=== PATIENT | male | born 1960 | race African-American/Black ===

== ENCOUNTER 2020-09-18 16:55 | Observation (INO) | payer MEDICARE, OTHER ==
[~2020-09-18] VITALS: Ht 175.3 cm; Wt 90.2 kg
[2020-09-18] MEDS ORDERED: NS 500 ML IV ONE (17:15)
[2020-09-18] MEDS ORDERED: NITROGLYCERIN 0.4 MG SUBL TABLET SL PRN (17:15)
[2020-09-18] MEDS ORDERED: ASPIRIN 81 MG CHEW TABLET PO ONE (17:15)
[2020-09-18 17:53] LABS: BASO % 0.6 % (0.0-1.0); EOS # 0.4 10^3/uL (0.0-0.5); EOS % 5.3 % (0.0-3.0); HEMATOCRIT 35.2 % (42.0-52.0); HEMOGLOBIN 11.1 g/dl (13.5-17.5); LYMPH # 2.5 10^3/uL (1.5-5.0); LYMPH % 36.4 % (24.0-44.0); MEAN CORPUSCULAR HGB CONC 31.5 g/dl (32.0-36.5); MEAN CORPUSCULAR VOLUME 82.4 fl (80.0-96.0); MONO # 0.7 10^3/uL (0.0-0.8); MONO % 9.4 % (0.0-5.0); NEUTROPHILS # 3.3 10^3/uL (1.5-8.5); PLATELET COUNT, AUTOMATED 246 10^3/uL (150-450); RED BLOOD COUNT 4.27 10^6/uL (4.30-6.10); WHITE BLOOD COUNT 6.9 10^3/uL (4.0-10.0)
[2020-09-18] MEDS ORDERED: GLIP2.5T6 PO (17:56)
[2020-09-18] MEDS ORDERED: NOVOINJ SC (17:56)
[2020-09-18] MEDS ORDERED: INSUDET SC (17:56)
[2020-09-18] MEDS ORDERED: ASPI81CH33 PO (17:58)
[2020-09-18] MEDS ORDERED: GABA800T4 PO (17:59)
[2020-09-18] MEDS ORDERED: COLC1CAP PO (18:00)
[2020-09-18] MEDS ORDERED: VENL150C43 PO (18:02)
[2020-09-18] MEDS ORDERED: HYDR-4517 PO (18:03)
[2020-09-18 18:04] LABS: INR 0.93; PROTHROMBIN TIME 12.7 SECONDS (12.5-14.3)
[2020-09-18] MEDS ORDERED: KLON1TAB PO (18:04)
[2020-09-18 18:05] LABS: PARTIAL THROMBOPLASTIN TIME 28.1 SECONDS (24.2-38.5)
[2020-09-18] MEDS ORDERED: CARV3.12 PO (18:06)
[2020-09-18 18:07] LABS: D-DIMER QUANT 449.06 ng/ml (<500)
[2020-09-18] MEDS ORDERED: NIFE10CA2 PO (18:07)
[2020-09-18] MEDS ORDERED: LIPI10TA PO (18:09)
[2020-09-18 18:22] LABS: ALBUMIN 3.4 GM/DL (3.2-5.2); ALT/SGPT 31 U/L (12-78); BILIRUBIN,DIRECT < 0.1 MG/DL (0.0-0.2); BILIRUBIN,TOTAL 0.2 MG/DL (0.2-1.0); BLOOD UREA NITROGEN 49 MG/DL (7-18); CALCIUM LEVEL 8.7 MG/DL (8.8-10.2); CARBON DIOXIDE LEVEL 24 MEQ/L (21-32); CHLORIDE LEVEL 108 MEQ/L (98-107); CK-MB VALUE MASS 1.4 NG/ML (<3.6); CPK CREATINE PHOSPHOKINASE 294 U/L (39-308); CREATININE FOR GFR 2.58 MG/DL (0.70-1.30); GLOMERULAR FILTRATION RATE 27.2 (>49); GLUCOSE, FASTING 283 MG/DL (70-100); LIPASE 336 U/L (73-393); MB/CK RELATIVE INDEX 0.48 (< OR =4); NT-PRO BNP 101 PG/ML (<125); POTASSIUM SERUM 4.7 MEQ/L (3.5-5.1); SODIUM LEVEL 139 MEQ/L (136-145); THYROID STIMULATING HORMONE 0.875 uIU/ML (0.358-3.740); TOTAL PROTEIN 7.2 GM/DL (6.4-8.2); TROPONIN I < 0.02 NG/ML (< 0.10)
--- NOTE | 2020-09-18 18:59 | REP ---
INDICATION: CHEST PAIN. COMPARISON: None. TECHNIQUE: SINGLE PORTABLE AP VIEW OF THE CHEST WAS PERFORMED. FINDINGS: There is mild elevation of the right hemidiaphragm with mild linear fibro atelectatic change in the right lung base. There is no acute infiltrate. The heart is not enlarged. The mediastinal silhouette is unremarkable. The visualized osseous structures appear intact with mild degenerative changes at the shoulders. IMPRESSION: NO ACUTE PULMONARY DISEASE. <Electronically signed by Ector Au > 09/18/20 1824
[2020-09-18] MEDS ORDERED: HYDR-4514 PO (20:24)
[2020-09-18] MEDS ORDERED: ATOR80TA59 PO (20:24)
[2020-09-18] MEDS ORDERED: CLON-412 PO (20:24)
[2020-09-18] MEDS ORDERED: NIFE60TA40 PO (20:24)
[2020-09-18] MEDS ORDERED: GLIP10TA6 PO (20:24)
[2020-09-18] MEDS ORDERED: LANTINJ4 SC (20:24)
[2020-09-18] MEDS ORDERED: CHLO125TA PO (20:24)
[2020-09-18] MEDS ORDERED: COMMENTS (20:25)
[2020-09-18] MEDS ORDERED: COLCHICINE 0.6 MG TABLET PO SCH (21:00)
[2020-09-18] MEDS ORDERED: VENLAFAXINE **XR** 75MG CAPSULE PO SCH (21:00)
[2020-09-18] MEDS ORDERED: ENOXAPARIN 40MG/0.4ML SYRINGE (J1650 PER 10MG) SC SCH (21:00)
[2020-09-18] MEDS ORDERED: HumaLOG INSULIN (NovoLOG) PER UNIT SC SCH (21:00)
[2020-09-18] MEDS ORDERED: LEVEMIR (INSULIN DETEMIR) 1 UNITS/0.01ML SC SCH (21:00)
[2020-09-18] MEDS ORDERED: ATORVASTATIN 20 MG TAB PO SCH (21:00)
[2020-09-18 21:05] LABS: HEMOGLOBIN A1c 13.8 %
[2020-09-18] MEDS ORDERED: GLUCAGON INJ 1MG VIAL SC PRN (23:15)
[2020-09-18] MEDS ORDERED: GABAPENTIN 400 MG CAP PO PRN (23:15)
[2020-09-18] MEDS ORDERED: MOM 30ML SUSPENSION UDC PO PRN (23:15)
[2020-09-18] MEDS ORDERED: GLUCOSE 4GM CHEW TABLET PO PRN (23:15)
[2020-09-18] MEDS ORDERED: ACETAMINOPHEN TAB 650MG DOSE (2X325MG) PO PRN (23:15)
[2020-09-18] MEDS ORDERED: DEXTROSE 50% 50 ML SYRINGE IV PRN (23:15)
[2020-09-18] MEDS: NS 1,000 ML IV SCH (23:20)
[2020-09-18 23:55] LABS: CK-MB VALUE MASS 1.7 NG/ML (<3.6); CPK CREATINE PHOSPHOKINASE 243 U/L (39-308); TROPONIN I < 0.02 NG/ML (< 0.10)
[2020-09-19 00:55] VITALS: BP 128/84
[2020-09-19] MEDS: CARVedilol 3.125 MG TAB PO SCH ×2 (01:40→08:24)
[2020-09-19] MEDS: ANEXSIA, NORCO 7.5MG/325MG TABLET(HYDROCODONE/APAP) PO PRN ×2 (01:42→08:37)
--- NOTE | 2020-09-19 03:13 | HPEPDOC ---
[facility] Medical History & Physical Date of Admission Sep 19, 2020 Date of Service: Sep 19, 2020 Attending Physician: Blue Olson MD History and Physical CHIEF COMPLAINT: chest pain, hyperglycemia HISTORY OF PRESENT ILLNESS: Leonard Simental is a 60 YO M with history of DM2, CKD, hx CVA who presents to the ED this evening complaining of chest pain, shortness of breath and difficult to control hyperglycemia. The patient is in the [facility] visiting from [place]. He states that he has had sharp chest pain for "some time now," estimating several months, on the left side of his chest that sometimes radiates down his R arm. He does not recall ever having seen a road cleaner for this pain. The reason he presented tonight is because he is feeling more short of breath with activity. He states he is unable to make it from his bed to the bathroom in his house without getting short of breath and feeling quite fatigued. The shortness of breath is almost always accompanied by his chest pain. He has not been coughing. He states he sleeps on several pillows in order to feel comfortable. He had two CVAs at the end of 2018 and had an extensive stay in inpatient rehabilitation, only recently he started walking with a cane and not requiring a wheelchair to get around. He tells me he feels very deconditioned and have noticed the muscle tone in his legs has decreased significantly. In regards to his hyperglycemia, he was recently treated with oral steroids for a gout flare and attributes that to his difficulty controlling his glucose. PAST MEDICAL HISTORY: 1. DM2, A1c 13.8% 2. CAD, no stents 3. History of CVA x 2 requiring inpatient rehab 4. CKD, diabetic nephropathy, unknown baseline function PAST SURGICAL HISTORY: 1. Hernia repair 2. Neurosurgery, s/p TBI SOCIAL HISTORY: Never smoker, Never drinker, denies other drugs FAMILY HISTORY: Reviewed and noncontributory ALLERGIES: Please see below. REVIEW OF SYSTEMS: Constitutional: No Weight Change, No Fever, No Chills, No Night Sweats, No Fatigue, No Malaise Eyes: No Eye Pain, No Swelling, No Redness, No Foreign Body, No Discharge, No Vision Changes Cardiovascular: Reports sharp intermittent Chest Pain radiating to his R arm, Reports SOB, Reports PND, Reports Dyspnea on Exertion, reports Orthopnea, No Claudication, No Edema, No Palpitations Respiratory: No Cough, No Wheezing, Reports Dyspnea Gastrointestinal: No Nausea, No Vomiting, No Diarrhea, reports some Constipation, No Pain, No Heartburn, No Anorexia, No Dysphagia, No Hematochezia, No Melena, No Flatulence, No Jaundice Genitourinary: No Dysuria Musculoskeletal: No Arthralgias, No Myalgias, No Joint Swelling, No Joint Stiffness, No Back Pain, No Neck Pain Skin: No Skin Lesions, No Pruritis, No Hair Changes, No Breast/Skin Changes, No Nipple Discharge Neuro: No Weakness, No Numbness, No Paresthesias, No Loss of Consciousness, No Syncope, No Dizziness, No Headache, No Coordination Changes, No Recent Falls Psych: No Anxiety/Panic, No Depression, No Insomnia, No Personality Changes, No Delusions HOME MEDICATIONS: Please see below. PHYSICAL EXAMINATION: VITAL SIGNS: see below GENERAL: alert and oriented, in no apparent distress, pleasant and conversant in full sentences. HEENT: PERRL, EOMI, Oral mucous membranes are moist without lesions. NECK: The patient has no noted JVD. No adenopathy is appreciated. No thyromegaly CHEST/LUNGS: Lungs are clear bilaterally without rhonchi, rales, or wheezes. There is no subcutaneous air appreciated. There is no tenderness to the chest wall. HEART: Regular rate and rhythm. No murmurs, rubs, or gallops are appreciated. Distal pulses are 2+. No carotid bruits appreciated. ABDOMEN: Soft, nontender, and nondistended. Bowel sounds are positive. No organomegaly is appreciated. No masses are appreciated. There are no peritoneal signs. There is no Blanchard sign. EXTREMITIES: No peripheral edema. There is no focal long bone tenderness or deformity. SKIN: The patients skin is warm and dry, without rashes or lesions. PSYCHIATRIC: AAO x 3, normal mood/affect NEUROLOGIC: The patient has 5/5 strength to the upper and lower extremities bilaterally. Sensation is intact throughout. Deep tendon reflexes are 2+ in all four extremities. There are no deficits to the cranial nerves. LABORATORY DATA: See below. IMAGING: CXR: FINDINGS: There is mild elevation of the right hemidiaphragm with mild linear fibro atelectatic change in the right lung base. There is no acute infiltrate. The heart is not enlarged. The mediastinal silhouette is unremarkable. The visualized osseous structures appear intact with mild degenerative changes at the shoulders. IMPRESSION: NO ACUTE PULMONARY DISEASE. RENAL US: Pending official read MICROBIOLOGY: Please see below. ASSESSMENT: This is a 60 YO M with history of DM2, CAD, CVA x2 who presents with shortness of breath, fatigue and chest pain found to have acute kidney injury (unsure of baseline renal function) and hyperglycemia. He will be admitted for observation of cardiac function and for management of hyperglycemia. PLAN: 1. Chest pain: concerning for anginal symptoms considering the time course. EKG and cardiac markers are normal thus far. Patient will likely need outpatient follow up for stress test. -EKG NSR x2 without concerning ST changes -Troponins x 2 negative -s/p ASA in ED -Day team may benefit from getting PCP records from [place] to better understand his dx of CAD and perhaps get most recent studies (cath, Echo, EKG, etc) -Continue ASA, Atorvastatin 2. Hyperglycemia: in the setting of recent steroid use for gout flare -A1c found to be 13.8% -Will continue home Levemir 40U, SSI, Hypoglycemic protocol -Holding home Glipizide 3. Acute kidney injury: -Unsure of patient's baseline renal function but in speaking to the he has never been told he has renal dysfunction before. -Renal US pending -UA negative -Holding home nephrotoxic medications -IV fluids NS 100cc/hr -Holding home Chlorthalidone 4. HTN: -Continue home Clonidine, Coreg 5. Chronic pain: -Continue home Gabapentin 6. Mood disorder: -Continue home Venlafaxine DVT ppx: Lovenox DISPO: Observation, telemetry. Likely dc within 24h Vital Signs Vital Signs Date Time Temp Pulse Resp B/P (MAP) Pulse Ox O2 Delivery O2 Flow Rate FiO2 09/19/20 01:42 15 09/19/20 01:40 59 09/19/20 00:55 98.1 128/84 (99) 98 Room Air Laboratory Data Labs 24H Laboratory Tests 2 09/18/20 17:33: Estimated Mean Plasma Glucose 349H, Hemoglobin A1c 13.8 09/18/20 17:34: Immature Granulocyte % (Auto) 0.3, Neutrophils (%) (Auto) 48.0, Lymphocytes (%) (Auto) 36.4, Monocytes (%) (Auto) 9.4H, Eosinophils (%) (Auto) 5.3H, Basophils (%) (Auto) 0.6, Neutrophils # (Auto) 3.3, Lymphocytes # (Auto) 2.5, Monocytes # (Auto) 0.7, Eosinophils # (Auto) 0.4, Basophils # (Auto) 0.0, Nucleated Red Blood Cells % (auto) 0.0, Prothrombin Time 12.7, Prothromb Time International Ratio 0.93, Activated Partial Thromboplast Time 28.1, D-Dimer, Quantitative 449.06, Anion Gap 7L, Glomerular Filtration Rate 27.2L, Calcium Level 8.7L, Total Bilirubin 0.2, Direct Bilirubin < 0.1, Aspartate Amino Transf (AST/SGOT) 14, Alanine Aminotransferase (ALT/SGPT) 31, Alkaline Phosphatase 142H, Total Creatine Kinase 294, Creatine Kinase MB 1.4, Creatine Kinase MB Relative Index 0.48, Troponin I < 0.02, UN-Ugb-Q-Type Natriuretic Peptide 101, Total Protein 7.2, Albumin 3.4, Albumin/Globulin Ratio 0.9, Lipase 336, Thyroid Stimulating Hormone (TSH) 0.875 09/18/20 19:16: Bedside Glucose (Misc Panel) 236H 09/18/20 21:11: Coronavirus (COVID-19)(PCR) NEGATIVE 09/18/20 23:00: Total Creatine Kinase 243, Creatine Kinase MB 1.7, Creatine Kinase MB Relative Index 0.70, Troponin I < 0.02 09/18/20 23:59: Urine Color YELLOW, Urine Appearance CLEAR, Urine pH 5.0, Urine Specific Lucas 1.014, Urine Protein NEGATIVE, Urine Glucose (UA) 3+H, Urine Ketones NEGATIVE, Urine Blood NEGATIVE, Urine Nitrite NEGATIVE, Urine Bilirubin NEGATIVE, Urine Urobilinogen 0.2, Urine Leukocyte Esterase NEGATIVE, Urine WBC (Auto) 0, Urine RBC (Auto) 0, Urine Hyaline Casts (Auto) 0, Urine Bacteria (Auto) NEGATIVE, Urine Squamous Epithelial Cells 0, Urine Sperm (Auto) CBC/BMP Laboratory Tests 09/18/20 17:34 Home Medications Scheduled Aspirin (Aspirin) 81 Mg Tab.chew, 81 MG PO QHS Atorvastatin Calcium (Atorvastatin Calcium) 80 Mg Tablet, 80 MG PO QHS Carvedilol (Carvedilol) 3.125 Mg Tablet, 3.125 MG PO BID Chlorthalidone (Chlorthalidone) 25 Mg Tablet, 25 MG PO DAILY Clonidine HCl (Clonidine HCl) 0.1 Mg Tablet, 0.1 MG PO Q2D Colchicine (Colchicine) 0.6 Mg Capsule, 0.6 MG PO QHS Glipizide (Glipizide) 10 Mg Tablet, 10 MG PO QHS Insulin Aspart (Novolog) 100 Unit/1 Ml Cartridge, 1 UNITS SC ASDIRECTED SLIDING SCALE Insulin Glargine,Hum.rec.anlog (Lantus Solostar) 100 Unit/1 Ml Insuln.pen, 40 UNITS SC QHS Nifedipine (Nifedipine ER) 60 Mg Tablet.er, 60 MG PO QHS Venlafaxine HCl (Venlafaxine HCl ER) 150 Mg Cap.er.24h, 150 MG PO QHS Scheduled PRN Clonazepam (Klonopin) 1 Mg Tablet, 1 MG PO BID PRN for anxiety Gabapentin (Gabapentin) 800 Mg Tablet, 800 MG PO BID PRN for PAIN Hydrocodone/Acetaminophen (Hydrocodone-Acetamin 7.5-325) 1 Each Tablet, 1 TAB PO QID PRN for PAIN Miscellaneous Medications [Comments] PATIENT OFTEN ALTERNATES MEDS INSTEAD OF TAKING EVERY DAY Allergies Coded Allergies: No Known Allergies (Verified Allergy, Unknown, 09/18/20) A-FIB/CHADSVASC A-FIB History Current/History of A-Fib/PAF?: No Current PO Anticoag Therapy: No GME ATTESTATION GME ATTESTATION My faculty preceptor for this patient encounter was physically present during the encounter and was fully available. All aspects of the patient interview, examination, medical decision making process, and medical care plan development were reviewed and approved by the faculty preceptor. The faculty preceptor is aware and concurs with the plan as stated in the body of this note and will attest to such by his/her cosignature. NUHA ARANA MD Sep 19, 2020 01:52
[2020-09-19 06:00] VITALS: BP 151/87
[2020-09-19 07:30] LABS: HEMATOCRIT 34.8 % (42.0-52.0); HEMOGLOBIN 10.7 g/dl (13.5-17.5); MEAN CORPUSCULAR HEMOGLOBIN 25.7 pg (27.0-33.0); MEAN CORPUSCULAR HGB CONC 30.7 g/dl (32.0-36.5); MEAN CORPUSCULAR VOLUME 83.7 fl (80.0-96.0); PLATELET COUNT, AUTOMATED 237 10^3/uL (150-450); RED BLOOD COUNT 4.16 10^6/uL (4.30-6.10); WHITE BLOOD COUNT 6.1 10^3/uL (4.0-10.0)
[2020-09-19] MEDS ORDERED: HumaLOG INSULIN (NovoLOG) PER UNIT SC SCH (07:30)
[2020-09-19 08:05] LABS: BLOOD UREA NITROGEN 41 MG/DL (7-18); CALCIUM LEVEL 9.1 MG/DL (8.8-10.2); CARBON DIOXIDE LEVEL 26 MEQ/L (21-32); CHLORIDE LEVEL 108 MEQ/L (98-107); CK-MB VALUE MASS 1.9 NG/ML (<3.6); CPK CREATINE PHOSPHOKINASE 251 U/L (39-308); CREATININE FOR GFR 1.98 MG/DL (0.70-1.30); GLOMERULAR FILTRATION RATE 44.7 (>49); GLUCOSE, FASTING 257 MG/DL (70-100); MB/CK RELATIVE INDEX 0.76 (< OR =4); POTASSIUM SERUM 4.7 MEQ/L (3.5-5.1); SODIUM LEVEL 138 MEQ/L (136-145); TROPONIN I < 0.02 NG/ML (< 0.10)
[2020-09-19 08:23] VITALS: BP 146/89
[2020-09-19] MEDS: NS 1,000 ML IV SCH (08:38)
--- NOTE | 2020-09-19 08:59 | ECGEPIP ---
[facility] - ED Test Date: 2020-09-18 Pat Name: CAROLA DUNN Department: Room: [place] [address] Gender: Male Jinrikisha Driver: digna : 1960 Requested By: Kristin Herron Order Number: [id number] Reading MD: Kristin Herron Measurements Intervals [place] Rate: 65 P: 50 [place]: 165 QRS: -1 QRSD: 110 T: 91 QT: 384 QTc: 402 Interpretive Statements SINUS RHYTHM NONSPECIFIC ST & T-WAVE ABNORMALITY SIMILAR 09/18/2017:13 Electronically Signed on 09-19-2020 8:59:01 EST by Kristin Herron
[2020-09-19] MEDS ORDERED: cloNIDine 0.1 MG TAB PO SCH (09:00)
--- NOTE | 2020-09-19 09:48 | REP ---
INDICATION: MARTY?. COMPARISON: None. TECHNIQUE: Real-time sonographic evaluation of the kidneys is performed. FINDINGS: Renal cortical echogenicity pattern is normal bilaterally and contours are smooth. There is no evidence of hydronephrosis, cyst, mass, or calculus in either kidney. The right kidney measures 11.0 x 5.9 x 5.0 cm. Left renal dimensions are 10.9 x 4.5 x 5.7 cm. The urinary bladder is not distended. IMPRESSION: Negative renal ultrasound. <Electronically signed by Ector Au > 09/19/20 0955
[2020-09-19] MEDS ORDERED: MUCI600T31 PO (10:10)
[2020-09-19] MEDS ORDERED: LANTINJ4 SC (10:10)
--- NOTE | 2020-09-19 15:52 | DSES ---
DISCHARGE SUMMARY DATE OF ADMISSION: 09/18/2020 DATE OF DISCHARGE: 09/19/2020 DIAGNOSES: 1. Noncardiac chest pain. 2. Poorly controlled type 2 diabetes. 3. Chronic kidney disease, stage III 4. Anemia secondary to chronic kidney disease. HISTORY: Leonard Simental was admitted with atypical chest pain. He had the discomfort in his left upper chest, says he attributes to post nasal drip and upper respiratory congestion. He has a history of coronary artery disease, type 2 diabetes was poorly controlled with hemoglobin A1c over 13%. History of strokes. History of diabetic nephropathy and with stage III chronic kidney disease. HOSPITAL COURSE: Admitted to telemetry bed. He had no arrhythmias. Cardiac enzymes were negative. Troponins were flat. On the day of discharge, he was eager to go home. His blood pressure is 146/89. His chest discomfort has resolved. He has postnasal drainage and congestion. Lungs clear. Abdomen soft, nontender. No peripheral edema. LABORATORY : As summarized above. Chest x-ray: No heart disease. DISPOSITION: The patient is discharged and improved in stable condition. Follow up with his primary care provider as an outpatient. [place]. Apparently has been out of his Lantus insulin for quite a while. So, I will send a prescription for Lantus insulin 40 units subcutaneous q.h.s. He should continue his other medications as he was taking previously and he claims to have sufficient numbers of these and he wanted something for his congestion, so I have ordered some Mucinex for him as well. His diet should be no concentrated sweets, no added salt, low fat, cholesterol. Activity as tolerated. Follow up with his primary care provider (PCP) with particular attention towards his diabetic issues upon returning home.
[2020-09-19] MEDS ORDERED: ASPIRIN 81 MG CHEW TABLET PO SCH (21:00)
--- NOTE | 2020-09-20 20:29 | ECGEPIP ---
[facility] Test Date: 2020-09-18 Pat Name: CAROLA DUNN Department: Room: [place] [address] Gender: Male Indirect Sales Representative: milly : 1960 Requested By: NUHA ARANA Order Number: [id number] Reading MD: Rogelio Mcallister Measurements Intervals [place] Rate: 72 P: 60 [place]: 162 QRS: 8 QRSD: 84 T: 86 QT: 366 QTc: 402 Interpretive Statements SINUS RHYTHM NONSPECIFIC ST & T-WAVE ABNORMALITY No prior ECG available for comparison at the time of interpretation. Electronically Signed on 09-20-2020 20:28:57 EST by Rogelio Mcallister
== END 2020-09-19 11:54 | disposition home or self-care (01) ==
LOC: M ED 16:55 → M ED INP 16:56 → EDBEDREQSVC 19:59 → M MSPAV 09-19 00:56
PROVIDERS: ADMIT Family Medicine; ATTEND Family Medicine
DX: R07.89 Other chest pain (principal); E11.21 Type 2 diabetes mellitus with diabetic nephropathy; E11.65 Type 2 diabetes mellitus with hyperglycemia; N18.30 Chronic kidney disease, stage 3 unspecified; D63.1 Anemia in chronic kidney disease; N17.9 Acute kidney failure, unspecified; Z86.73 Personal history of transient ischemic attack (TIA), and cerebral infarction without residual deficits; M10.9 Gout, unspecified; I10 Essential (primary) hypertension; I25.10 Atherosclerotic heart disease of native coronary artery without angina pectoris; G89.29 Other chronic pain; F39 Unspecified mood [affective] disorder; Z79.4 Long term (current) use of insulin; Z79.899 Other long term (current) drug therapy; Z79.82 Long term (current) use of aspirin; Z88.8 Allergy status to other drugs, medicaments and biological substances
CPT/HCPCS: 36415; 71045; 76775; 80048; 80076; 81001; 82550; 82553; 83036; 83690; 83880; 84443; 84484; 85025; 85027; 85379; 85610; 85730; 93005; 93041; 94760; 96360; 96361; 96372; 99285; G0378; J1650; U0002

== ENCOUNTER 2021-07-27 19:32 | Emergency (ER) | payer MEDICARE, OTHER ==
[~2021-07-27] VITALS: Ht 175.3 cm; Wt 90.9 kg
[~2021-07-27 19:32] MED LIST: ASPI81CH33 PO; ATOR80TA59 PO; CARV3.12 PO; CHLO125TA PO; CLON-412 PO; COLC1CAP PO; COMMENTS; GABA800T4 PO; GLIP10TA6 PO; GLIP2.5T6 PO; HYDR-4514 PO; HYDR-4517 PO; INSUDET SC; KLON1TAB PO; LANTINJ4 SC; LIPI10TA PO; MUCI600T31 PO; NIFE10CA2 PO; NIFE60TA40 PO; NOVOINJ SC; VENL150C43 PO
--- OUTSIDE RECORDS SUMMARY | 2021-07-27 19:37 | CCD ---
Author Author [facility] Address Unknown Phone Unavailable Support Name Relationship Address Phone RE Next Of Kin Unknown Unavailable ROYA DUNN Next Of Kin [address], [place] [id number] Re-disclosure Warning The records that you are about to access may contain information from federally-assisted alcohol or drug abuse programs. If such information is present, then the following federally mandated warning applies: This information has been disclosed to you from records protected by federal confidentiality rules (42 CFR part 2). The federal rules prohibit you from making any further disclosure of this information unless further disclosure is expressly permitted by the written consent of the person to whom it pertains or as otherwise permitted by 42 CFR part 2. A general authorization for the release of medical or other information is NOT sufficient for this purpose. The Federal rules restrict any use of the information to criminally investigate or prosecute any alcohol or drug abuse patient.The records that you are about to access may contain highly sensitive health information, the redisclosure of which is protected by Article 27-F of the [facility] Public Health law. If you continue you may have access to information: Regarding HIV / AIDS; Provided by facilities licensed or operated by the [facility] Office of Mental Health; or Provided by the [facility] Office for People With Developmental Disabilities. If such information is present, then the following [facility] mandated warning applies: This information has been disclosed to you from confidential records which are protected by state law. State law prohibits you from making any further disclosure of this information without the specific written consent of the person to whom it pertains, or as otherwise permitted by law. Any unauthorized further disclosure in violation of state law may result in a fine or usp sentence or both. A general authorization for the release of medical or other information is NOT sufficient authorization for further disc losure. Medications No Information Insurance Providers Payer name Policy type / Coverage type Policy ID Covered alliance party ID Covered alliance party's relationship to alanis Policy Alanis Plan Information MEDICARE [id number] FOR LIFE [id number] MEDICARE [id number] Problems, Conditions, and Diagnoses No Information Surgeries/Procedures No Information Results ID Date Data Source [id number] 09/18/2020 09:11:00 PM EST [facility] Name Value Range Interpretation Code Description Data Sylvia rce(s) Supporting Document(s) SARS coronavirus 2 RNA [Presence] in Res piratory specimen by [place] with probe detection [facility] This lab was ordered by [facility] a nd reported by [facility]. Procedure Social History No Information
[2021-07-27] MEDS ORDERED: MORPHINE 2 MG/ML 1ML VIAL (J2270) IV ONE (20:45)
[2021-07-27] MEDS ORDERED: PERCOCET 5MG/325MG TAB PO ONE (20:45)
[2021-07-27] MEDS ORDERED: CHLORTHALIDONE 25 MG TAB PO ONE (20:45)
[2021-07-27] MEDS ORDERED: COLCHICINE 0.6 MG TABLET PO ONE (20:45)
[2021-07-27] MEDS ORDERED: lisinopriL 40 MG TAB PO ONE (20:45)
[2021-07-27 21:10] LABS: APPEARANCE, URINE CLEAR (CLEAR); BACTERIA, URINE AUTO NEGATIVE (NEGATIVE); BILIRUBIN, URINE AUTO NEGATIVE (NEGATIVE); BLOOD, URINE BLOOD 1+ (NEGATIVE); COLOR, URINE STRAW (YELLOW); GLUCOSE, URINE (UA) AUTO 3+ mg/dL (NEGATIVE); KETONE, URINE AUTO NEGATIVE (NEGATIVE); LEUKOCYTE ESTERASE, URINE AUTO NEGATIVE (NEGATIVE); NITRITE, URINE AUTO NEGATIVE (NEGATIVE); PROTEIN, URINE AUTO 2+ mg/dL (NEGATIVE); RBC, URINE AUTO 1 /HPF (0-3); SPECIFIC GRAVITY URINE AUTO 1.018 (1.002-1.035); SQUAMOUS EPITHELIAL CELL UR AU 0 /HPF (0-6); UROBILINOGEN, URINE AUTO 0.2 mg/dL (0.0-2.0); WBC, URINE AUTO 0 /HPF (0-3)
[2021-07-27 21:12] LABS: BASO % 0.3 % (0.0-1.0); EOS # 0.4 10^3/uL (0.0-0.5); HEMATOCRIT 32.3 % (42.0-52.0); LYMPH # 1.4 10^3/uL (1.5-5.0); LYMPH % 12.1 % (24.0-44.0); MEAN CORPUSCULAR HEMOGLOBIN 26.3 pg (27.0-33.0); MONO # 1.4 10^3/uL (0.0-0.8); MONO % 11.8 % (2.0-8.0); NEUTROPHILS # 8.4 10^3/uL (1.5-8.5); NEUTROPHILS % 72.3 % (36.0-66.0); PLATELET COUNT, AUTOMATED 234 10^3/uL (150-450); WHITE BLOOD COUNT 11.6 10^3/uL (4.0-10.0)
[2021-07-27] MEDS ORDERED: NIFEdipine 30 MG XL TAB PO STA (21:19)
[2021-07-27] MEDS ORDERED: NIFE1TAB52 PO (21:20)
[2021-07-27] MEDS ORDERED: LISI40TA4 PO (21:21)
[2021-07-27] MEDS ORDERED: ATOR80TA59 PO (21:21)
[2021-07-27] MEDS ORDERED: CHLO50TA PO (21:21)
[2021-07-27] MEDS ORDERED: CLOP75TA2 PO (21:22)
[2021-07-27] MEDS ORDERED: HYDR-3716 PO (21:24)
[2021-07-27 21:34] LABS: CREATININE FOR GFR 2.51 MG/DL (0.70-1.30); GLOMERULAR FILTRATION RATE 33.9 (>49); POTASSIUM SERUM 4.8 MEQ/L (3.5-5.1)
[2021-07-27 21:35] LABS: CALCIUM LEVEL 8.3 MG/DL (8.8-10.2)
[2021-07-27] MEDS ORDERED: HumuLIN R (REGULAR) INSULIN (NovoLIN R) **100U/ML** PER UNIT IV ONE (21:45)
[2021-07-27 22:33] VITALS: BP 198/124
--- NOTE | 2021-07-27 22:54 | REPVR ---
PROCEDURE INFORMATION: Exam: XR Chest Exam date and time: 07/27/2021 9:51 PM Age: 61 years old Clinical indication: Other: HTN TECHNIQUE: Imaging protocol: XR of the chest. Views: 1 view. COMPARISON: No relevant prior studies available. FINDINGS: Lungs: Hypoexpanded lungs. No consolidation. Pleural spaces: Unremarkable. No pleural effusion. No pneumothorax. Heart/Mediastinum: Unremarkable. No cardiomegaly. Bones/joints: Unremarkable. IMPRESSION: No acute findings. Electronically signed by: Rogelio Brower On 07/27/2021 22:53:56 PM
[2021-07-27] MEDS ORDERED: NORCO 5/325MG TABLET (BULK FOR ED) PO ONE (23:35)
[2021-07-28 00:56] VITALS: BP 176/106
--- NOTE | 2021-07-28 18:59 | ECGEPIP ---
[facility] - ED Test Date: 2021-07-27 Pat Name: CAROLA DUNN Department: Room: - Gender: Male Principal Secretary: DERICK : 1961-06-26 Requested By: Yang Baum Order Number: [id number] Reading MD: Kristin Herron Measurements Intervals [place] Rate: 92 P: 59 [place]: 168 QRS: 5 QRSD: 80 T: 33 QT: 340 QTc: 420 Interpretive Statements Normal sinus rhythm Nonspecific T wave abnormality increased rate 09/18/20 Electronically Signed on 07-28-2021 18:59:34 EDT by Kristin Herron
== END 2021-07-28 01:15 | disposition home or self-care (01) ==
LOC: M ED 19:32 → EDBD 19:32 → M ED 07-28 01:15
DX: E11.65 Type 2 diabetes mellitus with hyperglycemia (principal); I13.10 Hypertensive heart and chronic kidney disease without heart failure, with stage 1 through stage 4 chronic kidney disease, or unspecified chronic kidney disease; N18.1 Chronic kidney disease, stage 1; M19.90 Unspecified osteoarthritis, unspecified site; M79.601 Pain in right arm; M25.561 Pain in right knee; M25.562 Pain in left knee; I25.2 Old myocardial infarction; F41.9 Anxiety disorder, unspecified; F32.A Depression, unspecified; F17.200 Nicotine dependence, unspecified, uncomplicated; Z79.4 Long term (current) use of insulin; Z79.899 Other long term (current) drug therapy
CPT/HCPCS: 71045; 80048; 81001; 85025; 93005; 93041; 96374; 99285; J2270

== ENCOUNTER 2022-09-22 04:13 | Emergency (ER) | payer MEDICARE, OTHER ==
[~2022-09-22 04:13] MED LIST changes: +CHLO50TA PO; +CLOP75TA2 PO; +HYDR-3716 PO; +LISI40TA4 PO; +NIFE1TAB52 PO
[2022-09-22 04:45] LABS: BASO % 0.3 % (0.0-1.0); EOS # 0.4 10^3/uL (0.0-0.5); EOS % 3.6 % (0.0-3.0); HEMATOCRIT 30.1 % (42.0-52.0); HEMOGLOBIN 9.6 g/dl (13.5-17.5); LYMPH # 1.3 10^3/uL (1.5-5.0); LYMPH % 13.1 % (24.0-44.0); MEAN CORPUSCULAR HGB CONC 31.9 g/dl (32.0-36.5); MEAN CORPUSCULAR VOLUME 84.6 fl (80.0-96.0); MONO % 10.2 % (2.0-8.0); NEUTROPHILS # 7.3 10^3/uL (1.5-8.5); NEUTROPHILS % 72.6 % (36.0-66.0); PLATELET COUNT, AUTOMATED 402 10^3/uL (150-450); RED BLOOD COUNT 3.56 10^6/uL (4.30-6.10)
[2022-09-22] MEDS ORDERED: MORPHINE 4 MG/ML 1ML VIAL IV ONE (04:55)
[2022-09-22 04:56] LABS: LIPASE 56 U/L (12-53)
[2022-09-22 04:58] LABS: ALBUMIN 3.1 G/DL (3.2-5.2); ALKALINE PHOSPHATASE 140 U/L (46-116); ALT/SGPT 26 U/L (7.0-40); AST/SGOT 14 U/L (<34); BILIRUBIN,DIRECT < 0.1 MG/DL (<0.4); BILIRUBIN,TOTAL 0.2 MG/DL (0.3-1.2); BLOOD UREA NITROGEN 47 MG/DL (9-23); CALCIUM LEVEL 8.9 MG/DL (8.3-10.6); CARBON DIOXIDE LEVEL 23 MMOL/L (20-31); CHLORIDE LEVEL 104 MMOL/L (98-107); CK-MB VALUE MASS 1.2 NG/ML (<3.6); CPK CREATINE PHOSPHOKINASE 300 U/L (46-171); CREATININE FOR GFR 2.65 MG/DL (0.70-1.30); GLOMERULAR FILTRATION RATE 31.8 (>49); GLUCOSE, FASTING 247 MG/DL (74-106); POTASSIUM SERUM 4.9 MMOL/L (3.5-5.1); SODIUM LEVEL 135 MMOL/L (136-145)
[2022-09-22] MEDS ORDERED: NS 1,000 ML IV ONE (06:05)
[2022-09-22] MEDS ORDERED: diazePAM 10MG/2ML SYRINGE (J3360 PER 5MG) IV ONE (06:20)
[2022-09-22 08:15] VITALS: BP 161/86
== END 2022-09-22 08:25 | disposition home or self-care (01) ==
LOC: M ED 04:13 → EDBD 04:13 → M ED 08:25
DX: G89.4 Chronic pain syndrome (principal); E11.9 Type 2 diabetes mellitus without complications; I10 Essential (primary) hypertension; E78.5 Hyperlipidemia, unspecified; Z79.84 Long term (current) use of oral hypoglycemic drugs; Z79.811 Long term (current) use of aromatase inhibitors; Z79.82 Long term (current) use of aspirin; Z79.899 Other long term (current) drug therapy
CPT/HCPCS: 71045; 80048; 80076; 82550; 82553; 83690; 84484; 85025; 85730; 87486; 87581; 87633; 87798; 93005; 93041; 94760; 96361; 96374; 96375; 99284; J2270; J3360

== ENCOUNTER 2022-10-29 14:01 | Inpatient (IN) | payer MEDICARE, OTHER ==
[~2022-10-29] VITALS: Ht 175.3 cm; Wt 89.9 kg
[2022-10-29] MEDS ORDERED: MORPHINE 4 MG/ML 1ML VIAL IV ONE (17:15)
[2022-10-29] MEDS ORDERED: NS 1,000 ML IV ONE (17:15)
[2022-10-29 17:51] LABS: BASO # 0.1 10^3/uL (0.0-0.2); BASO % 0.4 % (0.0-1.0); EOS % 0.1 % (0.0-3.0); HEMATOCRIT 33.7 % (42.0-52.0); HEMOGLOBIN 10.4 g/dl (13.5-17.5); LYMPH # 2.5 10^3/uL (1.5-5.0); LYMPH % 15.3 % (24.0-44.0); MEAN CORPUSCULAR HEMOGLOBIN 26.4 pg (27.0-33.0); MEAN CORPUSCULAR HGB CONC 30.9 g/dl (32.0-36.5); MEAN CORPUSCULAR VOLUME 85.5 fl (80.0-96.0); NEUTROPHILS # 11.1 10^3/uL (1.5-8.5); NEUTROPHILS % 68.7 % (36.0-66.0); PLATELET COUNT, AUTOMATED 290 10^3/uL (150-450); RED BLOOD COUNT 3.94 10^6/uL (4.30-6.10); WHITE BLOOD COUNT 16.1 10^3/uL (4.0-10.0)
[2022-10-29 18:01] LABS: INR 1.08; PROTHROMBIN TIME 14.2 SECONDS (12.5-14.5)
[2022-10-29 18:02] LABS: PARTIAL THROMBOPLASTIN TIME 36.6 SECONDS (24.8-34.2)
[2022-10-29 18:10] LABS: URIC ACID 7.3 MG/DL (3.7-9.2)
[2022-10-29 18:12] LABS: C REACTIVE PROTEIN QUANTITATIV 26.6 MG/DL (<1.0)
[2022-10-29 18:13] LABS: BILIRUBIN,DIRECT 0.4 MG/DL (<0.4)
[2022-10-29 18:14] LABS: BILIRUBIN,TOTAL 0.9 MG/DL (0.3-1.2); CALCIUM LEVEL 8.6 MG/DL (8.3-10.6); CREATININE FOR GFR 2.21 MG/DL (0.70-1.30); GLOMERULAR FILTRATION RATE 39.3 (>49); POTASSIUM SERUM 4.2 MMOL/L (3.5-5.1); TOTAL PROTEIN 7.4 G/DL (5.7-8.2)
[2022-10-29 18:26] LABS: RSV AMPLIFICATION NEGATIVE (NEGATIVE)
[2022-10-29 19:01] LABS: ERYTHROCYTE SEDIMENTATION RATE > 130 mm/hr (0-20)
[2022-10-29 19:03] LABS: MONO # 2.4 10^3/uL (0.0-0.8)
[2022-10-29] MEDS ORDERED: VANCOMYCIN HCL 1,750 MG in IV FLUID PLACE HOLDER 1 EA IV ONE (19:15)
[2022-10-29] MEDS ORDERED: PIPERACILLIN/TAZOBACTAM SOD 4.5 GM in D5W MINI-BAG PLUS 50 ML IV ONE (19:15)
[2022-10-29] MEDS ORDERED: ACETAMINOPHEN TAB 650MG DOSE (2X325MG) PO PRN (19:50)
[2022-10-29] MEDS ORDERED: VANCOMYCIN HCL 1,000 MG, VIAL MATE ADAPTER 1 EACH in D5W 250 ML IV ONE (20:00)
[2022-10-29] MEDS ORDERED: VANCOMYCIN HCL 750 MG, VIAL MATE ADAPTER 1 EACH in D5W 250 ML IV ONE (20:00)
[2022-10-29] MEDS: NS 1,000 ML IV SCH (20:09)
[2022-10-29] MEDS ORDERED: CHLO50TA PO (20:13)
[2022-10-29] MEDS ORDERED: GABA600T4 PO (20:13)
[2022-10-29] MEDS ORDERED: CLOP75TA99 PO (20:13)
[2022-10-29] MEDS ORDERED: NIFE30TA50 PO (20:13)
[2022-10-29] MEDS ORDERED: ATOR80TA59 PO (20:13)
[2022-10-29] MEDS ORDERED: STEGLATRO (20:15)
[2022-10-29] MEDS ORDERED: ALLO10TA PO (20:15)
[2022-10-29] MEDS ORDERED: BACL10TA2 PO (20:15)
[2022-10-29] MEDS ORDERED: allopurinoL 300 MG TAB PO PRN (20:20)
[2022-10-29] MEDS ORDERED: GLUCAGON INJ 1MG VIAL SC PRN (20:20)
[2022-10-29] MEDS ORDERED: GLUCOSE 4GM CHEW TABLET PO PRN (20:20)
[2022-10-29] MEDS ORDERED: DEXTROSE 50% 50ML SYRINGE IV PRN (20:20)
[2022-10-29] MEDS ORDERED: HOME MED LIST COMPLETE! XX SCH (20:20)
[2022-10-29] MEDS: INSULIN LISPRO (NovoLOG) PER UNIT SC SCH (21:00)
[2022-10-29] MEDS: ATORVASTATIN 20 MG TAB PO SCH (21:51)
[2022-10-29] MEDS: GABAPENTIN 300 MG CAP PO SCH (21:51)
[2022-10-29] MEDS: BACLOFEN 10 MG TAB PO SCH (21:51)
[2022-10-29] MEDS: MORPHINE 4 MG/ML 1ML VIAL IV PRN (21:51)
[2022-10-29] MEDS: CARVedilol 3.125 MG TAB PO SCH (21:52)
[2022-10-29] MEDS: COLCHICINE 0.6 MG TABLET PO SCH (21:52)
[2022-10-29] MEDS: LEVEMIR (INSULIN DETEMIR) 1 UNITS/0.01ML SC SCH (21:59)
[2022-10-29 22:00] VITALS: BP 180/87
[2022-10-29] MEDS: ANEXSIA, NORCO 7.5MG/325MG TABLET(HYDROCODONE/APAP) PO PRN (22:33)
[2022-10-30] VITALS: BP 142/76
[2022-10-30] MEDS ORDERED: methylPREDNISolone 125MG 2ML VIAL IV STA (00:42)
[2022-10-30] MEDS ORDERED: PIPERACILLIN/TAZOBACTAM SOD 2.25 GM in D5W MINI-BAG PLUS 50 ML IV SCH (02:00)
[2022-10-30] MEDS ORDERED: PIPERACILLIN/TAZOBACTAM SOD 3.375 GM in D5W MINI-BAG PLUS 50 ML IV SCH (02:00)
[2022-10-30 04:00] VITALS: BP 142/66
[2022-10-30 06:41] LABS: HEMATOCRIT 29.9 % (42.0-52.0); HEMOGLOBIN 9.2 g/dl (13.5-17.5); MEAN CORPUSCULAR HEMOGLOBIN 26.2 pg (27.0-33.0); MEAN CORPUSCULAR HGB CONC 30.8 g/dl (32.0-36.5); MEAN CORPUSCULAR VOLUME 85.2 fl (80.0-96.0); PLATELET COUNT, AUTOMATED 248 10^3/uL (150-450); RED BLOOD COUNT 3.51 10^6/uL (4.30-6.10); WHITE BLOOD COUNT 15.2 10^3/uL (4.0-10.0)
[2022-10-30 07:01] LABS: MAGNESIUM LEVEL 1.4 MG/DL (1.8-2.4)
[2022-10-30 07:08] LABS: ALBUMIN 2.4 G/DL (3.2-5.2); BILIRUBIN,TOTAL 0.8 MG/DL (0.3-1.2); CALCIUM LEVEL 8.1 MG/DL (8.3-10.6); CREATININE FOR GFR 2.25 MG/DL (0.70-1.30); GLOMERULAR FILTRATION RATE 38.4 (>49); POTASSIUM SERUM 4.9 MMOL/L (3.5-5.1)
[2022-10-30] MEDS: INSULIN LISPRO (NovoLOG) PER UNIT SC SCH ×4 (07:30→21:11)
[2022-10-30] MEDS: ASPIRIN 81MG CHEW TABLET PO SCH (08:04)
[2022-10-30] MEDS: CARVedilol 3.125 MG TAB PO SCH (08:05)
[2022-10-30] MEDS: GABAPENTIN 300 MG CAP PO SCH ×3 (08:05→21:09)
[2022-10-30] MEDS: BACLOFEN 10 MG TAB PO SCH ×2 (08:05→21:09)
[2022-10-30] MEDS: VENLAFAXINE **XR** 75MG CAPSULE PO SCH (08:05)
[2022-10-30] MEDS: NS 1,000 ML IV SCH (08:06)
[2022-10-30] MEDS: ANEXSIA, NORCO 7.5MG/325MG TABLET(HYDROCODONE/APAP) PO PRN (08:12)
[2022-10-30] MEDS: NIFEdipine 30MG XL TAB PO SCH ×2 (08:49→10:59)
[2022-10-30] MEDS ORDERED: CHLORTHALIDONE 25 MG TAB PO SCH (09:00)
[2022-10-30] MEDS ORDERED: HYDROMORPHONE HCL 0.5 MG/ 0.5 ML SYRINGE IV ONE (09:35)
[2022-10-30] MEDS ORDERED: ANEXSIA, NORCO 7.5MG/325MG TABLET(HYDROCODONE/APAP) PO ONE (09:35)
[2022-10-30 09:46] LABS: CRYSTALS, BODY FLUID URIC ACID (NONE SEEN); SOURCE, BODY FLUID CRYSTALS RT KNEE
[2022-10-30 09:48] LABS: CRYSTALS, BODY FLUID URIC ACID (NONE SEEN); SOURCE, BODY FLUID CRYSTALS LFT KNEE
[2022-10-30] MEDS ORDERED: **hydrALAZINE** 10 MG TAB PO ONE (10:15)
[2022-10-30 10:21] LABS: SOURCE, BODY FLUID LFT KNEE; SYNOVIAL FLUID COLOR PALE YELLOW (COLORLESS)
[2022-10-30 10:22] LABS: SOURCE, BODY FLUID RT KNEE; SYNOVIAL FLUID COLOR YELLOW (COLORLESS)
[2022-10-30] MEDS ORDERED: CARVedilol 3.125 MG TAB PO ONE (10:30)
[2022-10-30] MEDS: HEPARIN SOD (PORCINE) 5000UNITS/ML 1ML VIAL/SYRINGE SQ SCH ×2 (10:44→21:08)
[2022-10-30] MEDS: ISOSORBIDE DIN. (ISORDIL) 30 MG TAB PO SCH ×2 (12:00→18:42)
[2022-10-30 14:00] VITALS: BP 153/90
[2022-10-30] MEDS: cloNIDine 0.1MG TABLET PO SCH ×2 (16:43→21:00)
[2022-10-30] MEDS ORDERED: **hydrALAZINE** 10 MG TAB PO SCH (18:00)
[2022-10-30 18:30] VITALS: BP 189/98
[2022-10-30] MEDS: **hydrALAZINE HCL** 25 MG TAB PO SCH (18:42)
[2022-10-30] MEDS ORDERED: cloNIDine 0.1MG TABLET PO ONE (18:55)
[2022-10-30 21:00] VITALS: BP 110/81
[2022-10-30] MEDS: ATORVASTATIN 20 MG TAB PO SCH (21:09)
[2022-10-30] MEDS: COLCHICINE 0.6 MG TABLET PO SCH (21:10)
[2022-10-30] MEDS: CARVedilol 6.25 MG TAB PO SCH (21:10)
[2022-10-30] MEDS: LEVEMIR (INSULIN DETEMIR) 1 UNITS/0.01ML SC SCH (21:11)
[2022-10-30 21:30] VITALS: BP 135/85
[2022-10-30] MEDS ORDERED: VANCOMYCIN HCL 1,000 MG, VIAL MATE ADAPTER 1 EACH in NS 250 ML IV SCH (22:00)
[2022-10-31] VITALS: BP 128/80
[2022-10-31] MEDS: cloNIDine 0.1MG TABLET PO SCH ×4 (03:00→20:25)
[2022-10-31] MEDS: methylPREDNISolone 125MG 2ML VIAL IV SCH (04:26)
[2022-10-31] MEDS: **hydrALAZINE HCL** 25 MG TAB PO SCH ×4 (05:05→17:40)
[2022-10-31] MEDS: ISOSORBIDE DIN. (ISORDIL) 30 MG TAB PO SCH ×4 (05:18→17:40)
[2022-10-31 05:47] VITALS: BP 128/79
[2022-10-31 05:53] LABS: BASO % 0.1 % (0.0-1.0); HEMATOCRIT 27.2 % (42.0-52.0); HEMOGLOBIN 8.6 g/dl (13.5-17.5); LYMPH # 1.3 10^3/uL (1.5-5.0); LYMPH % 6.1 % (24.0-44.0); MEAN CORPUSCULAR HGB CONC 31.6 g/dl (32.0-36.5); MEAN CORPUSCULAR VOLUME 85.5 fl (80.0-96.0); MONO # 1.5 10^3/uL (0.0-0.8); MONO % 7.2 % (2.0-8.0); NEUTROPHILS # 17.7 10^3/uL (1.5-8.5); NEUTROPHILS % 85.7 % (36.0-66.0); PLATELET COUNT, AUTOMATED 265 10^3/uL (150-450); RED BLOOD COUNT 3.18 10^6/uL (4.30-6.10); WHITE BLOOD COUNT 20.7 10^3/uL (4.0-10.0)
[2022-10-31 06:19] LABS: CALCIUM LEVEL 8.3 MG/DL (8.3-10.6); CREATININE FOR GFR 2.71 MG/DL (0.70-1.30); POTASSIUM SERUM 5.3 MMOL/L (3.5-5.1)
[2022-10-31 08:17] VITALS: BP 128/79
[2022-10-31] MEDS: INSULIN LISPRO (NovoLOG) PER UNIT SC SCH ×4 (08:18→20:28)
[2022-10-31] MEDS: GABAPENTIN 300 MG CAP PO SCH ×3 (08:18→20:24)
[2022-10-31] MEDS: ASPIRIN 81MG CHEW TABLET PO SCH (08:18)
[2022-10-31] MEDS: BACLOFEN 10 MG TAB PO SCH ×2 (08:18→20:25)
[2022-10-31] MEDS: VENLAFAXINE **XR** 75MG CAPSULE PO SCH (08:18)
[2022-10-31] MEDS: NIFEdipine 30MG XL TAB PO SCH (08:19)
[2022-10-31] MEDS: CARVedilol 6.25 MG TAB PO SCH ×2 (08:19→20:25)
[2022-10-31] MEDS: HEPARIN SOD (PORCINE) 5000UNITS/ML 1ML VIAL/SYRINGE SQ SCH ×2 (08:20→20:26)
[2022-10-31 12:34] LABS: HEMOGLOBIN A1c 8.6 % (4.0-6.0)
[2022-10-31] MEDS: ANEXSIA, NORCO 7.5MG/325MG TABLET(HYDROCODONE/APAP) PO PRN ×2 (12:34→20:38)
[2022-10-31] MEDS: FLUTICASONE PROP 0.05% NASAL SPRAY 16 GM (FLONASE) NARES SCH (13:39)
[2022-10-31 13:50] VITALS: BP 142/88
[2022-10-31 16:57] VITALS: BP 142/88
[2022-10-31] MEDS: ATORVASTATIN 20 MG TAB PO SCH (20:24)
[2022-10-31] MEDS: LEVEMIR (INSULIN DETEMIR) 1 UNITS/0.01ML SC SCH (20:27)
[2022-10-31 22:00] VITALS: BP 171/97
[2022-11-01] MEDS: cloNIDine 0.1MG TABLET PO SCH ×4 (02:49→22:08)
[2022-11-01] MEDS: ANEXSIA, NORCO 7.5MG/325MG TABLET(HYDROCODONE/APAP) PO PRN ×4 (02:50→23:27)
[2022-11-01] MEDS: methylPREDNISolone 125MG 2ML VIAL IV SCH (04:58)
[2022-11-01] MEDS: **hydrALAZINE HCL** 25 MG TAB PO SCH ×5 (04:59→23:37)
[2022-11-01] MEDS: ISOSORBIDE DIN. (ISORDIL) 30 MG TAB PO SCH ×5 (04:59→23:36)
[2022-11-01 05:55] LABS: BASO % 0.1 % (0.0-1.0); HEMATOCRIT 26.3 % (42.0-52.0); HEMOGLOBIN 8.3 g/dl (13.5-17.5); LYMPH # 1.5 10^3/uL (1.5-5.0); LYMPH % 8.7 % (24.0-44.0); MEAN CORPUSCULAR HEMOGLOBIN 26.5 pg (27.0-33.0); MEAN CORPUSCULAR HGB CONC 31.6 g/dl (32.0-36.5); MONO # 1.2 10^3/uL (0.0-0.8); MONO % 6.5 % (2.0-8.0); NEUTROPHILS # 14.8 10^3/uL (1.5-8.5); NEUTROPHILS % 84.1 % (36.0-66.0); PLATELET COUNT, AUTOMATED 289 10^3/uL (150-450); RED BLOOD COUNT 3.13 10^6/uL (4.30-6.10); WHITE BLOOD COUNT 17.6 10^3/uL (4.0-10.0)
[2022-11-01 06:00] VITALS: BP 146/86
[2022-11-01 06:08] LABS: CALCIUM LEVEL 8.2 MG/DL (8.3-10.6); CREATININE FOR GFR 2.36 MG/DL (0.70-1.30); GLOMERULAR FILTRATION RATE 36.4 (>49); POTASSIUM SERUM 4.8 MMOL/L (3.5-5.1)
[2022-11-01] MEDS: BACLOFEN 10 MG TAB PO SCH ×2 (09:04→22:06)
[2022-11-01] MEDS: GABAPENTIN 300 MG CAP PO SCH ×3 (09:04→22:06)
[2022-11-01] MEDS: ASPIRIN 81MG CHEW TABLET PO SCH (09:04)
[2022-11-01] MEDS: CARVedilol 6.25 MG TAB PO SCH ×2 (09:05→22:06)
[2022-11-01] MEDS: NIFEdipine 30MG XL TAB PO SCH (09:05)
[2022-11-01] MEDS: VENLAFAXINE **XR** 75MG CAPSULE PO SCH (09:06)
[2022-11-01] MEDS: HEPARIN SOD (PORCINE) 5000UNITS/ML 1ML VIAL/SYRINGE SQ SCH ×2 (09:08→22:07)
[2022-11-01] MEDS: FLUTICASONE PROP 0.05% NASAL SPRAY 16 GM (FLONASE) NARES SCH (09:09)
[2022-11-01] MEDS: INSULIN LISPRO (NovoLOG) PER UNIT SC SCH ×4 (09:09→22:08)
[2022-11-01 14:00] VITALS: BP 138/90
[2022-11-01 18:38] VITALS: BP 143/96
[2022-11-01 21:14] VITALS: BP 141/95
[2022-11-01] MEDS: ATORVASTATIN 20 MG TAB PO SCH (22:06)
[2022-11-01] MEDS: LEVEMIR (INSULIN DETEMIR) 1 UNITS/0.01ML SC SCH (22:07)
[2022-11-02] MEDS ORDERED: MIRALAX *UNIT DOSE* 17GM PACKET PO PRN (00:25)
[2022-11-02] MEDS ORDERED: SENOKOT S TAB PO ONE (01:00)
[2022-11-02] MEDS: cloNIDine 0.1MG TABLET PO SCH ×4 (03:00→22:28)
[2022-11-02] MEDS: methylPREDNISolone 125MG 2ML VIAL IV SCH (04:01)
[2022-11-02 06:00] VITALS: BP 159/95
[2022-11-02] MEDS: ISOSORBIDE DIN. (ISORDIL) 30 MG TAB PO SCH ×3 (06:09→17:49)
[2022-11-02] MEDS: **hydrALAZINE HCL** 25 MG TAB PO SCH ×3 (06:09→17:49)
[2022-11-02] MEDS: ANEXSIA, NORCO 7.5MG/325MG TABLET(HYDROCODONE/APAP) PO PRN ×2 (06:10→22:27)
[2022-11-02 06:40] LABS: BASO % 0.1 % (0.0-1.0); EOS % 0.3 % (0.0-3.0); HEMOGLOBIN 8.4 g/dl (13.5-17.5); LYMPH # 1.5 10^3/uL (1.5-5.0); LYMPH % 11.8 % (24.0-44.0); MEAN CORPUSCULAR HEMOGLOBIN 26.3 pg (27.0-33.0); MEAN CORPUSCULAR HGB CONC 31.1 g/dl (32.0-36.5); MEAN CORPUSCULAR VOLUME 84.4 fl (80.0-96.0); MONO # 0.7 10^3/uL (0.0-0.8); MONO % 5.6 % (2.0-8.0); NEUTROPHILS # 10.3 10^3/uL (1.5-8.5); NEUTROPHILS % 81.1 % (36.0-66.0); PLATELET COUNT, AUTOMATED 304 10^3/uL (150-450); WHITE BLOOD COUNT 12.7 10^3/uL (4.0-10.0)
[2022-11-02 06:50] LABS: CALCIUM LEVEL 8.3 MG/DL (8.3-10.6); CREATININE FOR GFR 2.01 MG/DL (0.70-1.30); GLOMERULAR FILTRATION RATE 43.8 (>49); POTASSIUM SERUM 5.1 MMOL/L (3.5-5.1)
[2022-11-02] MEDS: GABAPENTIN 300 MG CAP PO SCH ×3 (08:23→22:27)
[2022-11-02] MEDS: DOCUSATE SODIUM 100MG CAPSULE PO SCH ×2 (08:23→22:27)
[2022-11-02] MEDS: VENLAFAXINE **XR** 75MG CAPSULE PO SCH (08:23)
[2022-11-02] MEDS: INSULIN LISPRO (NovoLOG) PER UNIT SC SCH ×4 (08:23→22:13)
[2022-11-02] MEDS: CARVedilol 6.25 MG TAB PO SCH ×2 (08:24→22:28)
[2022-11-02] MEDS: BACLOFEN 10 MG TAB PO SCH ×2 (08:24→22:27)
[2022-11-02] MEDS: NIFEdipine 30MG XL TAB PO SCH (08:24)
[2022-11-02] MEDS: HEPARIN SOD (PORCINE) 5000UNITS/ML 1ML VIAL/SYRINGE SQ SCH ×2 (08:25→22:30)
[2022-11-02] MEDS: ASPIRIN 81MG CHEW TABLET PO SCH (08:25)
[2022-11-02] MEDS: FLUTICASONE PROP 0.05% NASAL SPRAY 16 GM (FLONASE) NARES SCH (08:31)
[2022-11-02 14:00] VITALS: BP 155/102
[2022-11-02] MEDS: MORPHINE 4 MG/ML 1ML VIAL IV PRN (20:07)
[2022-11-02 22:00] VITALS: BP 152/84
[2022-11-02] MEDS: ATORVASTATIN 20 MG TAB PO SCH (22:27)
[2022-11-02] MEDS: LEVEMIR (INSULIN DETEMIR) 1 UNITS/0.01ML SC SCH (23:07)
[2022-11-03] MEDS: ISOSORBIDE DIN. (ISORDIL) 30 MG TAB PO SCH ×3 (00:47→12:56)
[2022-11-03] MEDS: **hydrALAZINE HCL** 25 MG TAB PO SCH ×3 (00:47→12:47)
[2022-11-03] MEDS: cloNIDine 0.1MG TABLET PO SCH ×2 (03:00→08:15)
[2022-11-03] MEDS: methylPREDNISolone 125MG 2ML VIAL IV SCH (03:44)
[2022-11-03] MEDS: ANEXSIA, NORCO 7.5MG/325MG TABLET(HYDROCODONE/APAP) PO PRN ×2 (05:01→12:46)
[2022-11-03 05:49] LABS: BASO % 0.2 % (0.0-1.0); EOS # 0.2 10^3/uL (0.0-0.5); HEMATOCRIT 27.9 % (42.0-52.0); HEMOGLOBIN 8.7 g/dl (13.5-17.5); LYMPH # 2.1 10^3/uL (1.5-5.0); LYMPH % 17.1 % (24.0-44.0); MEAN CORPUSCULAR HEMOGLOBIN 26.6 pg (27.0-33.0); MEAN CORPUSCULAR HGB CONC 31.2 g/dl (32.0-36.5); MEAN CORPUSCULAR VOLUME 85.3 fl (80.0-96.0); MONO # 0.7 10^3/uL (0.0-0.8); MONO % 6.1 % (2.0-8.0); NEUTROPHILS # 8.9 10^3/uL (1.5-8.5); NEUTROPHILS % 72.6 % (36.0-66.0); PLATELET COUNT, AUTOMATED 344 10^3/uL (150-450); RED BLOOD COUNT 3.27 10^6/uL (4.30-6.10); WHITE BLOOD COUNT 12.2 10^3/uL (4.0-10.0)
[2022-11-03 06:00] VITALS: BP 166/87
[2022-11-03 06:12] LABS: CALCIUM LEVEL 8.4 MG/DL (8.3-10.6); CREATININE FOR GFR 1.64 MG/DL (0.70-1.30); GLOMERULAR FILTRATION RATE 55.4 (>49); POTASSIUM SERUM 4.8 MMOL/L (3.5-5.1)
[2022-11-03] MEDS: HEPARIN SOD (PORCINE) 5000UNITS/ML 1ML VIAL/SYRINGE SQ SCH (08:14)
[2022-11-03] MEDS: INSULIN LISPRO (NovoLOG) PER UNIT SC SCH ×2 (08:14→12:46)
[2022-11-03] MEDS: GABAPENTIN 300 MG CAP PO SCH (08:15)
[2022-11-03] MEDS: ASPIRIN 81MG CHEW TABLET PO SCH (08:15)
[2022-11-03] MEDS: VENLAFAXINE **XR** 75MG CAPSULE PO SCH (08:15)
[2022-11-03] MEDS: DOCUSATE SODIUM 100MG CAPSULE PO SCH (08:15)
[2022-11-03] MEDS: BACLOFEN 10 MG TAB PO SCH (08:15)
[2022-11-03] MEDS: FLUTICASONE PROP 0.05% NASAL SPRAY 16 GM (FLONASE) NARES SCH (08:16)
[2022-11-03] MEDS: CARVedilol 6.25 MG TAB PO SCH (08:16)
[2022-11-03] MEDS: NIFEdipine 30MG XL TAB PO SCH (08:16)
[2022-11-03] MEDS: MORPHINE 4 MG/ML 1ML VIAL IV PRN (08:23)
[2022-11-03] MEDS ORDERED: PRED20TA PO (11:38)
[2022-11-03] MEDS ORDERED: FLUTISP NARES (11:38)
[2022-11-03] MEDS ORDERED: ISOS30TAB PO (11:38)
[2022-11-03] MEDS ORDERED: HYDR25TA PO (11:38)
[2022-11-03 12:47] VITALS: BP 152/93
== END 2022-11-03 14:37 | disposition home or self-care (01) | DRG 554 ==
LOC: EDBD 14:01 → M ED 17:11 → M ED INP 19:46 → ENRESERV 10-30 11:09 → M MSPAV 10-30 13:42
PROVIDERS: ADMIT Internal Medicine; ATTEND Family Medicine
PROC: 0S9C3ZX Drainage of Right Knee Joint, Percutaneous Approach, Diagnostic (ICD-10-PCS; principal; 2022-10-30)
PROC: 0S9D3ZX Drainage of Left Knee Joint, Percutaneous Approach, Diagnostic (ICD-10-PCS; 2022-10-30)
DX: M10.9 Gout, unspecified (principal); M62.82 Rhabdomyolysis; N17.9 Acute kidney failure, unspecified; I16.0 Hypertensive urgency; E11.22 Type 2 diabetes mellitus with diabetic chronic kidney disease; I12.9 Hypertensive chronic kidney disease with stage 1 through stage 4 chronic kidney disease, or unspecified chronic kidney disease; E78.5 Hyperlipidemia, unspecified; N18.30 Chronic kidney disease, stage 3 unspecified; I25.10 Atherosclerotic heart disease of native coronary artery without angina pectoris; F41.9 Anxiety disorder, unspecified; F32.A Depression, unspecified; M16.0 Bilateral primary osteoarthritis of hip; Z86.73 Personal history of transient ischemic attack (TIA), and cerebral infarction without residual deficits; Z20.822 Contact with and (suspected) exposure to COVID-19; Z79.82 Long term (current) use of aspirin; Z79.4 Long term (current) use of insulin; Z79.899 Other long term (current) drug therapy; Z87.891 Personal history of nicotine dependence

== ENCOUNTER 2023-03-09 17:55 | Inpatient (IN) | payer MEDICARE, OTHER ==
[~2023-03-09] VITALS: Ht 175.3 cm; Wt 98.4 kg
[~2023-03-09 17:55] MED LIST changes: +ALLO10TA PO; +BACL10TA2 PO; +CLOP75TA99 PO; +FLUT50SP17 NARES; +GABA600T4 PO; +HYDR25TA PO; +ISOS30TAB PO; +NIFE30TA50 PO; +PRED20TA PO; +STEGLATRO
[2023-03-09 18:55] LABS: BASO # 0.1 10^3/uL (0.0-0.2); BASO % 0.7 % (0.0-1.0); EOS # 0.5 10^3/uL (0.0-0.5); EOS % 7.3 % (0.0-3.0); HEMATOCRIT 34.5 % (42.0-52.0); HEMOGLOBIN 11.2 g/dl (13.5-17.5); LYMPH # 2.5 10^3/uL (1.5-5.0); LYMPH % 33.5 % (24.0-44.0); MEAN CORPUSCULAR HEMOGLOBIN 27.7 pg (27.0-33.0); MEAN CORPUSCULAR HGB CONC 32.5 g/dl (32.0-36.5); MEAN CORPUSCULAR VOLUME 85.2 fl (80.0-96.0); MONO # 0.8 10^3/uL (0.0-0.8); NEUTROPHILS # 3.5 10^3/uL (1.5-8.5); NEUTROPHILS % 47.1 % (36.0-66.0); PLATELET COUNT, AUTOMATED 290 10^3/uL (150-450); RED BLOOD COUNT 4.05 10^6/uL (4.30-6.10); WHITE BLOOD COUNT 7.4 10^3/uL (4.0-10.0)
[2023-03-09 19:20] LABS: CALCIUM LEVEL 8.7 MG/DL (8.3-10.6); CREATININE FOR GFR 3.72 MG/DL (0.70-1.30); GLOMERULAR FILTRATION RATE 21.5 (>49); POTASSIUM SERUM 5.6 MMOL/L (3.5-5.1)
[2023-03-09 19:21] LABS: MB/CK RELATIVE INDEX 0.47 (< OR =4)
[2023-03-09] MEDS ORDERED: IPRATROPIUM 0.5MG/ALBUTEROL 2.5MG INH SOL UD 3ML (DUONEB) NEB ONE ×2 (20:50)
[2023-03-09] MEDS: INSULIN LISPRO (NovoLOG) PER UNIT SC SCH (21:00)
[2023-03-09 22:15] LABS: CK-MB VALUE MASS 4.6 NG/ML (<3.6); MB/CK RELATIVE INDEX 0.48 (< OR =4)
[2023-03-09] MEDS ORDERED: NS 1,000 ML IV ONE (22:25)
[2023-03-09] MEDS ORDERED: HYDR-3910 PO (23:05)
[2023-03-09] MEDS ORDERED: SITA50TAB PO (23:05)
[2023-03-09] MEDS ORDERED: ISOS30TAB PO (23:05)
[2023-03-09] MEDS ORDERED: HOME MED LIST COMPLETE! XX SCH (23:05)
[2023-03-09] MEDS ORDERED: ACETAMINOPHEN TAB 650MG DOSE (2X325MG) PO PRN (23:40)
[2023-03-09] MEDS ORDERED: GLUCAGON INJ 1MG VIAL SC PRN (23:45)
[2023-03-09] MEDS ORDERED: DEXTROSE 50% 50ML SYRINGE IV PRN (23:45)
[2023-03-09] MEDS ORDERED: GLUCOSE 4GM CHEW TABLET PO PRN (23:45)
[2023-03-10] VITALS (17 sets, daily range): BP systolic 125–210; BP diastolic 70–110; O2SAT 97–100
[2023-03-10] MEDS: ATORVASTATIN 20 MG TAB PO SCH ×2 (00:09→20:36)
[2023-03-10] MEDS: GABAPENTIN 300 MG CAP PO SCH ×3 (00:09→17:13)
[2023-03-10] MEDS: CARVedilol 3.125 MG TAB PO SCH ×3 (00:10→18:27)
[2023-03-10] MEDS: BACLOFEN 10 MG TAB PO SCH ×2 (00:10→08:47)
[2023-03-10] MEDS: LEVEMIR (INSULIN DETEMIR) 1 UNITS/0.01ML SC SCH ×2 (00:10→20:35)
[2023-03-10] MEDS: ISOSORBIDE DIN. (ISORDIL) 30 MG TAB PO SCH ×4 (00:55→17:12)
[2023-03-10] MEDS: **hydrALAZINE HCL** 25 MG TAB PO SCH ×4 (00:56→17:13)
[2023-03-10] MEDS ORDERED: NS 1,000 ML IV SCH (01:00)
[2023-03-10 02:10] LABS: ABG BASE EXCESS -9.2 (-2.0-2.0); ABG HCO3 15.4 MMOL/L (22.0-26.0); ABG O2 SATURATION 95.6 % (95.0-99.0); ABG PARTIAL PRESSURE CO2 29.3 mmHg (35.0-45.0); ABG PARTIAL PRESSURE O2 85.6 mmHg (75.0-100.0); ABG TOTAL CO2 16.3 MMOL/L (23.0-31.0); ABG pH (ARTERIAL) 7.339 UNITS (7.350-7.450)
[2023-03-10] MEDS ORDERED: ANEXSIA, NORCO 7.5MG/325MG TABLET(HYDROCODONE/APAP) PO PRN (02:25)
[2023-03-10] MEDS ORDERED: IPRATROPIUM 0.5MG/ALBUTEROL 2.5MG INH SOL UD 3ML (DUONEB) NEB PRN (02:35)
[2023-03-10] MEDS ORDERED: guaiFENesin ER 600 MG TAB PO PRN (03:05)
[2023-03-10] MEDS ORDERED: FLUTICASONE PROP 0.05% NASAL SPRAY 16 GM (FLONASE) NARES PRN (03:30)
[2023-03-10] MEDS: HEPARIN SOD (PORCINE) 5000UNITS/ML 1ML VIAL/SYRINGE SQ SCH ×3 (06:08→21:33)
[2023-03-10 06:21] LABS: HEMATOCRIT 29.9 % (42.0-52.0); HEMOGLOBIN 9.5 g/dl (13.5-17.5)
[2023-03-10 06:59] LABS: BILIRUBIN,TOTAL 0.2 MG/DL (0.3-1.2); CALCIUM LEVEL 8.3 MG/DL (8.3-10.6); FERRITIN 80.5 NG/ML (10.5-307.3); FOLATE 9.11 NG/ML (>5.4); GLOMERULAR FILTRATION RATE 27.6 (>49); PERCENT SATURATION 11.9 % (19.7-50.0); PHOSPHORUS LEVEL 4.8 MG/DL (2.4-5.1); POTASSIUM SERUM 5.3 MMOL/L (3.5-5.1); TOTAL PROTEIN 5.8 G/DL (5.7-8.2)
[2023-03-10 07:46] LABS: VENOUS BASE EXCESS -7.4 (-2.0-2.0); VENOUS HCO3 17.6 MMOL/L (23.0-27.0); VENOUS PARTIAL PRESSURE CO2 33.8 mmHg (38.0-50.0); VENOUS PH 7.335 UNITS (7.330-7.430); VENOUS STANDARD HCO3 18.5 MMOL/L; VENOUS TOTAL CO2 18.7 MMOL/L (24.0-28.0)
[2023-03-10] MEDS ORDERED: SOD POLYSTYRENE SULFONATE SUSP 15GM 60ML UD PO ONE (08:00)
[2023-03-10] MEDS: INSULIN LISPRO (NovoLOG) PER UNIT SC SCH ×4 (08:45→20:36)
[2023-03-10] MEDS: ASPIRIN 81MG CHEW TABLET PO SCH (08:47)
[2023-03-10] MEDS: CLOPIDOGREL 75 MG TAB PO SCH (08:47)
[2023-03-10] MEDS: NIFEdipine 30MG XL TAB PO SCH (08:47)
[2023-03-10] MEDS: VENLAFAXINE **XR** 75MG CAPSULE PO SCH (08:47)
[2023-03-10] MEDS ORDERED: ENOXAPARIN 30MG/0.3ML SYRINGE (J1650 PER 10MG) SC SCH (09:00)
[2023-03-10] MEDS ORDERED: FLUTICASONE PROP 0.05% NASAL SPRAY 16 GM (FLONASE) NARES SCH (09:00)
[2023-03-10] MEDS ORDERED: SENNA 8.6 MG TAB (SENOKOT) PO PRN (11:15)
[2023-03-10] MEDS ORDERED: SENOKOT S TAB PO PRN (11:30)
[2023-03-10] MEDS ORDERED: MIRALAX *UNIT DOSE* 17GM PACKET PO PRN (11:30)
[2023-03-10] MEDS ORDERED: MOM 30ML SUSPENSION UDC PO PRN (11:30)
[2023-03-10] MEDS ORDERED: methylPREDNISolone 40MG 1ML VIAL IV ONE (12:45)
[2023-03-10] MEDS: PANTOPRAZOLE 20 MG TAB PO SCH (12:45)
[2023-03-10 13:11] LABS: APPEARANCE, URINE CLEAR (CLEAR); BACTERIA, URINE AUTO NEGATIVE (NEGATIVE); BILIRUBIN, URINE AUTO NEGATIVE (NEGATIVE); BLOOD, URINE BLOOD NEGATIVE (NEGATIVE); COLOR, URINE YELLOW (YELLOW); GLUCOSE, URINE (UA) AUTO 1+ mg/dL (NEGATIVE); KETONE, URINE AUTO NEGATIVE (NEGATIVE); LEUKOCYTE ESTERASE, URINE AUTO TRACE (NEGATIVE); NITRITE, URINE AUTO NEGATIVE (NEGATIVE); PROTEIN, URINE AUTO 1+ mg/dL (NEGATIVE); RBC, URINE AUTO 1 /HPF (0-3); SPECIFIC GRAVITY URINE AUTO 1.014 (1.002-1.035); SQUAMOUS EPITHELIAL CELL UR AU 0 /HPF (0-6); UROBILINOGEN, URINE AUTO 0.2 mg/dL (0.0-2.0); WBC, URINE AUTO 0 /HPF (0-3)
[2023-03-10 13:43] LABS: CREATININE,RANDOM URINE 161.4 MG/DL
[2023-03-10] MEDS: IPRATROPIUM 0.5MG/ALBUTEROL 2.5MG INH SOL UD 3ML (DUONEB) NEB SCH ×2 (13:49→19:47)
[2023-03-10] MEDS: NS 1,000 ML IV SCH (13:59)
[2023-03-10] MEDS: MIRALAX *UNIT DOSE* 17GM PACKET PO SCH (13:59)
[2023-03-10] MEDS: FERROUS SULFATE 325MG TAB PO SCH ×2 (14:05→20:36)
[2023-03-10] MEDS: AZITHROMYCIN 250MG TABLET PO SCH (14:05)
[2023-03-10] MEDS: hydrALAZINE 20MG/ML 1ML VIAL IV PRN (15:51)
[2023-03-10] MEDS: NORCO, ANEXSIA 5/325MG TABLET (HYDROcodone/ACETAMINOPHEN) PO PRN (17:13)
[2023-03-10] MEDS: GABAPENTIN 100 MG CAP PO SCH (20:36)
[2023-03-10] MEDS ORDERED: LABETALOL 100MG/20ML VIAL IV STA (23:26)
[2023-03-11] VITALS (28 sets, daily range): BP systolic 140–212; BP diastolic 70–98; O2SAT 95–100
[2023-03-11] MEDS: IPRATROPIUM 0.5MG/ALBUTEROL 2.5MG INH SOL UD 3ML (DUONEB) NEB SCH ×4 (00:56→19:19)
[2023-03-11] MEDS: **hydrALAZINE HCL** 25 MG TAB PO SCH ×4 (01:03→17:33)
[2023-03-11] MEDS: ISOSORBIDE DIN. (ISORDIL) 30 MG TAB PO SCH ×4 (01:16→17:33)
[2023-03-11] MEDS: HEPARIN SOD (PORCINE) 5000UNITS/ML 1ML VIAL/SYRINGE SQ SCH ×3 (05:11→21:25)
[2023-03-11] MEDS ORDERED: MORPHINE 4 MG/ML 1ML VIAL IV ONE (06:00)
[2023-03-11] MEDS: NS 1,000 ML IV SCH (06:04)
[2023-03-11] MEDS: NORCO, ANEXSIA 5/325MG TABLET (HYDROcodone/ACETAMINOPHEN) PO PRN (06:05)
[2023-03-11 06:36] LABS: BASO % 0.1 % (0.0-1.0); HEMATOCRIT 30.5 % (42.0-52.0); HEMOGLOBIN 9.8 g/dl (13.5-17.5); LYMPH % 13.1 % (24.0-44.0); MEAN CORPUSCULAR HEMOGLOBIN 27.3 pg (27.0-33.0); MEAN CORPUSCULAR HGB CONC 32.1 g/dl (32.0-36.5); MONO # 0.2 10^3/uL (0.0-0.8); NEUTROPHILS # 6.6 10^3/uL (1.5-8.5); NEUTROPHILS % 83.3 % (36.0-66.0); PLATELET COUNT, AUTOMATED 284 10^3/uL (150-450); RED BLOOD COUNT 3.59 10^6/uL (4.30-6.10); WHITE BLOOD COUNT 7.9 10^3/uL (4.0-10.0)
[2023-03-11 06:54] LABS: CALCIUM LEVEL 8.2 MG/DL (8.3-10.6); CREATININE FOR GFR 1.99 MG/DL (0.70-1.30); GLOMERULAR FILTRATION RATE 44.3 (>49); MAGNESIUM LEVEL 1.4 MG/DL (1.8-2.4); POTASSIUM SERUM 5.3 MMOL/L (3.5-5.1)
[2023-03-11] MEDS: hydrALAZINE 20MG/ML 1ML VIAL IV PRN (07:16)
[2023-03-11] MEDS ORDERED: ANEXSIA, NORCO 7.5MG/325MG TABLET(HYDROCODONE/APAP) PO PRN (07:40)
[2023-03-11] MEDS ORDERED: MAG SULF 1GM/100ML (MAG RUN) 1 GM in IV 1 EA IV ONE ×2 (08:00→18:30)
[2023-03-11] MEDS: INSULIN LISPRO (NovoLOG) PER UNIT SC SCH ×4 (08:38→21:25)
[2023-03-11] MEDS: ASPIRIN 81MG CHEW TABLET PO SCH (08:39)
[2023-03-11] MEDS: FERROUS SULFATE 325MG TAB PO SCH ×2 (08:39→21:24)
[2023-03-11] MEDS: VENLAFAXINE **XR** 75MG CAPSULE PO SCH (08:39)
[2023-03-11] MEDS: MIRALAX *UNIT DOSE* 17GM PACKET PO SCH (08:39)
[2023-03-11] MEDS: CLOPIDOGREL 75 MG TAB PO SCH (08:39)
[2023-03-11] MEDS: GABAPENTIN 100 MG CAP PO SCH ×3 (08:39→21:24)
[2023-03-11] MEDS: AZITHROMYCIN 250MG TABLET PO SCH (08:39)
[2023-03-11] MEDS: CARVedilol 12.5 MG TAB PO SCH ×2 (08:39→21:24)
[2023-03-11] MEDS: PANTOPRAZOLE 20 MG TAB PO SCH (08:39)
[2023-03-11] MEDS: NIFEdipine 30MG XL TAB PO SCH (08:39)
[2023-03-11] MEDS ORDERED: METAMUCIL (PSYLLIUM) PACKET PO SCH (09:00)
[2023-03-11] MEDS: SODIUM BICARBONATE 100 MEQ in STERILE WATER LITER BAG 1,000 ML IV SCH ×2 (10:22→20:10)
[2023-03-11] MEDS ORDERED: FUROSEMIDE 100MG/10ML VIAL IV ONE (11:15)
[2023-03-11] MEDS ORDERED: methylPREDNISolone 40MG 1ML VIAL IV ONE (11:35)
[2023-03-11] MEDS ORDERED: PATIROMER SORBITEX CALCIUM 8.4 GM POWDER PACKET (VELTASSA) PO ONE (12:00)
[2023-03-11] MEDS: ATORVASTATIN 20 MG TAB PO SCH (21:23)
[2023-03-11] MEDS: LEVEMIR (INSULIN DETEMIR) 1 UNITS/0.01ML SC SCH (21:24)
[2023-03-12] VITALS (21 sets, daily range): BP systolic 146–168; BP diastolic 74–94; O2SAT 95–99
[2023-03-12] MEDS: ISOSORBIDE DIN. (ISORDIL) 30 MG TAB PO SCH ×3 (00:38→13:25)
[2023-03-12] MEDS: **hydrALAZINE HCL** 25 MG TAB PO SCH ×3 (01:12→13:26)
[2023-03-12] MEDS: IPRATROPIUM 0.5MG/ALBUTEROL 2.5MG INH SOL UD 3ML (DUONEB) NEB SCH ×3 (01:55→13:42)
[2023-03-12] MEDS ORDERED: ANEXSIA, NORCO 7.5MG/325MG TABLET(HYDROCODONE/APAP) PO PRN ×2 (02:20→05:45)
[2023-03-12 05:59] LABS: BASO % 0.1 % (0.0-1.0); EOS % 0.1 % (0.0-3.0); HEMATOCRIT 29.3 % (42.0-52.0); HEMOGLOBIN 9.4 g/dl (13.5-17.5); LYMPH # 1.7 10^3/uL (1.5-5.0); LYMPH % 16.9 % (24.0-44.0); MEAN CORPUSCULAR HEMOGLOBIN 26.7 pg (27.0-33.0); MEAN CORPUSCULAR HGB CONC 32.1 g/dl (32.0-36.5); MEAN CORPUSCULAR VOLUME 83.2 fl (80.0-96.0); MONO # 0.8 10^3/uL (0.0-0.8); MONO % 8.1 % (2.0-8.0); NEUTROPHILS # 7.5 10^3/uL (1.5-8.5); NEUTROPHILS % 74.2 % (36.0-66.0); PLATELET COUNT, AUTOMATED 273 10^3/uL (150-450); RED BLOOD COUNT 3.52 10^6/uL (4.30-6.10); WHITE BLOOD COUNT 10.1 10^3/uL (4.0-10.0)
[2023-03-12] MEDS: HEPARIN SOD (PORCINE) 5000UNITS/ML 1ML VIAL/SYRINGE SQ SCH ×2 (06:10→13:48)
[2023-03-12 06:23] LABS: CALCIUM LEVEL 8.4 MG/DL (8.3-10.6); CREATININE FOR GFR 1.84 MG/DL (0.70-1.30); GLOMERULAR FILTRATION RATE 48.5 (>49); MAGNESIUM LEVEL 1.7 MG/DL (1.8-2.4); POTASSIUM SERUM 4.9 MMOL/L (3.5-5.1)
[2023-03-12] MEDS: SODIUM BICARBONATE 100 MEQ in STERILE WATER LITER BAG 1,000 ML IV SCH (06:54)
[2023-03-12] MEDS ORDERED: MAG SULF 1GM/100ML (MAG RUN) 1 GM in IV 1 EA IV ONE (08:00)
[2023-03-12] MEDS ORDERED: BISACODYL 5MG TAB PO PRN (08:10)
[2023-03-12] MEDS: INSULIN LISPRO (NovoLOG) PER UNIT SC SCH ×3 (09:12→17:30)
[2023-03-12] MEDS: MIRALAX *UNIT DOSE* 17GM PACKET PO SCH (09:13)
[2023-03-12] MEDS: PANTOPRAZOLE 20 MG TAB PO SCH (09:13)
[2023-03-12] MEDS: FERROUS SULFATE 325MG TAB PO SCH (09:13)
[2023-03-12] MEDS: CARVedilol 12.5 MG TAB PO SCH (09:13)
[2023-03-12] MEDS: AZITHROMYCIN 250MG TABLET PO SCH (09:14)
[2023-03-12] MEDS: NIFEdipine 30MG XL TAB PO SCH (09:14)
[2023-03-12] MEDS: GABAPENTIN 100 MG CAP PO SCH ×2 (09:14→17:11)
[2023-03-12] MEDS: ASPIRIN 81MG CHEW TABLET PO SCH (09:15)
[2023-03-12] MEDS: VENLAFAXINE **XR** 75MG CAPSULE PO SCH (09:15)
[2023-03-12] MEDS: CLOPIDOGREL 75 MG TAB PO SCH (09:15)
[2023-03-12] MEDS ORDERED: FUROSEMIDE 40MG/4ML VIAL IV ONE (11:00)
[2023-03-12] MEDS ORDERED: PRED10TA2 PO (15:05)
[2023-03-12] MEDS ORDERED: GABA-1171 PO (15:05)
[2023-03-12] MEDS ORDERED: CARV12.5 PO (15:05)
[2023-03-12] MEDS ORDERED: VENTAER INH (15:05)
[2023-03-12] MEDS ORDERED: AZIT-12 PO (15:05)
[2023-03-12] MEDS ORDERED: FERR1TAB8 PO (15:52)
== END 2023-03-12 18:08 | disposition home health service (06) | DRG 683 ==
LOC: M ED 17:55 → M ED INP 17:56 → ENRESERV 03-10 00:08 → M MSPAV 03-10 00:45 → OBSVTOIN 03-10 02:37 → M PCU 03-10 15:31
PROVIDERS: ADMIT Internal Medicine; ATTEND Internal Medicine
DX: N17.9 Acute kidney failure, unspecified (principal); E66.2 Morbid (severe) obesity with alveolar hypoventilation; M62.82 Rhabdomyolysis; I69.351 Hemiplegia and hemiparesis following cerebral infarction affecting right dominant side; I50.32 Chronic diastolic (congestive) heart failure; E87.20 Acidosis, unspecified; I13.0 Hypertensive heart and chronic kidney disease with heart failure and stage 1 through stage 4 chronic kidney disease, or unspecified chronic kidney disease; J44.0 Chronic obstructive pulmonary disease with (acute) lower respiratory infection; N18.30 Chronic kidney disease, stage 3 unspecified; J45.909 Unspecified asthma, uncomplicated; I27.20 Pulmonary hypertension, unspecified; M06.9 Rheumatoid arthritis, unspecified; D50.9 Iron deficiency anemia, unspecified; I25.2 Old myocardial infarction; I25.10 Atherosclerotic heart disease of native coronary artery without angina pectoris; E78.5 Hyperlipidemia, unspecified; K21.9 Gastro-esophageal reflux disease without esophagitis; G89.29 Other chronic pain; M54.9 Dorsalgia, unspecified; M10.9 Gout, unspecified; Z79.82 Long term (current) use of aspirin; E87.5 Hyperkalemia; G47.10 Hypersomnia, unspecified; K59.00 Constipation, unspecified; J20.9 Acute bronchitis, unspecified; I69.320 Aphasia following cerebral infarction; E11.65 Type 2 diabetes mellitus with hyperglycemia; F41.9 Anxiety disorder, unspecified; F43.10 Post-traumatic stress disorder, unspecified; E11.43 Type 2 diabetes mellitus with diabetic autonomic (poly)neuropathy; Z86.16 Personal history of COVID-19; Z79.899 Other long term (current) drug therapy; E11.22 Type 2 diabetes mellitus with diabetic chronic kidney disease; D63.1 Anemia in chronic kidney disease; F12.90 Cannabis use, unspecified, uncomplicated

== ENCOUNTER 2023-03-16 21:25 | Inpatient (IN) | payer MEDICARE, OTHER ==
[~2023-03-16] VITALS: Ht 175.3 cm; Wt 96.9 kg
[~2023-03-16 21:25] MED LIST changes: +AZIT-12 PO; +CARV12.5 PO; +FERR1TAB8 PO; +GABA-1171 PO; +HYDR-3910 PO; +PRED10TA2 PO; +SITA50TAB PO; +VENTAER INH
[2023-03-16 22:06] LABS: BASO # 0.1 10^3/uL (0.0-0.2); BASO % 0.5 % (0.0-1.0); EOS # 0.8 10^3/uL (0.0-0.5); EOS % 6.3 % (0.0-3.0); HEMATOCRIT 29.6 % (42.0-52.0); HEMOGLOBIN 9.5 g/dl (13.5-17.5); LYMPH # 2.5 10^3/uL (1.5-5.0); MEAN CORPUSCULAR HEMOGLOBIN 27.4 pg (27.0-33.0); MEAN CORPUSCULAR HGB CONC 32.1 g/dl (32.0-36.5); MEAN CORPUSCULAR VOLUME 85.3 fl (80.0-96.0); MONO # 1.5 10^3/uL (0.0-0.8); MONO % 12.8 % (2.0-8.0); NEUTROPHILS # 7.1 10^3/uL (1.5-8.5); NEUTROPHILS % 58.7 % (36.0-66.0); PLATELET COUNT, AUTOMATED 286 10^3/uL (150-450); RED BLOOD COUNT 3.47 10^6/uL (4.30-6.10)
[2023-03-16 22:19] LABS: INR 0.91; PROTHROMBIN TIME 12.4 SECONDS (12.5-14.5)
[2023-03-16 22:29] LABS: MB/CK RELATIVE INDEX 0.83 (< OR =4)
[2023-03-16 22:33] LABS: ALBUMIN 3.2 G/DL (3.2-5.2); BILIRUBIN,DIRECT 0.1 MG/DL (<0.4); BILIRUBIN,TOTAL 0.3 MG/DL (0.3-1.2); CALCIUM LEVEL 8.5 MG/DL (8.3-10.6); CREATININE FOR GFR 3.54 MG/DL (0.70-1.30); GLOMERULAR FILTRATION RATE 22.8 (>49); POTASSIUM SERUM 5.8 MMOL/L (3.5-5.1); TOTAL PROTEIN 6.5 G/DL (5.7-8.2)
[2023-03-16] MEDS ORDERED: IPRATROPIUM 0.5MG/ALBUTEROL 2.5MG INH SOL UD 3ML (DUONEB) NEB ONE (22:55)
[2023-03-16] MEDS ORDERED: HumuLIN R (REGULAR) INSULIN (NovoLIN R) **100U/ML** PER UNIT IV ONE (22:55)
[2023-03-17] VITALS (7 sets, daily range): BP systolic 143–176; BP diastolic 79–92; TEMP 97.3–98.7; O2SAT 92–98
[2023-03-17] MEDS ORDERED: NS 1,000 ML IV ONE (00:20)
[2023-03-17] MEDS ORDERED: ANEXSIA, NORCO 7.5MG/325MG TABLET(HYDROCODONE/APAP) PO ONE (02:10)
[2023-03-17] MEDS ORDERED: CARV12.5 PO (02:23)
[2023-03-17] MEDS ORDERED: GABA-1171 PO (02:23)
[2023-03-17] MEDS ORDERED: PRED10TA2 PO (02:23)
[2023-03-17] MEDS ORDERED: FERR325T18 PO (02:23)
[2023-03-17] MEDS ORDERED: AZIT-10 PO (02:23)
[2023-03-17] MEDS ORDERED: HOME MED LIST COMPLETE! XX SCH (02:25)
[2023-03-17] MEDS ORDERED: NIFEdipine 10 MG CAP PO ONE (02:30)
[2023-03-17] MEDS ORDERED: CARVedilol 12.5 MG TAB PO ONE (02:30)
[2023-03-17 02:34] LABS: RSV AMPLIFICATION NEGATIVE (NEGATIVE)
[2023-03-17] MEDS ORDERED: OXYC7.5T3 PO (02:45)
[2023-03-17 02:59] LABS: CALCIUM LEVEL 8.4 MG/DL (8.3-10.6); CREATININE FOR GFR 3.44 MG/DL (0.70-1.30); GLOMERULAR FILTRATION RATE 23.6 (>49); POTASSIUM SERUM 5.2 MMOL/L (3.5-5.1)
[2023-03-17] MEDS ORDERED: GLUCAGON INJ 1MG VIAL SC PRN (03:05)
[2023-03-17] MEDS ORDERED: INSULIN LISPRO (NovoLOG) PER UNIT SC ONE (03:05)
[2023-03-17] MEDS ORDERED: DEXTROSE 50% 50ML SYRINGE IV PRN (03:05)
[2023-03-17] MEDS ORDERED: LR 1,000 ML IV SCH (03:05)
[2023-03-17] MEDS ORDERED: predniSONE 20 MG TAB PO ONE (03:05)
[2023-03-17] MEDS ORDERED: IPRATROPIUM 0.5MG/ALBUTEROL 2.5MG INH SOL UD 3ML (DUONEB) NEB PRN (03:05)
[2023-03-17] MEDS ORDERED: GLUCOSE 4GM CHEW TABLET PO PRN (03:05)
[2023-03-17] MEDS ORDERED: PILL CUTTER 1 EACH XX PRN (04:10)
[2023-03-17] MEDS: methylPREDNISolone 40MG 1ML VIAL IV SCH ×3 (04:28→20:40)
[2023-03-17 04:53] LABS: APPEARANCE, URINE MANUAL CLEAR (CLEAR); COLOR, URINE MANUAL YELLOW (YELLOW)
[2023-03-17 04:54] LABS: PROTEIN, URINE MANUAL 1+ mg/dL (NEGATIVE)
[2023-03-17 04:55] LABS: BILIRUBIN, URINE MANUAL NEGATIVE (NEGATIVE); BLOOD URINE MANUAL NEGATIVE (NEGATIVE); GLUCOSE, URINE (UA) MANUAL 4+(1000 MG/DL) mg/dL (NEGATIVE); KETONE, URINE MANUAL NEGATIVE (NEGATIVE); LEUKOCYTE ESTERASE, URINE MAN NEGATIVE (NEGATIVE); NITRITE, URINE MANUAL NEGATIVE (NEGATIVE); OSMOLALITY URINE 452 MOSM/KG (50-1400); UROBILINOGEN, URINE MANUAL NORMAL (NORMAL)
[2023-03-17 05:03] LABS: RBC, URINE 0-1 /hpf (0-3); SQUAMOUS EPITHELIAL CELL URINE SMALL AMOUNT /hpf (SMALL AMT); WBC, URINE 0-1 /hpf (0-3)
[2023-03-17 05:04] LABS: AMORPHOUS SEDIMENT, URINE SMALL AMOUNT (NEGATIVE); BACTERIA, URINE SMALL AMOUNT; HYALINE CAST, URINE NONE SEEN /lpf (0-1); MUCUS, URINE SMALL AMOUNT (NEGATIVE)
[2023-03-17 05:14] LABS: SODIUM,RANDOM URINE 41 MMOL/L
[2023-03-17 05:18] LABS: TOTAL PROTEIN,RANDOM URINE 56.1 MG/DL (0.0-14.0)
[2023-03-17 05:23] LABS: CREATININE,RANDOM URINE 136.6 MG/DL
[2023-03-17] MEDS: **hydrALAZINE HCL** 25 MG TAB PO SCH ×3 (05:56→17:31)
[2023-03-17] MEDS: ISOSORBIDE DIN. (ISORDIL) 30 MG TAB PO SCH ×3 (05:57→17:30)
[2023-03-17] MEDS: PIPERACILLIN/TAZOBACTAM SOD 3.375 GM in D5W MINI-BAG PLUS 50 ML IV SCH ×4 (05:57→22:15)
[2023-03-17] MEDS: HEPARIN SOD (PORCINE) 5000UNITS/ML 1ML VIAL/SYRINGE SC SCH ×3 (05:59→22:15)
[2023-03-17 06:20] LABS: VENOUS BASE EXCESS -4.4 (-2.0-2.0); VENOUS HCO3 21.1 MMOL/L (23.0-27.0); VENOUS O2 SATURATION 98.7 % (60.0-80.0); VENOUS PARTIAL PRESSURE CO2 40.5 mmHg (38.0-50.0); VENOUS PARTIAL PRESSURE O2 163.4 mmHg (30.0-50.0); VENOUS PH 7.335 UNITS (7.330-7.430); VENOUS STANDARD HCO3 20.8 MMOL/L; VENOUS TOTAL CO2 22.4 MMOL/L (24.0-28.0)
[2023-03-17 06:22] LABS: HEMATOCRIT 31.3 % (42.0-52.0); HEMOGLOBIN 10.2 g/dl (13.5-17.5); MEAN CORPUSCULAR HEMOGLOBIN 27.3 pg (27.0-33.0); MEAN CORPUSCULAR HGB CONC 32.6 g/dl (32.0-36.5); MEAN CORPUSCULAR VOLUME 83.9 fl (80.0-96.0); PLATELET COUNT, AUTOMATED 291 10^3/uL (150-450); RED BLOOD COUNT 3.73 10^6/uL (4.30-6.10); WHITE BLOOD COUNT 10.6 10^3/uL (4.0-10.0)
[2023-03-17 07:09] LABS: ALBUMIN 3.5 G/DL (3.2-5.2); BILIRUBIN,TOTAL 0.3 MG/DL (0.3-1.2); CALCIUM LEVEL 8.8 MG/DL (8.3-10.6); CREATININE FOR GFR 3.11 MG/DL (0.70-1.30); GLOMERULAR FILTRATION RATE 26.5 (>49); MAGNESIUM LEVEL 1.8 MG/DL (1.8-2.4); POTASSIUM SERUM 4.7 MMOL/L (3.5-5.1)
[2023-03-17] MEDS: IPRATROPIUM 0.5MG/ALBUTEROL 2.5MG INH SOL UD 3ML (DUONEB) NEB SCH ×3 (07:27→19:11)
[2023-03-17] MEDS: oxyCODONE 5MG TAB PO PRN ×3 (08:30→20:42)
[2023-03-17] MEDS: FLUTICASONE PROP 0.05% NASAL SPRAY 16 GM (FLONASE) NARES SCH (08:30)
[2023-03-17] MEDS: VENLAFAXINE **XR** 75MG CAPSULE PO SCH (08:31)
[2023-03-17] MEDS: ASPIRIN 81MG CHEW TABLET PO SCH (08:31)
[2023-03-17] MEDS: CLOPIDOGREL 75 MG TAB PO SCH (08:31)
[2023-03-17] MEDS: INSULIN LISPRO (NovoLOG) PER UNIT SC SCH ×4 (08:31→20:41)
[2023-03-17] MEDS: GABAPENTIN 100 MG CAP PO SCH ×3 (08:31→20:41)
[2023-03-17] MEDS: FERROUS SULFATE 325MG TAB PO SCH ×2 (08:31→20:41)
[2023-03-17] MEDS: CARVedilol 12.5 MG TAB PO SCH ×2 (08:32→20:41)
[2023-03-17] MEDS: NIFEdipine 30MG XL TAB PO SCH (08:32)
[2023-03-17 08:49] LABS: HEMOGLOBIN A1c 8.3 % (4.0-6.0)
[2023-03-17] MEDS ORDERED: predniSONE 20 MG TAB PO SCH (09:00)
[2023-03-17] MEDS ORDERED: guaiFENesin ER 600 MG TAB PO SCH (09:00)
[2023-03-17] MEDS: SENOKOT S TAB PO SCH ×2 (09:59→20:41)
[2023-03-17] MEDS: guaiFENesin 200 MG TAB PO SCH ×2 (11:53→17:30)
[2023-03-17] MEDS: LEVEMIR (INSULIN DETEMIR) 1 UNITS/0.01ML SC SCH (20:40)
[2023-03-17] MEDS: ATORVASTATIN 20 MG TAB PO SCH (20:41)
[2023-03-18] VITALS (9 sets, daily range): BP systolic 156–190; BP diastolic 80–102; TEMP 97.3–97.9; O2SAT 95–100
[2023-03-18] MEDS: guaiFENesin 200 MG TAB PO SCH ×5 (00:06→23:44)
[2023-03-18] MEDS: ISOSORBIDE DIN. (ISORDIL) 30 MG TAB PO SCH ×5 (00:06→23:44)
[2023-03-18] MEDS: **hydrALAZINE HCL** 25 MG TAB PO SCH ×3 (00:06→10:45)
[2023-03-18] MEDS: IPRATROPIUM 0.5MG/ALBUTEROL 2.5MG INH SOL UD 3ML (DUONEB) NEB SCH ×4 (01:10→19:50)
[2023-03-18] MEDS: PIPERACILLIN/TAZOBACTAM SOD 3.375 GM in D5W MINI-BAG PLUS 50 ML IV SCH ×4 (04:06→21:19)
[2023-03-18] MEDS: methylPREDNISolone 40MG 1ML VIAL IV SCH ×3 (04:06→20:55)
[2023-03-18] MEDS: oxyCODONE 5MG TAB PO PRN ×4 (04:06→23:46)
[2023-03-18] MEDS: HEPARIN SOD (PORCINE) 5000UNITS/ML 1ML VIAL/SYRINGE SC SCH ×3 (05:03→20:57)
[2023-03-18 07:46] LABS: BASO % 0.1 % (0.0-1.0); HEMATOCRIT 30.4 % (42.0-52.0); HEMOGLOBIN 9.8 g/dl (13.5-17.5); LYMPH % 8.4 % (24.0-44.0); MEAN CORPUSCULAR HEMOGLOBIN 27.1 pg (27.0-33.0); MEAN CORPUSCULAR HGB CONC 32.2 g/dl (32.0-36.5); MEAN CORPUSCULAR VOLUME 84.2 fl (80.0-96.0); MONO # 0.4 10^3/uL (0.0-0.8); MONO % 3.4 % (2.0-8.0); NEUTROPHILS # 10.7 10^3/uL (1.5-8.5); NEUTROPHILS % 87.3 % (36.0-66.0); PLATELET COUNT, AUTOMATED 336 10^3/uL (150-450); RED BLOOD COUNT 3.61 10^6/uL (4.30-6.10); WHITE BLOOD COUNT 12.2 10^3/uL (4.0-10.0)
[2023-03-18 08:21] LABS: CALCIUM LEVEL 9.2 MG/DL (8.3-10.6); CREATININE FOR GFR 2.77 MG/DL (0.70-1.30); GLOMERULAR FILTRATION RATE 30.2 (>49); POTASSIUM SERUM 5.8 MMOL/L (3.5-5.1)
[2023-03-18] MEDS: FERROUS SULFATE 325MG TAB PO SCH ×2 (08:53→20:56)
[2023-03-18] MEDS: VENLAFAXINE **XR** 75MG CAPSULE PO SCH (08:53)
[2023-03-18] MEDS: ASPIRIN 81MG CHEW TABLET PO SCH (08:53)
[2023-03-18] MEDS: SENOKOT S TAB PO SCH ×2 (08:53→21:00)
[2023-03-18] MEDS: GABAPENTIN 100 MG CAP PO SCH ×3 (08:53→20:56)
[2023-03-18] MEDS: INSULIN LISPRO (NovoLOG) PER UNIT SC SCH ×4 (08:53→20:55)
[2023-03-18] MEDS: CLOPIDOGREL 75 MG TAB PO SCH (08:53)
[2023-03-18] MEDS: FLUTICASONE PROP 0.05% NASAL SPRAY 16 GM (FLONASE) NARES SCH (08:54)
[2023-03-18] MEDS: CARVedilol 12.5 MG TAB PO SCH ×2 (08:54→20:56)
[2023-03-18] MEDS: NIFEdipine 30MG XL TAB PO SCH (08:54)
[2023-03-18] MEDS ORDERED: DEXTROSE 50% 50ML SYRINGE IV STA ×4 (09:20→22:09)
[2023-03-18] MEDS ORDERED: HumuLIN R (REGULAR) INSULIN (NovoLIN R) **100U/ML** PER UNIT IV STA ×4 (09:20→22:09)
[2023-03-18] MEDS ORDERED: PATIROMER SORBITEX CALCIUM 8.4 GM POWDER PACKET (VELTASSA) PO ONE ×2 (09:29→22:10)
[2023-03-18] MEDS: BACLOFEN 10 MG TAB PO PRN (12:18)
[2023-03-18] MEDS ORDERED: **hydrALAZINE HCL** 25 MG TAB PO ONE (14:00)
[2023-03-18 14:02] LABS: CALCIUM LEVEL 9.4 MG/DL (8.3-10.6); CREATININE FOR GFR 2.57 MG/DL (0.70-1.30); POTASSIUM SERUM 5.9 MMOL/L (3.5-5.1)
[2023-03-18] MEDS ORDERED: SOD POLYSTYRENE SULFONATE SUSP 15GM 60ML UD PO ONE (15:00)
[2023-03-18] MEDS: **hydrALAZINE** 50 MG TAB PO SCH ×2 (17:18→23:45)
[2023-03-18] MEDS: LEVEMIR (INSULIN DETEMIR) 1 UNITS/0.01ML SC SCH (20:55)
[2023-03-18] MEDS: ATORVASTATIN 20 MG TAB PO SCH (20:55)
[2023-03-18] MEDS: ACETAMINOPHEN TAB 650MG DOSE (2X325MG) PO PRN (20:57)
[2023-03-19] VITALS (15 sets, daily range): BP systolic 166–198; BP diastolic 82–104; PULSE 76; TEMP 97.7–98; O2SAT 95–100
[2023-03-19] MEDS: BACLOFEN 10 MG TAB PO PRN ×2 (01:56→17:45)
[2023-03-19] MEDS: IPRATROPIUM 0.5MG/ALBUTEROL 2.5MG INH SOL UD 3ML (DUONEB) NEB SCH ×4 (02:50→19:11)
[2023-03-19] MEDS: PIPERACILLIN/TAZOBACTAM SOD 3.375 GM in D5W MINI-BAG PLUS 50 ML IV SCH ×2 (04:16→09:25)
[2023-03-19] MEDS: methylPREDNISolone 40MG 1ML VIAL IV SCH ×3 (04:16→20:11)
[2023-03-19 04:19] LABS: BASO % 0.1 % (0.0-1.0); HEMATOCRIT 28.7 % (42.0-52.0); HEMOGLOBIN 9.3 g/dl (13.5-17.5); LYMPH % 8.2 % (24.0-44.0); MEAN CORPUSCULAR HEMOGLOBIN 27.2 pg (27.0-33.0); MEAN CORPUSCULAR HGB CONC 32.4 g/dl (32.0-36.5); MEAN CORPUSCULAR VOLUME 83.9 fl (80.0-96.0); MONO # 0.9 10^3/uL (0.0-0.8); MONO % 7.2 % (2.0-8.0); NEUTROPHILS # 10.4 10^3/uL (1.5-8.5); NEUTROPHILS % 82.7 % (36.0-66.0); PLATELET COUNT, AUTOMATED 323 10^3/uL (150-450); RED BLOOD COUNT 3.42 10^6/uL (4.30-6.10); WHITE BLOOD COUNT 12.5 10^3/uL (4.0-10.0)
[2023-03-19 04:47] LABS: CALCIUM LEVEL 8.6 MG/DL (8.3-10.6); CREATININE FOR GFR 2.18 MG/DL (0.70-1.30); GLOMERULAR FILTRATION RATE 39.9 (>49); POTASSIUM SERUM 5.1 MMOL/L (3.5-5.1)
[2023-03-19] MEDS: HEPARIN SOD (PORCINE) 5000UNITS/ML 1ML VIAL/SYRINGE SC SCH ×3 (05:34→21:42)
[2023-03-19] MEDS: guaiFENesin 200 MG TAB PO SCH ×4 (05:35→23:15)
[2023-03-19] MEDS: **hydrALAZINE** 50 MG TAB PO SCH ×2 (05:35→12:21)
[2023-03-19] MEDS: ISOSORBIDE DIN. (ISORDIL) 30 MG TAB PO SCH ×4 (05:36→23:19)
[2023-03-19] MEDS: INSULIN LISPRO (NovoLOG) PER UNIT SC SCH ×4 (07:45→20:12)
[2023-03-19] MEDS: ACETAMINOPHEN TAB 650MG DOSE (2X325MG) PO PRN ×2 (07:45→23:20)
[2023-03-19] MEDS: GABAPENTIN 100 MG CAP PO SCH ×3 (08:22→20:16)
[2023-03-19] MEDS: CLOPIDOGREL 75 MG TAB PO SCH (08:22)
[2023-03-19] MEDS: FERROUS SULFATE 325MG TAB PO SCH ×2 (08:22→20:16)
[2023-03-19] MEDS: NIFEdipine 30MG XL TAB PO SCH (08:22)
[2023-03-19] MEDS: SENOKOT S TAB PO SCH ×2 (08:22→20:15)
[2023-03-19] MEDS: CARVedilol 12.5 MG TAB PO SCH ×2 (08:23→20:17)
[2023-03-19] MEDS: ASPIRIN 81MG CHEW TABLET PO SCH (08:23)
[2023-03-19] MEDS: VENLAFAXINE **XR** 75MG CAPSULE PO SCH (08:23)
[2023-03-19] MEDS: FLUTICASONE PROP 0.05% NASAL SPRAY 16 GM (FLONASE) NARES SCH (08:23)
[2023-03-19] MEDS: oxyCODONE 5MG TAB PO PRN ×2 (09:37→20:16)
[2023-03-19 14:08] LABS: MYCOPLASMA PNEUMONIAE IgG 945 U/mL (0-99); MYCOPLASMA PNEUMONIAE IgM <770 U/mL (0-769)
[2023-03-19] MEDS ORDERED: **hydrALAZINE HCL** 25 MG TAB PO ONE (14:50)
[2023-03-19] MEDS: PIPERACILLIN/TAZOBACTAM SOD 4.5 GM in D5W MINI-BAG PLUS 50 ML IV SCH ×2 (15:59→23:12)
[2023-03-19] MEDS: **hydrALAZINE HCL** 25 MG TAB PO SCH ×2 (17:41→23:19)
[2023-03-19] MEDS: LEVEMIR (INSULIN DETEMIR) 1 UNITS/0.01ML SC SCH (20:12)
[2023-03-19] MEDS: ATORVASTATIN 20 MG TAB PO SCH (20:15)
[2023-03-20] MEDS: IPRATROPIUM 0.5MG/ALBUTEROL 2.5MG INH SOL UD 3ML (DUONEB) NEB SCH ×3 (00:07→13:44)
[2023-03-20 01:50] VITALS: BP 150/72
[2023-03-20 04:00] VITALS: BP 160/104; TEMP 97.7; O2SAT 97
[2023-03-20] MEDS: PIPERACILLIN/TAZOBACTAM SOD 4.5 GM in D5W MINI-BAG PLUS 50 ML IV SCH ×2 (05:12→10:48)
[2023-03-20] MEDS: methylPREDNISolone 40MG 1ML VIAL IV SCH (05:12)
[2023-03-20] MEDS: guaiFENesin 200 MG TAB PO SCH ×2 (05:13→11:51)
[2023-03-20] MEDS: ISOSORBIDE DIN. (ISORDIL) 30 MG TAB PO SCH ×2 (05:13→11:51)
[2023-03-20] MEDS: HEPARIN SOD (PORCINE) 5000UNITS/ML 1ML VIAL/SYRINGE SC SCH ×2 (05:13→14:16)
[2023-03-20] MEDS: oxyCODONE 5MG TAB PO PRN (05:15)
[2023-03-20] MEDS: **hydrALAZINE HCL** 25 MG TAB PO SCH (05:17)
[2023-03-20 06:56] LABS: BASO % 0.1 % (0.0-1.0); EOS % 0.1 % (0.0-3.0); HEMATOCRIT 32.2 % (42.0-52.0); HEMOGLOBIN 10.3 g/dl (13.5-17.5); LYMPH # 1.8 10^3/uL (1.5-5.0); LYMPH % 12.5 % (24.0-44.0); MEAN CORPUSCULAR HEMOGLOBIN 27.1 pg (27.0-33.0); MEAN CORPUSCULAR VOLUME 84.7 fl (80.0-96.0); MONO # 0.9 10^3/uL (0.0-0.8); MONO % 6.2 % (2.0-8.0); NEUTROPHILS # 11.5 10^3/uL (1.5-8.5); PLATELET COUNT, AUTOMATED 361 10^3/uL (150-450); WHITE BLOOD COUNT 14.6 10^3/uL (4.0-10.0)
[2023-03-20] MEDS ORDERED: FUROSEMIDE 100MG/10ML VIAL IV ONE (07:00)
[2023-03-20 07:29] LABS: ALBUMIN 3.1 G/DL (3.2-5.2); ALKALINE PHOSPHATASE 87 U/L (46-116); ALT/SGPT 17 U/L (7.0-40); AST/SGOT < 8 U/L (<34); BILIRUBIN,TOTAL 0.2 MG/DL (0.3-1.2); BLOOD UREA NITROGEN 42 MG/DL (9-23); CALCIUM LEVEL 9.4 MG/DL (8.3-10.6); CARBON DIOXIDE LEVEL 24 MMOL/L (20-31); CHLORIDE LEVEL 107 MMOL/L (98-107); CREATININE FOR GFR 1.97 MG/DL (0.70-1.30); GLOMERULAR FILTRATION RATE 44.8 (>49); GLUCOSE, FASTING 232 MG/DL (74-106); MAGNESIUM LEVEL 1.8 MG/DL (1.8-2.4); SODIUM LEVEL 139 MMOL/L (136-145); TOTAL PROTEIN 6.5 G/DL (5.7-8.2)
[2023-03-20 07:54] VITALS: BP_SYST 148; BP_SYST 170; BP_DIAS 74; BP_DIAS 94; TEMP 97; TEMP 98.1; O2SAT 100; O2SAT 96
[2023-03-20] MEDS: INSULIN LISPRO (NovoLOG) PER UNIT SC SCH ×2 (07:54→11:52)
[2023-03-20] MEDS: NIFEdipine 30MG XL TAB PO SCH (08:20)
[2023-03-20] MEDS ORDERED: LEVEMIR (INSULIN DETEMIR) 1 UNITS/0.01ML SC SCH (09:00)
[2023-03-20] MEDS ORDERED: NIFEdipine 30MG XL TAB PO STA ×2 (09:16→11:03)
[2023-03-20] MEDS: ASPIRIN 81MG CHEW TABLET PO SCH (09:25)
[2023-03-20] MEDS: FERROUS SULFATE 325MG TAB PO SCH (09:25)
[2023-03-20] MEDS: CLOPIDOGREL 75 MG TAB PO SCH (09:25)
[2023-03-20] MEDS: VENLAFAXINE **XR** 75MG CAPSULE PO SCH (09:25)
[2023-03-20] MEDS: SENOKOT S TAB PO SCH (09:25)
[2023-03-20] MEDS: GABAPENTIN 100 MG CAP PO SCH (09:25)
[2023-03-20] MEDS: FLUTICASONE PROP 0.05% NASAL SPRAY 16 GM (FLONASE) NARES SCH (09:28)
[2023-03-20] MEDS: CARVedilol 12.5 MG TAB PO SCH (09:33)
[2023-03-20 10:01] VITALS: BP 186/104
[2023-03-20] MEDS: ACETAMINOPHEN TAB 650MG DOSE (2X325MG) PO PRN (10:49)
[2023-03-20 11:40] VITALS: BP 168/96
[2023-03-20 11:51] VITALS: BP 168/96
[2023-03-20] MEDS ORDERED: **hydrALAZINE** 50 MG TAB PO SCH (12:00)
[2023-03-20] MEDS ORDERED: PRED20TA PO (13:29)
[2023-03-20] MEDS ORDERED: NIFE1TAB51 PO (13:29)
[2023-03-20] MEDS ORDERED: BACL10TA2 PO (13:29)
[2023-03-20] MEDS ORDERED: HYDR50TA PO (13:29)
[2023-03-20] MEDS ORDERED: LASI40TA9 PO (13:29)
[2023-03-20] MEDS ORDERED: AUGM500T34 PO (13:29)
[2023-03-20] MEDS ORDERED: methylPREDNISolone 40MG 1ML VIAL IV SCH (16:00)
[2023-03-20] MEDS ORDERED: FUROSEMIDE 40MG/4ML VIAL IV SCH (17:00)
[2023-03-21] MEDS ORDERED: NIFEdipine 30MG XL TAB PO SCH (09:00)
[2023-03-21 18:09] LABS: CHLAMYDIA PNEUMONIAE IgM < 1:10 (< 1:10); CHLAMYDIA PSITTACI IgM < 1:10 (< 1:10); CHLAMYDIA TRACHOMATIS IgM < 1:10 (< 1:10)
== END 2023-03-20 16:29 | disposition home health service (06) | DRG 193 ==
LOC: M ED 21:25 → M ED INP 03-17 03:01 → M PCU 03-17 04:50
PROVIDERS: ADMIT Internal Medicine; ATTEND Family Medicine
DX: J18.9 Pneumonia, unspecified organism (principal); J96.91 Respiratory failure, unspecified with hypoxia; E87.1 Hypo-osmolality and hyponatremia; N17.9 Acute kidney failure, unspecified; I16.0 Hypertensive urgency; N18.30 Chronic kidney disease, stage 3 unspecified; I25.10 Atherosclerotic heart disease of native coronary artery without angina pectoris; E11.65 Type 2 diabetes mellitus with hyperglycemia; E11.22 Type 2 diabetes mellitus with diabetic chronic kidney disease; I12.9 Hypertensive chronic kidney disease with stage 1 through stage 4 chronic kidney disease, or unspecified chronic kidney disease; D50.9 Iron deficiency anemia, unspecified; E87.5 Hyperkalemia; G47.33 Obstructive sleep apnea (adult) (pediatric); Z91.119 Patient's noncompliance with dietary regimen due to unspecified reason; M10.9 Gout, unspecified; F41.9 Anxiety disorder, unspecified; F32.A Depression, unspecified; Z87.891 Personal history of nicotine dependence; Z79.899 Other long term (current) drug therapy; Z79.4 Long term (current) use of insulin; Z79.52 Long term (current) use of systemic steroids

== ENCOUNTER 2023-07-17 08:35 | Observation (INO) | payer MEDICARE, OTHER ==
[~2023-07-17] VITALS: Ht 175.3 cm; Wt 94.7 kg
[~2023-07-17 08:35] MED LIST changes: +AUGM500T34 PO; +AZIT-10 PO; +FERR325T18 PO; +HYDR50TA PO; +LASI40TA9 PO; +NIFE-3 PO; +NIFE1TAB51 PO; -NIFE30TA50 PO; -NIFE60TA40 PO; +NIFE60TA96 PO; +OXYC7.5T3 PO
[2023-07-17] MEDS ORDERED: ASPIRIN 81MG CHEW TABLET PO ONE (08:50)
[2023-07-17] MEDS ORDERED: MORPHINE 4 MG/ML 1ML VIAL IV ONE (09:00)
[2023-07-17] MEDS ORDERED: ALBUTEROL SULFATE 2.5MG/0.5ML INH NEB SOLN INH ONE (09:05)
[2023-07-17] MEDS ORDERED: IPRATROPIUM 0.5MG/ALBUTEROL 2.5MG INH SOL UD 3ML (DUONEB) NEB ONE (09:05)
[2023-07-17] MEDS ORDERED: methylPREDNISolone 125MG 2ML VIAL IV ONE (09:05)
[2023-07-17 09:25] LABS: BASO # 0.1 10^3/uL (0.0-0.2); BASO % 0.9 % (0.0-1.0); EOS # 0.5 10^3/uL (0.0-0.5); EOS % 7.4 % (0.0-3.0); HEMOGLOBIN 10.4 g/dl (13.5-17.5); LYMPH # 1.8 10^3/uL (1.5-5.0); LYMPH % 27.9 % (24.0-44.0); MEAN CORPUSCULAR HEMOGLOBIN 26.7 pg (27.0-33.0); MEAN CORPUSCULAR HGB CONC 30.6 g/dl (32.0-36.5); MEAN CORPUSCULAR VOLUME 87.4 fl (80.0-96.0); MONO # 0.7 10^3/uL (0.0-0.8); MONO % 11.3 % (2.0-8.0); NEUTROPHILS # 3.4 10^3/uL (1.5-8.5); NEUTROPHILS % 52.2 % (36.0-66.0); PLATELET COUNT, AUTOMATED 268 10^3/uL (150-450); RED BLOOD COUNT 3.89 10^6/uL (4.30-6.10); WHITE BLOOD COUNT 6.5 10^3/uL (4.0-10.0)
[2023-07-17 09:45] LABS: INR 0.95; PARTIAL THROMBOPLASTIN TIME 31.3 SECONDS (24.8-34.2); PROTHROMBIN TIME 12.4 SECONDS (12.5-14.5)
[2023-07-17 09:50] LABS: CK-MB VALUE MASS 3.8 NG/ML (<3.6)
[2023-07-17 09:53] LABS: ALBUMIN 3.5 G/DL (3.2-5.2); BILIRUBIN,DIRECT 0.1 MG/DL (<0.4); BILIRUBIN,TOTAL 0.3 MG/DL (0.3-1.2); CALCIUM LEVEL 9.2 MG/DL (8.3-10.6); CREATININE FOR GFR 1.81 MG/DL (0.70-1.30); GLOMERULAR FILTRATION RATE 49.3 (>49); MB/CK RELATIVE INDEX 0.38 (< OR =4); TOTAL PROTEIN 7.1 G/DL (5.7-8.2)
[2023-07-17 09:54] LABS: THYROID STIMULATING HORMONE 2.943 uIU/ML (0.55-4.78)
[2023-07-17 09:55] LABS: FREE T4 1.01 NG/DL (0.89-1.76)
[2023-07-17 10:13] LABS: RSV AMPLIFICATION NEGATIVE (NEGATIVE)
[2023-07-17] MEDS ORDERED: hydrALAZINE 20MG/ML 1ML VIAL IV STA (10:14)
[2023-07-17] MEDS ORDERED: AZITHROMYCIN INJ 500 MG, VIAL MATE ADAPTER 1 EACH in D5W 250 ML IV ONE (10:20)
[2023-07-17] MEDS ORDERED: cefTRIAXone SOD 1 GM in D5W MINI-BAG PLUS 50 ML IV ONE ×2 (10:20→10:35)
[2023-07-17] MEDS ORDERED: DOXYCYCLINE HYCLATE 100MG TABLET PO ONE (10:35)
[2023-07-17 10:41] LABS: CK-MB VALUE MASS 3.4 NG/ML (<3.6)
[2023-07-17] MEDS: MORPHINE 2 MG/ML 1ML VIAL IV PRN ×2 (10:44→16:48)
[2023-07-17 10:48] LABS: MB/CK RELATIVE INDEX 0.35 (< OR =4)
[2023-07-17 10:56] LABS: PROCALCITONIN 0.05 ng/ml
[2023-07-17] MEDS ORDERED: MED REC IN PROGRESS XX SCH (11:35)
[2023-07-17] MEDS ORDERED: ACETAMINOPHEN TAB 650MG DOSE (2X325MG) PO PRN (12:40)
[2023-07-17] MEDS ORDERED: GLUCOSE 4GM CHEW TABLET PO PRN (12:40)
[2023-07-17] MEDS ORDERED: DEXTROSE 50% 50ML SYRINGE IV PRN (12:40)
[2023-07-17] MEDS ORDERED: GLUCAGON INJ 1MG VIAL SC PRN (12:40)
[2023-07-17] MEDS ORDERED: hydrALAZINE 20MG/ML 1ML VIAL IV PRN (12:45)
[2023-07-17] MEDS ORDERED: MED REC CURRENTLY UNOBTAINABLE XX SCH (13:15)
[2023-07-17] MEDS ORDERED: **hydrALAZINE** 50 MG TAB PO SCH (14:00)
[2023-07-17] MEDS ORDERED: **hydrALAZINE** 50 MG TAB PO STA (14:40)
[2023-07-17] MEDS ORDERED: ISOSORBIDE DIN. (ISORDIL) 30 MG TAB PO STA (14:41)
[2023-07-17] MEDS: INSULIN LISPRO (NovoLOG) PER UNIT SC SCH ×3 (14:51→20:52)
[2023-07-17] MEDS ORDERED: FURO40TA2 PO (17:29)
[2023-07-17] MEDS ORDERED: BACL10TA2 PO (17:29)
[2023-07-17] MEDS ORDERED: NIFE60TA96 PO (17:29)
[2023-07-17] MEDS ORDERED: FLON1SPR NARES (17:32)
[2023-07-17] MEDS ORDERED: CARV25TA PO (17:33)
[2023-07-17] MEDS ORDERED: buspirone PO (17:34)
[2023-07-17] MEDS ORDERED: DOCU100C16 PO (17:40)
[2023-07-17] MEDS ORDERED: POLY1POW38 PO (17:40)
[2023-07-17] MEDS ORDERED: ALLO100T PO (17:40)
[2023-07-17] MEDS ORDERED: MM S100C PO (17:40)
[2023-07-17] MEDS ORDERED: med rec comment (17:41)
[2023-07-17] MEDS ORDERED: HOME MED LIST COMPLETE! XX SCH (17:45)
[2023-07-17] MEDS: BACLOFEN 10 MG TAB PO SCH (21:12)
[2023-07-17] MEDS: CARVedilol 12.5 MG TAB PO SCH (21:13)
[2023-07-17] MEDS: PERCOCET 5MG/325MG TAB PO PRN (21:14)
[2023-07-17] MEDS: ATORVASTATIN 20 MG TAB PO SCH (21:14)
[2023-07-17] MEDS: **hydrALAZINE** 50 MG TAB PO SCH (21:14)
[2023-07-17] MEDS: FERROUS SULFATE 325MG TAB PO SCH (21:15)
[2023-07-17] MEDS: LEVEMIR (INSULIN DETEMIR) 1 UNITS/0.01ML SC SCH (21:15)
[2023-07-17] MEDS: HEPARIN SOD (PORCINE) 5000UNITS/ML 1ML VIAL/SYRINGE SC SCH (21:16)
[2023-07-17 22:09] VITALS: BP 198/116; TEMP 98; O2SAT 99
[2023-07-17] MEDS ORDERED: GABAPENTIN 300 MG CAP PO ONE (22:25)
[2023-07-17] MEDS: ISOSORBIDE DIN. (ISORDIL) 30 MG TAB PO SCH (22:31)
[2023-07-18] VITALS (8 sets, daily range): BP systolic 127–175; BP diastolic 74–98; TEMP 97.5–98.6; O2SAT 94–100
[2023-07-18] MEDS ORDERED: GABA600T4 PO (01:04)
[2023-07-18] MEDS ORDERED: BUSP5TA PO (01:04)
[2023-07-18 04:12] LABS: HEMATOCRIT 29.8 % (42.0-52.0); HEMOGLOBIN 9.6 g/dl (13.5-17.5); MEAN CORPUSCULAR HEMOGLOBIN 27.1 pg (27.0-33.0); MEAN CORPUSCULAR HGB CONC 32.2 g/dl (32.0-36.5); MEAN CORPUSCULAR VOLUME 84.2 fl (80.0-96.0); PLATELET COUNT, AUTOMATED 267 10^3/uL (150-450); RED BLOOD COUNT 3.54 10^6/uL (4.30-6.10); WHITE BLOOD COUNT 10.9 10^3/uL (4.0-10.0)
[2023-07-18] MEDS: ISOSORBIDE DIN. (ISORDIL) 30 MG TAB PO SCH ×4 (04:20→23:15)
[2023-07-18] MEDS: **hydrALAZINE** 50 MG TAB PO SCH ×4 (04:20→23:15)
[2023-07-18] MEDS: HEPARIN SOD (PORCINE) 5000UNITS/ML 1ML VIAL/SYRINGE SC SCH ×3 (04:21→21:16)
[2023-07-18] MEDS: PERCOCET 5MG/325MG TAB PO PRN ×3 (04:21→21:15)
[2023-07-18 04:57] LABS: CALCIUM LEVEL 8.6 MG/DL (8.3-10.6); CREATININE FOR GFR 2.19 MG/DL (0.70-1.30); GLOMERULAR FILTRATION RATE 39.5 (>49); MAGNESIUM LEVEL 1.3 MG/DL (1.8-2.4); POTASSIUM SERUM 6.1 MMOL/L (3.5-5.1)
[2023-07-18] MEDS ORDERED: DEXTROSE 50% 50ML SYRINGE IV STA ×3 (05:00→11:20)
[2023-07-18] MEDS ORDERED: HumuLIN R (REGULAR) INSULIN (NovoLIN R) **100U/ML** PER UNIT IV STA ×2 (05:00→11:14)
[2023-07-18] MEDS ORDERED: CALCIUM GLUCONATE 1,000 MG in D5W MINI-BAG PLUS 100 ML IV ONE (05:00)
[2023-07-18] MEDS ORDERED: MAGNESIUM OXIDE 400MG TAB (MAG-OX) PO ONE (05:35)
[2023-07-18] MEDS ORDERED: MAG SULF 1GM/100ML (MAG RUN) 1 GM in IV 1 EA IV ONE (05:35)
[2023-07-18] MEDS ORDERED: FLUTICASONE PROP 0.05% NASAL SPRAY 16 GM (FLONASE) NARES PRN (07:10)
[2023-07-18] MEDS ORDERED: MIRALAX *UNIT DOSE* 17GM PACKET PO PRN (07:10)
[2023-07-18] MEDS: INSULIN LISPRO (NovoLOG) PER UNIT SC SCH ×4 (09:26→21:00)
[2023-07-18] MEDS: allopurinoL 100 MG TAB PO SCH (09:26)
[2023-07-18] MEDS: AZITHROMYCIN 250MG TABLET PO SCH (09:27)
[2023-07-18] MEDS: GABAPENTIN 300 MG CAP PO SCH ×3 (09:28→21:14)
[2023-07-18] MEDS: ASPIRIN 81MG CHEW TABLET PO SCH (09:28)
[2023-07-18] MEDS: VENLAFAXINE **XR** 75MG CAPSULE PO SCH (09:28)
[2023-07-18] MEDS: NIFEdipine 30MG XL TAB PO SCH (09:28)
[2023-07-18] MEDS: CARVedilol 12.5 MG TAB PO SCH ×2 (09:29→21:16)
[2023-07-18] MEDS: CLOPIDOGREL 75 MG TAB PO SCH (09:29)
[2023-07-18] MEDS: DOCUSATE SODIUM 100MG CAPSULE PO SCH (09:29)
[2023-07-18] MEDS: BACLOFEN 10 MG TAB PO SCH ×3 (09:29→21:14)
[2023-07-18] MEDS: FERROUS SULFATE 325MG TAB PO SCH ×2 (09:30→21:15)
[2023-07-18] MEDS: FUROSEMIDE 40 MG TAB PO SCH (09:30)
[2023-07-18] MEDS: cefTRIAXone SOD 2 GM in D5W MINI-BAG PLUS 50 ML IV SCH (09:30)
[2023-07-18 15:44] LABS: MAGNESIUM LEVEL 1.8 MG/DL (1.8-2.4); POTASSIUM SERUM 5.3 MMOL/L (3.5-5.1)
[2023-07-18] MEDS: ATORVASTATIN 20 MG TAB PO SCH (21:15)
[2023-07-18] MEDS: busPIRone 5 MG TAB PO SCH (21:15)
[2023-07-18] MEDS: LEVEMIR (INSULIN DETEMIR) 1 UNITS/0.01ML SC SCH (21:16)
[2023-07-19 03:14] VITALS: BP 132/77; TEMP 98.1; O2SAT 94
[2023-07-19] MEDS: ISOSORBIDE DIN. (ISORDIL) 30 MG TAB PO SCH ×4 (04:10→21:35)
[2023-07-19] MEDS: **hydrALAZINE** 50 MG TAB PO SCH ×4 (04:11→21:34)
[2023-07-19] MEDS: PERCOCET 5MG/325MG TAB PO PRN ×3 (04:11→21:34)
[2023-07-19] MEDS: HEPARIN SOD (PORCINE) 5000UNITS/ML 1ML VIAL/SYRINGE SC SCH ×3 (05:58→21:37)
[2023-07-19] MEDS: guaiFENesin 200 MG TAB PO SCH ×4 (06:00→23:39)
[2023-07-19 06:34] LABS: BASO # 0.1 10^3/uL (0.0-0.2); BASO % 0.7 % (0.0-1.0); EOS # 0.4 10^3/uL (0.0-0.5); HEMATOCRIT 30.1 % (42.0-52.0); HEMOGLOBIN 9.5 g/dl (13.5-17.5); LYMPH # 2.7 10^3/uL (1.5-5.0); LYMPH % 26.1 % (24.0-44.0); MEAN CORPUSCULAR HEMOGLOBIN 26.9 pg (27.0-33.0); MEAN CORPUSCULAR HGB CONC 31.6 g/dl (32.0-36.5); MEAN CORPUSCULAR VOLUME 85.3 fl (80.0-96.0); MONO # 0.8 10^3/uL (0.0-0.8); MONO % 7.8 % (2.0-8.0); NEUTROPHILS # 6.3 10^3/uL (1.5-8.5); NEUTROPHILS % 61.1 % (36.0-66.0); PLATELET COUNT, AUTOMATED 291 10^3/uL (150-450); RED BLOOD COUNT 3.53 10^6/uL (4.30-6.10); WHITE BLOOD COUNT 10.3 10^3/uL (4.0-10.0)
[2023-07-19 06:48] LABS: CALCIUM LEVEL 8.8 MG/DL (8.3-10.6); CREATININE FOR GFR 2.9 MG/DL (0.70-1.30); GLOMERULAR FILTRATION RATE 28.6 (>49); MAGNESIUM LEVEL 1.7 MG/DL (1.8-2.4); POTASSIUM SERUM 5.5 MMOL/L (3.5-5.1)
[2023-07-19] MEDS ORDERED: DEXTROSE 50% 50ML SYRINGE IV STA (07:28)
[2023-07-19] MEDS ORDERED: HumuLIN R (REGULAR) INSULIN (NovoLIN R) **100U/ML** PER UNIT IV STA ×2 (07:28→07:49)
[2023-07-19] MEDS ORDERED: MAGNESIUM OXIDE 400MG TAB (MAG-OX) PO ONE (07:30)
[2023-07-19 07:52] VITALS: BP 139/85; TEMP 97.9; O2SAT 96
[2023-07-19] MEDS: cefTRIAXone SOD 2 GM in D5W MINI-BAG PLUS 50 ML IV SCH (08:54)
[2023-07-19] MEDS: AZITHROMYCIN 250MG TABLET PO SCH (08:55)
[2023-07-19] MEDS: ASPIRIN 81MG CHEW TABLET PO SCH (08:55)
[2023-07-19] MEDS: NIFEdipine 30MG XL TAB PO SCH (08:56)
[2023-07-19] MEDS: DOCUSATE SODIUM 100MG CAPSULE PO SCH (08:56)
[2023-07-19] MEDS: FUROSEMIDE 40 MG TAB PO SCH (08:57)
[2023-07-19] MEDS: GABAPENTIN 300 MG CAP PO SCH ×3 (08:58→21:34)
[2023-07-19] MEDS: CLOPIDOGREL 75 MG TAB PO SCH (08:58)
[2023-07-19] MEDS: CARVedilol 12.5 MG TAB PO SCH ×2 (08:58→21:34)
[2023-07-19] MEDS: allopurinoL 100 MG TAB PO SCH (08:59)
[2023-07-19] MEDS: VENLAFAXINE **XR** 75MG CAPSULE PO SCH (08:59)
[2023-07-19] MEDS: BACLOFEN 10 MG TAB PO SCH ×3 (08:59→21:35)
[2023-07-19] MEDS: FERROUS SULFATE 325MG TAB PO SCH ×2 (08:59→21:35)
[2023-07-19] MEDS: INSULIN LISPRO (NovoLOG) PER UNIT SC SCH ×4 (09:00→20:22)
[2023-07-19] MEDS ORDERED: SOD POLYSTYRENE SULFONATE SUSP 15GM 60ML UD PO ONE (10:00)
[2023-07-19] MEDS: TAMSULOSIN 0.4 MG CAP PO SCH (10:18)
[2023-07-19 12:00] VITALS: BP 138/85; TEMP 97.4; O2SAT 97
[2023-07-19 16:05] VITALS: BP 130/81; TEMP 97.2; O2SAT 97
[2023-07-19 18:43] VITALS: BP 152/91; TEMP 98.1; O2SAT 96
[2023-07-19 20:00] VITALS: BP 151/91; TEMP 98.2; O2SAT 99
[2023-07-19] MEDS: ATORVASTATIN 20 MG TAB PO SCH (21:34)
[2023-07-19] MEDS: busPIRone 5 MG TAB PO SCH (21:34)
[2023-07-19] MEDS: LEVEMIR (INSULIN DETEMIR) 1 UNITS/0.01ML SC SCH (21:37)
[2023-07-20 04:55] VITALS: BP 131/76; TEMP 97.7; O2SAT 98
[2023-07-20] MEDS: guaiFENesin 200 MG TAB PO SCH ×2 (04:57→11:53)
[2023-07-20] MEDS: HEPARIN SOD (PORCINE) 5000UNITS/ML 1ML VIAL/SYRINGE SC SCH (04:57)
[2023-07-20] MEDS: ISOSORBIDE DIN. (ISORDIL) 30 MG TAB PO SCH ×2 (04:57→10:03)
[2023-07-20] MEDS: **hydrALAZINE** 50 MG TAB PO SCH ×2 (04:57→10:05)
[2023-07-20] MEDS: PERCOCET 5MG/325MG TAB PO PRN (04:58)
[2023-07-20 05:28] VITALS: O2SAT 98
[2023-07-20 06:18] LABS: BASO % 0.7 % (0.0-1.0); EOS # 0.5 10^3/uL (0.0-0.5); EOS % 8.6 % (0.0-3.0); HEMATOCRIT 30.1 % (42.0-52.0); HEMOGLOBIN 9.5 g/dl (13.5-17.5); LYMPH % 32.1 % (24.0-44.0); MEAN CORPUSCULAR HEMOGLOBIN 26.7 pg (27.0-33.0); MEAN CORPUSCULAR HGB CONC 31.6 g/dl (32.0-36.5); MEAN CORPUSCULAR VOLUME 84.6 fl (80.0-96.0); MONO # 0.6 10^3/uL (0.0-0.8); MONO % 9.1 % (2.0-8.0); NEUTROPHILS % 49.2 % (36.0-66.0); PLATELET COUNT, AUTOMATED 276 10^3/uL (150-450); RED BLOOD COUNT 3.56 10^6/uL (4.30-6.10); WHITE BLOOD COUNT 6.1 10^3/uL (4.0-10.0)
[2023-07-20 06:46] LABS: CALCIUM LEVEL 8.5 MG/DL (8.3-10.6); CREATININE FOR GFR 2.96 MG/DL (0.70-1.30); GLOMERULAR FILTRATION RATE 27.9 (>49); MAGNESIUM LEVEL 1.9 MG/DL (1.8-2.4)
[2023-07-20] MEDS: FUROSEMIDE 40 MG TAB PO SCH (08:26)
[2023-07-20] MEDS: INSULIN LISPRO (NovoLOG) PER UNIT SC SCH ×2 (10:02→12:38)
[2023-07-20] MEDS: AZITHROMYCIN 250MG TABLET PO SCH (10:02)
[2023-07-20] MEDS: cefTRIAXone SOD 2 GM in D5W MINI-BAG PLUS 50 ML IV SCH (10:02)
[2023-07-20] MEDS: BACLOFEN 10 MG TAB PO SCH (10:03)
[2023-07-20] MEDS: CARVedilol 12.5 MG TAB PO SCH (10:03)
[2023-07-20] MEDS: TAMSULOSIN 0.4 MG CAP PO SCH (10:04)
[2023-07-20] MEDS: VENLAFAXINE **XR** 75MG CAPSULE PO SCH (10:04)
[2023-07-20] MEDS: GABAPENTIN 300 MG CAP PO SCH (10:04)
[2023-07-20] MEDS: ASPIRIN 81MG CHEW TABLET PO SCH (10:04)
[2023-07-20] MEDS: allopurinoL 100 MG TAB PO SCH (10:04)
[2023-07-20 10:05] VITALS: BP 131/84
[2023-07-20] MEDS: NIFEdipine 30MG XL TAB PO SCH (10:05)
[2023-07-20] MEDS: DOCUSATE SODIUM 100MG CAPSULE PO SCH (10:05)
[2023-07-20] MEDS: FERROUS SULFATE 325MG TAB PO SCH (10:06)
[2023-07-20] MEDS: CLOPIDOGREL 75 MG TAB PO SCH (10:06)
[2023-07-20] MEDS ORDERED: FLOM0.4C39 PO ×2 (11:41→23:51)
[2023-07-20] MEDS ORDERED: CEFD300C42 PO ×2 (11:41→23:48)
[2023-07-20 17:08] LABS: BODY FLUID CULTURE Not indicated. (.); LEGIONELLA ANTIGEN URINE Negative (Negative); ORGANISM ID Not indicated. (.); SPECIMEN SOURCE Urine (.); URINE STREP PNEUMONIAE ANTIGEN Negative (Negative)
[2023-07-20] MEDS ORDERED: HYDR-3911 PO (23:48)
== END 2023-07-20 13:10 | disposition home or self-care (01) ==
LOC: M ED 08:35 → M ED INP 08:36 → M PCU 22:02 → M MSPAV 07-19 18:34
PROVIDERS: ADMIT Family Medicine; ATTEND Family Medicine
DX: I16.0 Hypertensive urgency (principal); J18.9 Pneumonia, unspecified organism; R07.9 Chest pain, unspecified; E11.9 Type 2 diabetes mellitus without complications; N18.9 Chronic kidney disease, unspecified; I12.9 Hypertensive chronic kidney disease with stage 1 through stage 4 chronic kidney disease, or unspecified chronic kidney disease; I25.10 Atherosclerotic heart disease of native coronary artery without angina pectoris; F32.A Depression, unspecified; F41.9 Anxiety disorder, unspecified; Z79.82 Long term (current) use of aspirin; E87.6 Hypokalemia; Z79.4 Long term (current) use of insulin; Z79.899 Other long term (current) drug therapy
CPT/HCPCS: 36415; 70450; 70544; 70551; 71045; 71250; 80047; 80048; 80076; 82550; 82553; 83605; 83690; 83735; 83880; 84132; 84145; 84439; 84443; 84484; 85025; 85027; 85610; 85730; 86850; 86900; 86901; 87040; 87077; 87186; 87449; 87631; 87641; 87899; 93005; 93041; 94640; 94760; 96361; 96365; 96366; 96367; 96372; 96375; 96376; 99285; G0378; J0360; J0456; J0612; J0696; J1815; J1940; J2930; J3475

== ENCOUNTER 2023-07-20 18:05 | Inpatient (IN) | payer MEDICARE ==
[~2023-07-20] VITALS: Ht 175.3 cm; Wt 93.4 kg
[~2023-07-20 18:05] MED LIST changes: +ALLO100T PO; +BUSP5TA PO; +CARV25TA PO; +CEFD300C42 PO; +DOCU100C16 PO; +FLOM0.4C39 PO; +FLON1SPR NARES; +FURO40TA2 PO; +MM S100C PO; +POLY1POW38 PO; +buspirone PO; +med rec comment
[2023-07-20 18:49] VITALS: BP 156/80; TEMP 97.1; O2SAT 97
[2023-07-20 18:58] LABS: BASO % 0.5 % (0.0-1.0); EOS # 0.6 10^3/uL (0.0-0.5); EOS % 7.5 % (0.0-3.0); HEMATOCRIT 30.1 % (42.0-52.0); HEMOGLOBIN 9.6 g/dl (13.5-17.5); LYMPH # 2.1 10^3/uL (1.5-5.0); LYMPH % 26.9 % (24.0-44.0); MEAN CORPUSCULAR HEMOGLOBIN 26.7 pg (27.0-33.0); MEAN CORPUSCULAR HGB CONC 31.9 g/dl (32.0-36.5); MEAN CORPUSCULAR VOLUME 83.8 fl (80.0-96.0); MONO # 0.7 10^3/uL (0.0-0.8); MONO % 9.4 % (2.0-8.0); NEUTROPHILS # 4.2 10^3/uL (1.5-8.5); NEUTROPHILS % 55.2 % (36.0-66.0); PLATELET COUNT, AUTOMATED 285 10^3/uL (150-450); RED BLOOD COUNT 3.59 10^6/uL (4.30-6.10); WHITE BLOOD COUNT 7.6 10^3/uL (4.0-10.0)
[2023-07-20 19:11] LABS: INR 1.02; PROTHROMBIN TIME 13.1 SECONDS (12.5-14.5)
[2023-07-20 19:12] LABS: PARTIAL THROMBOPLASTIN TIME 30.3 SECONDS (24.8-34.2)
[2023-07-20 19:19] LABS: CALCIUM LEVEL 8.7 MG/DL (8.3-10.6); CK-MB VALUE MASS 3.7 NG/ML (<3.6); CREATININE FOR GFR 2.98 MG/DL (0.70-1.30); GLOMERULAR FILTRATION RATE 27.7 (>49); MB/CK RELATIVE INDEX 0.73 (< OR =4); POTASSIUM SERUM 4.7 MMOL/L (3.5-5.1)
[2023-07-20] MEDS ORDERED: FUROSEMIDE 40MG/4ML VIAL IV ONE (19:50)
[2023-07-20 19:55] LABS: RSV AMPLIFICATION NEGATIVE (NEGATIVE)
[2023-07-20] MEDS ORDERED: PERCOCET 5MG/325MG TAB PO ONE (22:35)
[2023-07-20] MEDS ORDERED: BACLOFEN 10 MG TAB PO ONE (22:35)
[2023-07-20] MEDS ORDERED: GABAPENTIN 300 MG CAP PO ONE (22:35)
[2023-07-20] MEDS ORDERED: LEVALBUTEROL 1.25MG 0.5ML CONCENTRATE NEB NEB PRN (23:45)
[2023-07-20] MEDS ORDERED: ACETAMINOPHEN TAB 650MG DOSE (2X325MG) PO PRN (23:45)
[2023-07-20] MEDS ORDERED: HYDR-3911 PO (23:48)
[2023-07-20] MEDS ORDERED: CEFD300C42 PO (23:48)
[2023-07-20] MEDS ORDERED: FLOM0.4C39 PO (23:51)
[2023-07-20] MEDS ORDERED: HOME MED LIST COMPLETE! XX SCH (23:55)
[2023-07-20] MEDS ORDERED: FLUTICASONE PROP 0.05% NASAL SPRAY 16 GM (FLONASE) NARES PRN (23:55)
[2023-07-21 00:01] LABS: RSV AMPLIFICATION NEGATIVE (NEGATIVE)
[2023-07-21 01:07] VITALS: BP 151/85; TEMP 97.5; O2SAT 97
[2023-07-21] MEDS: IPRATROPIUM 0.5MG/ALBUTEROL 2.5MG INH SOL UD 3ML (DUONEB) NEB SCH ×4 (01:44→21:19)
[2023-07-21] MEDS ORDERED: DEXTROSE 50% 50ML SYRINGE IV PRN (01:45)
[2023-07-21] MEDS ORDERED: GLUCAGON INJ 1MG VIAL SC PRN (01:45)
[2023-07-21] MEDS ORDERED: GLUCOSE 4GM CHEW TABLET PO PRN (01:45)
[2023-07-21] MEDS: methylPREDNISolone 40MG 1ML VIAL IV SCH ×2 (05:44→17:34)
[2023-07-21] MEDS: HEPARIN SOD (PORCINE) 5000UNITS/ML 1ML VIAL/SYRINGE SC SCH ×3 (05:44→21:02)
[2023-07-21] MEDS: ISOSORBIDE DIN. (ISORDIL) 30 MG TAB PO SCH ×3 (05:44→17:34)
[2023-07-21] MEDS: **hydrALAZINE** 50 MG TAB PO SCH ×3 (05:45→17:34)
[2023-07-21] MEDS: PERCOCET 5MG/325MG TAB PO PRN ×3 (05:53→21:02)
[2023-07-21 05:56] VITALS: BP 161/83; TEMP 97.7; O2SAT 94
[2023-07-21] MEDS: MIRALAX *UNIT DOSE* 17GM PACKET PO PRN (06:28)
[2023-07-21 06:45] LABS: HEMATOCRIT 30.3 % (42.0-52.0); HEMOGLOBIN 9.7 g/dl (13.5-17.5); MEAN CORPUSCULAR HEMOGLOBIN 26.7 pg (27.0-33.0); MEAN CORPUSCULAR VOLUME 83.5 fl (80.0-96.0); PLATELET COUNT, AUTOMATED 293 10^3/uL (150-450); RED BLOOD COUNT 3.63 10^6/uL (4.30-6.10); WHITE BLOOD COUNT 6.9 10^3/uL (4.0-10.0)
[2023-07-21 07:16] LABS: CALCIUM LEVEL 8.6 MG/DL (8.3-10.6); CREATININE FOR GFR 2.38 MG/DL (0.70-1.30); GLOMERULAR FILTRATION RATE 35.9 (>49); POTASSIUM SERUM 4.4 MMOL/L (3.5-5.1)
[2023-07-21] MEDS: INSULIN LISPRO (NovoLOG) PER UNIT SC SCH ×4 (08:45→20:21)
[2023-07-21] MEDS: NIFEdipine 30MG XL TAB PO SCH (08:47)
[2023-07-21] MEDS: GABAPENTIN 300 MG CAP PO SCH ×3 (08:48→20:22)
[2023-07-21] MEDS: CEFDINIR 300 MG CAP (OMNICEF) PO SCH ×2 (08:48→20:21)
[2023-07-21] MEDS: ASPIRIN 81MG CHEW TABLET PO SCH (08:48)
[2023-07-21] MEDS: CLOPIDOGREL 75 MG TAB PO SCH (08:48)
[2023-07-21] MEDS: TAMSULOSIN 0.4 MG CAP PO SCH (08:48)
[2023-07-21] MEDS: FERROUS SULFATE 325MG TAB PO SCH ×2 (08:48→20:23)
[2023-07-21] MEDS: CARVedilol 12.5 MG TAB PO SCH ×2 (08:49→20:22)
[2023-07-21] MEDS: VENLAFAXINE **XR** 75MG CAPSULE PO SCH (08:49)
[2023-07-21] MEDS: BACLOFEN 10 MG TAB PO SCH ×3 (08:49→20:26)
[2023-07-21] MEDS: DOCUSATE SODIUM 100MG CAPSULE PO SCH (08:49)
[2023-07-21] MEDS: allopurinoL 100 MG TAB PO SCH (08:50)
[2023-07-21] MEDS ORDERED: FUROSEMIDE 40MG/4ML VIAL IV SCH ×2 (09:00)
[2023-07-21] MEDS: SENOKOT S TAB PO SCH ×2 (12:23→20:22)
[2023-07-21 14:00] VITALS: BP 108/63; TEMP 97.5; O2SAT 98
[2023-07-21 20:18] VITALS: BP 179/84; TEMP 98.2; O2SAT 93
[2023-07-21] MEDS: LEVEMIR (INSULIN DETEMIR) 1 UNITS/0.01ML SC SCH (20:21)
[2023-07-21] MEDS: busPIRone 5 MG TAB PO SCH (20:21)
[2023-07-21] MEDS: ATORVASTATIN 20 MG TAB PO SCH (20:22)
[2023-07-22] MEDS: **hydrALAZINE** 50 MG TAB PO SCH ×5 (00:51→23:49)
[2023-07-22] MEDS: ISOSORBIDE DIN. (ISORDIL) 30 MG TAB PO SCH ×5 (00:52→23:49)
[2023-07-22] MEDS: IPRATROPIUM 0.5MG/ALBUTEROL 2.5MG INH SOL UD 3ML (DUONEB) NEB SCH ×4 (01:15→20:15)
[2023-07-22 02:11] VITALS: BP 169/76
[2023-07-22 05:31] VITALS: BP 141/75; TEMP 97.6; O2SAT 95
[2023-07-22] MEDS: methylPREDNISolone 40MG 1ML VIAL IV SCH ×2 (05:32→18:21)
[2023-07-22] MEDS: HEPARIN SOD (PORCINE) 5000UNITS/ML 1ML VIAL/SYRINGE SC SCH ×3 (05:32→20:59)
[2023-07-22] MEDS: PERCOCET 5MG/325MG TAB PO PRN ×3 (05:32→21:00)
[2023-07-22] MEDS: guaiFENesin 200 MG TAB PO SCH ×4 (09:31→23:49)
[2023-07-22] MEDS: BACLOFEN 10 MG TAB PO SCH ×3 (09:32→21:00)
[2023-07-22] MEDS: SENOKOT S TAB PO SCH ×2 (09:32→21:01)
[2023-07-22] MEDS: DOCUSATE SODIUM 100MG CAPSULE PO SCH (09:33)
[2023-07-22] MEDS: VENLAFAXINE **XR** 75MG CAPSULE PO SCH (09:33)
[2023-07-22] MEDS: GABAPENTIN 300 MG CAP PO SCH ×3 (09:33→21:00)
[2023-07-22] MEDS: FUROSEMIDE 40 MG TAB PO SCH (09:33)
[2023-07-22] MEDS: CEFDINIR 300 MG CAP (OMNICEF) PO SCH ×2 (09:34→20:59)
[2023-07-22] MEDS: NIFEdipine 30MG XL TAB PO SCH (09:34)
[2023-07-22] MEDS: CARVedilol 12.5 MG TAB PO SCH ×2 (09:35→20:59)
[2023-07-22] MEDS: FERROUS SULFATE 325MG TAB PO SCH ×2 (09:35→21:00)
[2023-07-22] MEDS: CLOPIDOGREL 75 MG TAB PO SCH (09:36)
[2023-07-22] MEDS: ASPIRIN 81MG CHEW TABLET PO SCH (09:36)
[2023-07-22] MEDS: allopurinoL 100 MG TAB PO SCH (09:36)
[2023-07-22] MEDS: INSULIN LISPRO (NovoLOG) PER UNIT SC SCH ×4 (09:36→21:00)
[2023-07-22] MEDS: TAMSULOSIN 0.4 MG CAP PO SCH (09:36)
[2023-07-22] MEDS: MIRALAX *UNIT DOSE* 17GM PACKET PO PRN (09:51)
[2023-07-22 14:42] VITALS: BP 131/74; TEMP 97.9; O2SAT 95
[2023-07-22] MEDS ORDERED: FLEET ENEMA PR ONE (19:15)
[2023-07-22 19:49] VITALS: BP 175/84; O2SAT 98
[2023-07-22 20:00] VITALS: TEMP 97.7
[2023-07-22] MEDS: busPIRone 5 MG TAB PO SCH (20:59)
[2023-07-22] MEDS: ATORVASTATIN 20 MG TAB PO SCH (21:00)
[2023-07-22] MEDS: LEVEMIR (INSULIN DETEMIR) 1 UNITS/0.01ML SC SCH (21:01)
[2023-07-23] MEDS: IPRATROPIUM 0.5MG/ALBUTEROL 2.5MG INH SOL UD 3ML (DUONEB) NEB SCH ×4 (02:29→19:31)
[2023-07-23 06:07] LABS: BASO % 0.1 % (0.0-1.0); HEMATOCRIT 30.4 % (42.0-52.0); HEMOGLOBIN 9.7 g/dl (13.5-17.5); LYMPH # 1.5 10^3/uL (1.5-5.0); LYMPH % 10.3 % (24.0-44.0); MEAN CORPUSCULAR HEMOGLOBIN 26.9 pg (27.0-33.0); MEAN CORPUSCULAR HGB CONC 31.9 g/dl (32.0-36.5); MEAN CORPUSCULAR VOLUME 84.4 fl (80.0-96.0); MONO % 6.7 % (2.0-8.0); NEUTROPHILS # 12.1 10^3/uL (1.5-8.5); NEUTROPHILS % 81.8 % (36.0-66.0); PLATELET COUNT, AUTOMATED 314 10^3/uL (150-450); WHITE BLOOD COUNT 14.8 10^3/uL (4.0-10.0)
[2023-07-23 06:23] VITALS: BP 167/97; TEMP 98.9; O2SAT 96
[2023-07-23] MEDS: MIRALAX *UNIT DOSE* 17GM PACKET PO PRN (06:26)
[2023-07-23] MEDS: methylPREDNISolone 40MG 1ML VIAL IV SCH ×2 (06:26→17:45)
[2023-07-23] MEDS: PERCOCET 5MG/325MG TAB PO PRN ×2 (06:26→16:16)
[2023-07-23] MEDS: HEPARIN SOD (PORCINE) 5000UNITS/ML 1ML VIAL/SYRINGE SC SCH ×3 (06:26→20:35)
[2023-07-23] MEDS: **hydrALAZINE** 50 MG TAB PO SCH ×3 (06:26→17:45)
[2023-07-23] MEDS: guaiFENesin 200 MG TAB PO SCH (06:27)
[2023-07-23] MEDS: ISOSORBIDE DIN. (ISORDIL) 30 MG TAB PO SCH ×3 (06:27→17:45)
[2023-07-23 06:48] LABS: CALCIUM LEVEL 8.8 MG/DL (8.3-10.6); CREATININE FOR GFR 2.17 MG/DL (0.70-1.30); MAGNESIUM LEVEL 2.2 MG/DL (1.8-2.4); POTASSIUM SERUM 6.1 MMOL/L (3.5-5.1)
[2023-07-23] MEDS: VENLAFAXINE **XR** 75MG CAPSULE PO SCH (08:36)
[2023-07-23] MEDS: ASPIRIN 81MG CHEW TABLET PO SCH (08:36)
[2023-07-23] MEDS: BACLOFEN 10 MG TAB PO SCH ×3 (08:36→20:25)
[2023-07-23] MEDS: allopurinoL 100 MG TAB PO SCH (08:37)
[2023-07-23] MEDS: FERROUS SULFATE 325MG TAB PO SCH ×2 (08:37→20:25)
[2023-07-23] MEDS: GABAPENTIN 300 MG CAP PO SCH ×3 (08:37→20:25)
[2023-07-23] MEDS: NIFEdipine 30MG XL TAB PO SCH (08:37)
[2023-07-23] MEDS: DOCUSATE SODIUM 100MG CAPSULE PO SCH (08:37)
[2023-07-23] MEDS: CLOPIDOGREL 75 MG TAB PO SCH (08:38)
[2023-07-23] MEDS: FUROSEMIDE 40 MG TAB PO SCH (08:38)
[2023-07-23] MEDS: SENOKOT S TAB PO SCH ×2 (08:38→20:25)
[2023-07-23] MEDS: CARVedilol 12.5 MG TAB PO SCH ×2 (08:38→20:26)
[2023-07-23] MEDS: CEFDINIR 300 MG CAP (OMNICEF) PO SCH ×2 (08:38→20:25)
[2023-07-23] MEDS: BISACODYL 10MG SUPP PR SCH (08:39)
[2023-07-23] MEDS: INSULIN LISPRO (NovoLOG) PER UNIT SC SCH ×6 (08:39→20:27)
[2023-07-23] MEDS: TAMSULOSIN 0.4 MG CAP PO SCH (08:45)
[2023-07-23] MEDS ORDERED: PATIROMER SORBITEX CALCIUM 8.4 GM POWDER PACKET (VELTASSA) PO ONE ×4 (09:00→18:00)
[2023-07-23] MEDS ORDERED: CALCIUM GLUCONATE 1,000 MG in D5W MINI-BAG PLUS 100 ML IV ONE ×2 (09:00→12:00)
[2023-07-23] MEDS: FLUTICASONE PROP 0.05% NASAL SPRAY 16 GM (FLONASE) NARES SCH (09:59)
[2023-07-23] MEDS: guaiFENesin ER TABLET 600 MG TAB PO SCH ×2 (09:59→20:25)
[2023-07-23 11:52] VITALS: BP 127/80
[2023-07-23 14:00] VITALS: BP 162/82; TEMP 97.4; O2SAT 95
[2023-07-23 16:55] VITALS: BP 164/94
[2023-07-23 19:38] VITALS: BP 178/86; TEMP 97.6; O2SAT 93
[2023-07-23] MEDS ORDERED: HumuLIN R (REGULAR) INSULIN (NovoLIN R) **100U/ML** PER UNIT IV STA (19:39)
[2023-07-23] MEDS ORDERED: DEXTROSE 50% 50ML SYRINGE IV STA ×2 (19:39→19:56)
[2023-07-23] MEDS: ATORVASTATIN 20 MG TAB PO SCH (20:25)
[2023-07-23] MEDS: busPIRone 5 MG TAB PO SCH (20:25)
[2023-07-23] MEDS: LEVEMIR (INSULIN DETEMIR) 1 UNITS/0.01ML SC SCH (20:26)
[2023-07-24 00:05] VITALS: BP 168/90
[2023-07-24] MEDS: ISOSORBIDE DIN. (ISORDIL) 30 MG TAB PO SCH ×4 (00:07→17:16)
[2023-07-24] MEDS: **hydrALAZINE** 50 MG TAB PO SCH ×4 (00:08→17:16)
[2023-07-24] MEDS: PERCOCET 5MG/325MG TAB PO PRN ×4 (00:09→19:10)
[2023-07-24] MEDS: IPRATROPIUM 0.5MG/ALBUTEROL 2.5MG INH SOL UD 3ML (DUONEB) NEB SCH ×3 (01:50→13:56)
[2023-07-24 06:00] VITALS: BP 143/80; TEMP 98.2; O2SAT 95
[2023-07-24] MEDS: HEPARIN SOD (PORCINE) 5000UNITS/ML 1ML VIAL/SYRINGE SC SCH ×3 (06:02→21:14)
[2023-07-24] MEDS: methylPREDNISolone 40MG 1ML VIAL IV SCH (06:02)
[2023-07-24 06:41] LABS: HEMATOCRIT 30.8 % (42.0-52.0); HEMOGLOBIN 9.8 g/dl (13.5-17.5); MEAN CORPUSCULAR HEMOGLOBIN 26.9 pg (27.0-33.0); MEAN CORPUSCULAR HGB CONC 31.8 g/dl (32.0-36.5); MEAN CORPUSCULAR VOLUME 84.6 fl (80.0-96.0); PLATELET COUNT, AUTOMATED 329 10^3/uL (150-450); RED BLOOD COUNT 3.64 10^6/uL (4.30-6.10); WHITE BLOOD COUNT 16.5 10^3/uL (4.0-10.0)
[2023-07-24 07:05] LABS: BLOOD UREA NITROGEN 71 MG/DL (9-23); CARBON DIOXIDE LEVEL 23 MMOL/L (20-31); CHLORIDE LEVEL 107 MMOL/L (98-107); CREATININE FOR GFR 2.35 MG/DL (0.70-1.30); GLOMERULAR FILTRATION RATE 36.4 (>49); GLUCOSE, FASTING 400 MG/DL (74-106); MAGNESIUM LEVEL 2.1 MG/DL (1.8-2.4); SODIUM LEVEL 138 MMOL/L (136-145)
[2023-07-24] MEDS: CEFDINIR 300 MG CAP (OMNICEF) PO SCH (08:28)
[2023-07-24] MEDS: GABAPENTIN 300 MG CAP PO SCH ×3 (08:28→21:15)
[2023-07-24] MEDS: BACLOFEN 10 MG TAB PO SCH ×3 (08:28→21:15)
[2023-07-24] MEDS: CARVedilol 12.5 MG TAB PO SCH ×2 (08:28→21:15)
[2023-07-24] MEDS: allopurinoL 100 MG TAB PO SCH (08:28)
[2023-07-24] MEDS: TAMSULOSIN 0.4 MG CAP PO SCH (08:29)
[2023-07-24] MEDS: BISACODYL 10MG SUPP PR SCH (08:29)
[2023-07-24] MEDS: VENLAFAXINE **XR** 75MG CAPSULE PO SCH (08:29)
[2023-07-24] MEDS: FUROSEMIDE 40 MG TAB PO SCH (08:29)
[2023-07-24] MEDS: guaiFENesin ER TABLET 600 MG TAB PO SCH ×2 (08:29→21:14)
[2023-07-24] MEDS: CLOPIDOGREL 75 MG TAB PO SCH (08:29)
[2023-07-24] MEDS: FERROUS SULFATE 325MG TAB PO SCH ×2 (08:29→21:15)
[2023-07-24] MEDS: NIFEdipine 30MG XL TAB PO SCH (08:30)
[2023-07-24] MEDS: SENOKOT S TAB PO SCH ×2 (08:30→21:15)
[2023-07-24] MEDS: DOCUSATE SODIUM 100MG CAPSULE PO SCH (08:30)
[2023-07-24] MEDS: FLUTICASONE PROP 0.05% NASAL SPRAY 16 GM (FLONASE) NARES SCH (08:30)
[2023-07-24] MEDS: ASPIRIN 81MG CHEW TABLET PO SCH (08:30)
[2023-07-24] MEDS: INSULIN LISPRO (NovoLOG) PER UNIT SC SCH ×6 (09:49→21:16)
[2023-07-24] MEDS ORDERED: VARIBAR NECTAR 40% w/v 240ML SUSP BTL As Ordered ONE ×2 (10:27→11:38)
[2023-07-24] MEDS ORDERED: VARIBAR PUDDING 40% w/v 230ML TUBE As Ordered ONE (10:27)
[2023-07-24] MEDS ORDERED: E-Z-PAQUE 96% w/w SUSP 176GM BTL As Ordered ONE ×2 (10:27→11:39)
[2023-07-24] MEDS ORDERED: BARIUM SULFATE 700 MG TABLET (E-Z-DISK) As Ordered ONE (11:39)
[2023-07-24 12:46] LABS: C REACTIVE PROTEIN QUANTITATIV < 0.40 MG/DL (<1.0)
[2023-07-24 12:59] LABS: ERYTHROCYTE SEDIMENTATION RATE 33 mm/hr (0-20)
[2023-07-24] MEDS: predniSONE 10MG TAB PO SCH (13:02)
[2023-07-24] MEDS ORDERED: INSULIN LISPRO (NovoLOG) PER UNIT SC STA (13:15)
[2023-07-24 13:57] LABS: ACETONE/KETONE 0.08 MMOL/L (0.02-0.27)
[2023-07-24 14:00] VITALS: BP 160/72; TEMP 98; O2SAT 96
[2023-07-24] MEDS ORDERED: CALCIUM GLUCONATE 1,000 MG in D5W MINI-BAG PLUS 100 ML IV ONE (14:00)
[2023-07-24] MEDS ORDERED: COMBIVENT RESPIMAT 100-20MCG INHALER 4GM INH PRN (14:20)
[2023-07-24 14:32] LABS: HEMOGLOBIN A1c 7.8 % (4.0-6.0)
[2023-07-24] MEDS: PATIROMER SORBITEX CALCIUM 8.4 GM POWDER PACKET (VELTASSA) PO SCH (14:35)
[2023-07-24] MEDS ORDERED: INSULIN LISPRO (NovoLOG) PER UNIT SC SCH (17:30)
[2023-07-24 18:23] LABS: CALCIUM LEVEL 9.6 MG/DL (8.3-10.6); CREATININE FOR GFR 2.35 MG/DL (0.70-1.30); GLOMERULAR FILTRATION RATE 36.4 (>49); POTASSIUM SERUM 5.8 MMOL/L (3.5-5.1)
[2023-07-24] MEDS: COMBIVENT RESPIMAT 100-20MCG INHALER 4GM INH SCH (19:58)
[2023-07-24 20:00] VITALS: BP 172/94; TEMP 97.6; O2SAT 95
[2023-07-24] MEDS ORDERED: LEVEMIR (INSULIN DETEMIR) 1 UNITS/0.01ML SC SCH (21:00)
[2023-07-24] MEDS: busPIRone 5 MG TAB PO SCH (21:15)
[2023-07-24] MEDS: ATORVASTATIN 20 MG TAB PO SCH (21:15)
[2023-07-25] MEDS: **hydrALAZINE** 50 MG TAB PO SCH ×5 (00:13→23:59)
[2023-07-25] MEDS: ISOSORBIDE DIN. (ISORDIL) 30 MG TAB PO SCH ×5 (00:13→23:59)
[2023-07-25 01:08] LABS: CALCIUM LEVEL 9.5 MG/DL (8.3-10.6); CREATININE FOR GFR 2.44 MG/DL (0.70-1.30); GLOMERULAR FILTRATION RATE 34.9 (>49); POTASSIUM SERUM 5.8 MMOL/L (3.5-5.1)
[2023-07-25] MEDS ORDERED: INSULIN LISPRO (NovoLOG) PER UNIT SC STA (01:17)
[2023-07-25] MEDS: PERCOCET 5MG/325MG TAB PO PRN ×3 (01:25→20:40)
[2023-07-25] MEDS ORDERED: HumuLIN R (REGULAR) INSULIN (NovoLIN R) **100U/ML** PER UNIT IV STA (02:41)
[2023-07-25 06:00] VITALS: BP 135/90; TEMP 97.6; O2SAT 97
[2023-07-25] MEDS: HEPARIN SOD (PORCINE) 5000UNITS/ML 1ML VIAL/SYRINGE SC SCH ×3 (06:10→20:36)
[2023-07-25 07:33] LABS: HEMATOCRIT 32.1 % (42.0-52.0); HEMOGLOBIN 10.2 g/dl (13.5-17.5); MEAN CORPUSCULAR HEMOGLOBIN 26.9 pg (27.0-33.0); MEAN CORPUSCULAR HGB CONC 31.8 g/dl (32.0-36.5); MEAN CORPUSCULAR VOLUME 84.7 fl (80.0-96.0); PLATELET COUNT, AUTOMATED 321 10^3/uL (150-450); RED BLOOD COUNT 3.79 10^6/uL (4.30-6.10); WHITE BLOOD COUNT 18.2 10^3/uL (4.0-10.0)
[2023-07-25] MEDS: COMBIVENT RESPIMAT 100-20MCG INHALER 4GM INH SCH ×2 (07:43→19:43)
[2023-07-25 07:46] LABS: CALCIUM LEVEL 9.2 MG/DL (8.3-10.6); CREATININE FOR GFR 2.41 MG/DL (0.70-1.30); GLOMERULAR FILTRATION RATE 35.4 (>49); POTASSIUM SERUM 5.2 MMOL/L (3.5-5.1)
[2023-07-25] MEDS: INSULIN LISPRO (NovoLOG) PER UNIT SC SCH ×6 (08:49→20:32)
[2023-07-25] MEDS: VENLAFAXINE **XR** 75MG CAPSULE PO SCH (08:50)
[2023-07-25] MEDS: CARVedilol 12.5 MG TAB PO SCH ×2 (08:51→20:31)
[2023-07-25] MEDS: TAMSULOSIN 0.4 MG CAP PO SCH (08:51)
[2023-07-25] MEDS: NIFEdipine 30MG XL TAB PO SCH (08:51)
[2023-07-25] MEDS: DOCUSATE SODIUM 100MG CAPSULE PO SCH (08:52)
[2023-07-25] MEDS: SENOKOT S TAB PO SCH ×2 (08:53→20:32)
[2023-07-25] MEDS: CLOPIDOGREL 75 MG TAB PO SCH (08:53)
[2023-07-25] MEDS: guaiFENesin ER TABLET 600 MG TAB PO SCH ×2 (08:53→20:32)
[2023-07-25] MEDS: allopurinoL 100 MG TAB PO SCH (08:54)
[2023-07-25] MEDS: FERROUS SULFATE 325MG TAB PO SCH ×2 (08:54→20:32)
[2023-07-25] MEDS: GABAPENTIN 300 MG CAP PO SCH ×3 (08:55→20:31)
[2023-07-25] MEDS: BACLOFEN 10 MG TAB PO SCH ×3 (08:56→20:31)
[2023-07-25] MEDS: FUROSEMIDE 40 MG TAB PO SCH (08:56)
[2023-07-25] MEDS: ASPIRIN 81MG CHEW TABLET PO SCH (08:56)
[2023-07-25] MEDS: predniSONE 10MG TAB PO SCH (08:56)
[2023-07-25] MEDS: FLUTICASONE PROP 0.05% NASAL SPRAY 16 GM (FLONASE) NARES SCH (08:57)
[2023-07-25] MEDS: BISACODYL 10MG SUPP PR SCH (08:57)
[2023-07-25] MEDS ORDERED: PATIROMER SORBITEX CALCIUM 8.4 GM POWDER PACKET (VELTASSA) PO ONE (11:15)
[2023-07-25] MEDS: CHLORTHALIDONE 12.5MG PER 1/2 TABLET PO SCH (12:53)
[2023-07-25] MEDS: PATIROMER SORBITEX CALCIUM 8.4 GM POWDER PACKET (VELTASSA) PO SCH (12:54)
[2023-07-25 14:00] VITALS: BP 133/69; TEMP 97.5; O2SAT 100
[2023-07-25] MEDS ORDERED: LEVEMIR (INSULIN DETEMIR) 1 UNITS/0.01ML SC ONE (17:00)
[2023-07-25 19:59] VITALS: BP 165/88; TEMP 97.7; O2SAT 94
[2023-07-25] MEDS: ATORVASTATIN 20 MG TAB PO SCH (20:31)
[2023-07-25] MEDS: busPIRone 5 MG TAB PO SCH (20:31)
[2023-07-25] MEDS ORDERED: LEVEMIR (INSULIN DETEMIR) 1 UNITS/0.01ML SC SCH ×3 (21:00)
[2023-07-25 23:52] VITALS: BP 145/86
[2023-07-26 05:15] VITALS: BP 154/86; TEMP 98.4; O2SAT 97
[2023-07-26] MEDS: HEPARIN SOD (PORCINE) 5000UNITS/ML 1ML VIAL/SYRINGE SC SCH ×3 (05:28→21:20)
[2023-07-26] MEDS: **hydrALAZINE** 50 MG TAB PO SCH ×3 (05:28→17:10)
[2023-07-26] MEDS: ISOSORBIDE DIN. (ISORDIL) 30 MG TAB PO SCH ×3 (05:28→17:10)
[2023-07-26] MEDS: PERCOCET 5MG/325MG TAB PO PRN ×3 (05:29→21:20)
[2023-07-26 06:51] LABS: HEMATOCRIT 32.3 % (42.0-52.0); HEMOGLOBIN 10.3 g/dl (13.5-17.5); MEAN CORPUSCULAR HGB CONC 31.9 g/dl (32.0-36.5); MEAN CORPUSCULAR VOLUME 84.6 fl (80.0-96.0); PLATELET COUNT, AUTOMATED 323 10^3/uL (150-450); RED BLOOD COUNT 3.82 10^6/uL (4.30-6.10); WHITE BLOOD COUNT 18.7 10^3/uL (4.0-10.0)
[2023-07-26 07:23] LABS: CALCIUM LEVEL 9.1 MG/DL (8.3-10.6); CREATININE FOR GFR 2.56 MG/DL (0.70-1.30); MAGNESIUM LEVEL 1.8 MG/DL (1.8-2.4); PERCENT SATURATION 33.1 % (19.7-50.0); POTASSIUM SERUM 4.9 MMOL/L (3.5-5.1)
[2023-07-26 07:25] LABS: FERRITIN 73.8 NG/ML (10.5-307.3)
[2023-07-26] MEDS: COMBIVENT RESPIMAT 100-20MCG INHALER 4GM INH SCH ×2 (07:25→20:09)
[2023-07-26] MEDS: BISACODYL 10MG SUPP PR SCH (09:00)
[2023-07-26] MEDS: CLOPIDOGREL 75 MG TAB PO SCH (09:04)
[2023-07-26] MEDS: FUROSEMIDE 20 MG TAB PO SCH (09:04)
[2023-07-26] MEDS: INSULIN LISPRO (NovoLOG) PER UNIT SC SCH ×6 (09:04→21:00)
[2023-07-26] MEDS: DOCUSATE SODIUM 100MG CAPSULE PO SCH (09:04)
[2023-07-26] MEDS: FERROUS SULFATE 325MG TAB PO SCH ×2 (09:04→21:20)
[2023-07-26] MEDS: TAMSULOSIN 0.4 MG CAP PO SCH (09:04)
[2023-07-26] MEDS: VENLAFAXINE **XR** 75MG CAPSULE PO SCH (09:05)
[2023-07-26] MEDS: CARVedilol 12.5 MG TAB PO SCH ×2 (09:06→21:20)
[2023-07-26] MEDS: SENOKOT S TAB PO SCH ×2 (09:06→21:20)
[2023-07-26] MEDS: GABAPENTIN 300 MG CAP PO SCH ×3 (09:06→21:19)
[2023-07-26] MEDS: ASPIRIN 81MG CHEW TABLET PO SCH (09:06)
[2023-07-26] MEDS: predniSONE 10MG TAB PO SCH (09:07)
[2023-07-26] MEDS: allopurinoL 100 MG TAB PO SCH (09:07)
[2023-07-26] MEDS: BACLOFEN 10 MG TAB PO SCH ×3 (09:07→21:20)
[2023-07-26] MEDS: guaiFENesin ER TABLET 600 MG TAB PO SCH ×2 (09:07→21:19)
[2023-07-26] MEDS: CHLORTHALIDONE 12.5MG PER 1/2 TABLET PO SCH (09:07)
[2023-07-26] MEDS: FLUTICASONE PROP 0.05% NASAL SPRAY 16 GM (FLONASE) NARES SCH (09:09)
[2023-07-26] MEDS: NIFEdipine 30MG XL TAB PO SCH (09:18)
[2023-07-26] MEDS ORDERED: LEVEMIR (INSULIN DETEMIR) 1 UNITS/0.01ML SC ONE (11:00)
[2023-07-26] MEDS ORDERED: INSULIN LISPRO (NovoLOG) PER UNIT SC ONE ×3 (11:00→17:00)
[2023-07-26 11:33] LABS: CREATININE FOR GFR 2.47 MG/DL (0.70-1.30); GLOMERULAR FILTRATION RATE 34.4 (>49)
[2023-07-26] MEDS ORDERED: INSULIN LISPRO (NovoLOG) PER UNIT SC SCH (12:00)
[2023-07-26] MEDS ORDERED: cloNIDine 0.1MG TABLET PO ONE (12:00)
[2023-07-26 12:09] LABS: ACETONE/KETONE 0.07 MMOL/L (0.02-0.27)
[2023-07-26] MEDS: PATIROMER SORBITEX CALCIUM 8.4 GM POWDER PACKET (VELTASSA) PO SCH (13:09)
[2023-07-26 14:00] VITALS: BP 117/68; TEMP 97.5; O2SAT 99
[2023-07-26] MEDS ORDERED: CHLO125TA PO (19:27)
[2023-07-26] MEDS ORDERED: VELT1POW PO (19:27)
[2023-07-26] MEDS ORDERED: FURO20TA2 PO (19:27)
[2023-07-26] MEDS ORDERED: LEVEMIR (INSULIN DETEMIR) 1 UNITS/0.01ML SC SCH ×2 (21:00)
[2023-07-26] MEDS: LEVEMIR (INSULIN DETEMIR) 1 UNITS/0.01ML SC SCH (21:00)
[2023-07-26 21:08] VITALS: BP 140/75; TEMP 97.3; O2SAT 98
[2023-07-26] MEDS: ATORVASTATIN 20 MG TAB PO SCH (21:19)
[2023-07-26] MEDS: busPIRone 5 MG TAB PO SCH (21:19)
[2023-07-27] MEDS: ISOSORBIDE DIN. (ISORDIL) 30 MG TAB PO SCH ×4 (00:04→18:13)
[2023-07-27] MEDS: **hydrALAZINE** 50 MG TAB PO SCH ×4 (00:04→16:49)
[2023-07-27 05:49] VITALS: BP 162/84; TEMP 97.8; O2SAT 99
[2023-07-27] MEDS: HEPARIN SOD (PORCINE) 5000UNITS/ML 1ML VIAL/SYRINGE SC SCH ×3 (05:51→21:28)
[2023-07-27 06:25] LABS: HEMATOCRIT 33.1 % (42.0-52.0); HEMOGLOBIN 10.5 g/dl (13.5-17.5); MEAN CORPUSCULAR HEMOGLOBIN 26.6 pg (27.0-33.0); MEAN CORPUSCULAR HGB CONC 31.7 g/dl (32.0-36.5); PLATELET COUNT, AUTOMATED 314 10^3/uL (150-450); RED BLOOD COUNT 3.94 10^6/uL (4.30-6.10); WHITE BLOOD COUNT 17.6 10^3/uL (4.0-10.0)
[2023-07-27] MEDS ORDERED: LANTINJ4 SC (07:05)
[2023-07-27] MEDS ORDERED: VELT1POW PO (07:08)
[2023-07-27] MEDS ORDERED: CHLO125TA PO (07:08)
[2023-07-27] MEDS ORDERED: FURO20TA2 PO (07:08)
[2023-07-27] MEDS ORDERED: INSULIN LISPRO (NovoLOG) PER UNIT SC STA (07:10)
[2023-07-27] MEDS: COMBIVENT RESPIMAT 100-20MCG INHALER 4GM INH SCH ×2 (07:26→19:38)
[2023-07-27] MEDS: INSULIN LISPRO (NovoLOG) PER UNIT SC SCH ×7 (07:27→21:00)
[2023-07-27] MEDS: PERCOCET 5MG/325MG TAB PO PRN ×3 (07:35→21:41)
[2023-07-27] MEDS: BISACODYL 10MG SUPP PR SCH (09:00)
[2023-07-27] MEDS: GABAPENTIN 300 MG CAP PO SCH ×3 (09:52→21:30)
[2023-07-27] MEDS: VENLAFAXINE **XR** 75MG CAPSULE PO SCH (09:52)
[2023-07-27] MEDS: allopurinoL 100 MG TAB PO SCH (09:52)
[2023-07-27] MEDS: DOCUSATE SODIUM 100MG CAPSULE PO SCH (09:53)
[2023-07-27] MEDS: CHLORTHALIDONE 12.5MG PER 1/2 TABLET PO SCH (09:53)
[2023-07-27] MEDS: predniSONE 10MG TAB PO SCH (09:53)
[2023-07-27] MEDS: SENOKOT S TAB PO SCH ×2 (09:53→21:31)
[2023-07-27] MEDS: CLOPIDOGREL 75 MG TAB PO SCH (09:54)
[2023-07-27] MEDS: guaiFENesin ER TABLET 600 MG TAB PO SCH ×2 (09:54→21:30)
[2023-07-27] MEDS: CARVedilol 12.5 MG TAB PO SCH ×2 (09:54→21:30)
[2023-07-27] MEDS: BACLOFEN 10 MG TAB PO SCH ×3 (09:54→21:31)
[2023-07-27] MEDS: TAMSULOSIN 0.4 MG CAP PO SCH (09:54)
[2023-07-27] MEDS: FUROSEMIDE 20 MG TAB PO SCH (09:54)
[2023-07-27] MEDS: FERROUS SULFATE 325MG TAB PO SCH ×2 (09:55→21:31)
[2023-07-27] MEDS: SITagliptin 50 MG TAB (JANUVIA) PO SCH (09:55)
[2023-07-27] MEDS: ASPIRIN 81MG CHEW TABLET PO SCH (09:55)
[2023-07-27] MEDS: FLUTICASONE PROP 0.05% NASAL SPRAY 16 GM (FLONASE) NARES SCH (09:56)
[2023-07-27] MEDS: LEVEMIR (INSULIN DETEMIR) 1 UNITS/0.01ML SC SCH ×2 (10:04→21:28)
[2023-07-27] MEDS: NIFEdipine 30MG XL TAB PO SCH (10:05)
[2023-07-27 14:10] VITALS: BP 128/78; TEMP 96.9; O2SAT 100
[2023-07-27 16:25] VITALS: BP 148/93; TEMP 97.7; O2SAT 97
[2023-07-27 19:53] VITALS: BP 148/94; TEMP 98.1
[2023-07-27] MEDS: ATORVASTATIN 20 MG TAB PO SCH (21:30)
[2023-07-27] MEDS: busPIRone 5 MG TAB PO SCH (21:30)
[2023-07-28] MEDS: ISOSORBIDE DIN. (ISORDIL) 30 MG TAB PO SCH ×4 (00:52→17:59)
[2023-07-28] MEDS: **hydrALAZINE** 50 MG TAB PO SCH ×4 (00:53→18:00)
[2023-07-28] MEDS: HEPARIN SOD (PORCINE) 5000UNITS/ML 1ML VIAL/SYRINGE SC SCH ×3 (06:05→21:20)
[2023-07-28 06:37] LABS: HEMATOCRIT 32.3 % (42.0-52.0); HEMOGLOBIN 10.7 g/dl (13.5-17.5); MEAN CORPUSCULAR HEMOGLOBIN 27.4 pg (27.0-33.0); MEAN CORPUSCULAR HGB CONC 33.1 g/dl (32.0-36.5); MEAN CORPUSCULAR VOLUME 82.6 fl (80.0-96.0); PLATELET COUNT, AUTOMATED 302 10^3/uL (150-450); RED BLOOD COUNT 3.91 10^6/uL (4.30-6.10); WHITE BLOOD COUNT 17.2 10^3/uL (4.0-10.0)
[2023-07-28 06:45] VITALS: BP 140/86; TEMP 98.1; O2SAT 96
[2023-07-28] MEDS: COMBIVENT RESPIMAT 100-20MCG INHALER 4GM INH SCH ×2 (08:04→19:31)
[2023-07-28] MEDS: INSULIN LISPRO (NovoLOG) PER UNIT SC SCH ×7 (08:39→20:41)
[2023-07-28] MEDS: BISACODYL 10MG SUPP PR SCH (09:00)
[2023-07-28] MEDS: LEVEMIR (INSULIN DETEMIR) 1 UNITS/0.01ML SC SCH ×2 (09:00→20:36)
[2023-07-28] MEDS: TAMSULOSIN 0.4 MG CAP PO SCH (09:45)
[2023-07-28] MEDS: VENLAFAXINE **XR** 75MG CAPSULE PO SCH (09:45)
[2023-07-28] MEDS: guaiFENesin ER TABLET 600 MG TAB PO SCH ×2 (09:45→20:38)
[2023-07-28] MEDS: allopurinoL 100 MG TAB PO SCH (09:45)
[2023-07-28] MEDS: predniSONE 10MG TAB PO SCH (09:46)
[2023-07-28] MEDS: GABAPENTIN 300 MG CAP PO SCH ×3 (09:46→20:37)
[2023-07-28] MEDS: SENOKOT S TAB PO SCH ×2 (09:46→20:40)
[2023-07-28] MEDS: BACLOFEN 10 MG TAB PO SCH ×3 (09:46→20:37)
[2023-07-28] MEDS: DOCUSATE SODIUM 100MG CAPSULE PO SCH (09:46)
[2023-07-28] MEDS: ASPIRIN 81MG CHEW TABLET PO SCH (09:46)
[2023-07-28] MEDS: FERROUS SULFATE 325MG TAB PO SCH ×2 (09:46→20:38)
[2023-07-28] MEDS: CHLORTHALIDONE 12.5MG PER 1/2 TABLET PO SCH (09:47)
[2023-07-28] MEDS: SITagliptin 50 MG TAB (JANUVIA) PO SCH (09:47)
[2023-07-28] MEDS: CARVedilol 12.5 MG TAB PO SCH ×2 (09:50→20:38)
[2023-07-28] MEDS: FUROSEMIDE 20 MG TAB PO SCH (09:50)
[2023-07-28] MEDS: NIFEdipine 30MG XL TAB PO SCH (09:50)
[2023-07-28] MEDS: CLOPIDOGREL 75 MG TAB PO SCH (09:50)
[2023-07-28] MEDS: FLUTICASONE PROP 0.05% NASAL SPRAY 16 GM (FLONASE) NARES SCH (09:53)
[2023-07-28] MEDS ORDERED: CALCIUM GLUCONATE 1,000 MG in D5W MINI-BAG PLUS 100 ML IV ONE (11:00)
[2023-07-28 12:29] LABS: CALCIUM LEVEL 9.4 MG/DL (8.8-10.2); CREATININE FOR GFR 2.6 MG/DL (0.7-1.5); GLOMERULAR FILTRATION RATE 32.4 (>49); POTASSIUM SERUM 5.4 MEQ/L (3.6-5.0)
[2023-07-28 12:30] LABS: MAGNESIUM LEVEL 1.8 MG/DL (1.7-2.2)
[2023-07-28] MEDS: PATIROMER SORBITEX CALCIUM 8.4 GM POWDER PACKET (VELTASSA) PO SCH (12:52)
[2023-07-28 14:00] VITALS: BP 144/89; TEMP 97.7; O2SAT 96
[2023-07-28] MEDS: PERCOCET 5MG/325MG TAB PO PRN ×2 (15:18→21:20)
[2023-07-28 19:53] VITALS: BP 152/90; TEMP 98.1; O2SAT 98
[2023-07-28] MEDS: ATORVASTATIN 20 MG TAB PO SCH (20:37)
[2023-07-28] MEDS: busPIRone 5 MG TAB PO SCH (20:38)
[2023-07-28] MEDS: FINASTERIDE 5MG TAB PO SCH (20:38)
[2023-07-29] MEDS: ISOSORBIDE DIN. (ISORDIL) 30 MG TAB PO SCH ×4 (00:23→17:39)
[2023-07-29] MEDS: **hydrALAZINE** 50 MG TAB PO SCH ×4 (00:24→17:40)
[2023-07-29 05:40] LABS: HEMATOCRIT 29.6 % (42.0-52.0); HEMOGLOBIN 9.7 g/dl (13.5-17.5); MEAN CORPUSCULAR HEMOGLOBIN 27.1 pg (27.0-33.0); MEAN CORPUSCULAR HGB CONC 32.8 g/dl (32.0-36.5); MEAN CORPUSCULAR VOLUME 82.7 fl (80.0-96.0); PLATELET COUNT, AUTOMATED 275 10^3/uL (150-450); RED BLOOD COUNT 3.58 10^6/uL (4.30-6.10); WHITE BLOOD COUNT 14.5 10^3/uL (4.0-10.0)
[2023-07-29 06:00] VITALS: BP 116/69; TEMP 97.9; O2SAT 99
[2023-07-29] MEDS: HEPARIN SOD (PORCINE) 5000UNITS/ML 1ML VIAL/SYRINGE SC SCH ×3 (06:00→21:34)
[2023-07-29] MEDS: COMBIVENT RESPIMAT 100-20MCG INHALER 4GM INH SCH ×2 (07:15→19:19)
[2023-07-29] MEDS ORDERED: VELT1POW3 PO (07:45)
[2023-07-29] MEDS ORDERED: FINA-48 PO (07:45)
[2023-07-29] MEDS: ASPIRIN 81MG CHEW TABLET PO SCH (08:30)
[2023-07-29] MEDS: DOCUSATE SODIUM 100MG CAPSULE PO SCH (08:30)
[2023-07-29] MEDS: NIFEdipine 30MG XL TAB PO SCH (08:31)
[2023-07-29] MEDS: predniSONE 10MG TAB PO SCH (08:31)
[2023-07-29] MEDS: VENLAFAXINE **XR** 75MG CAPSULE PO SCH (08:31)
[2023-07-29] MEDS: SENOKOT S TAB PO SCH ×2 (08:31→21:35)
[2023-07-29] MEDS: BACLOFEN 10 MG TAB PO SCH ×3 (08:33→21:35)
[2023-07-29] MEDS: GABAPENTIN 300 MG CAP PO SCH ×3 (08:33→21:36)
[2023-07-29] MEDS: CHLORTHALIDONE 12.5MG PER 1/2 TABLET PO SCH (08:33)
[2023-07-29] MEDS: allopurinoL 100 MG TAB PO SCH (08:34)
[2023-07-29] MEDS: TAMSULOSIN 0.4 MG CAP PO SCH (08:34)
[2023-07-29] MEDS: SITagliptin 50 MG TAB (JANUVIA) PO SCH (08:34)
[2023-07-29] MEDS: CARVedilol 12.5 MG TAB PO SCH ×2 (08:34→21:35)
[2023-07-29] MEDS: FUROSEMIDE 20 MG TAB PO SCH (08:34)
[2023-07-29] MEDS: CLOPIDOGREL 75 MG TAB PO SCH (08:35)
[2023-07-29] MEDS: guaiFENesin ER TABLET 600 MG TAB PO SCH ×2 (08:35→21:34)
[2023-07-29] MEDS: FERROUS SULFATE 325MG TAB PO SCH ×2 (08:35→21:35)
[2023-07-29] MEDS: LEVEMIR (INSULIN DETEMIR) 1 UNITS/0.01ML SC SCH ×2 (08:36→21:33)
[2023-07-29] MEDS: INSULIN LISPRO (NovoLOG) PER UNIT SC SCH ×7 (08:37→21:00)
[2023-07-29] MEDS: BISACODYL 10MG SUPP PR SCH (08:43)
[2023-07-29] MEDS: FLUTICASONE PROP 0.05% NASAL SPRAY 16 GM (FLONASE) NARES SCH (08:43)
[2023-07-29 09:23] LABS: CALCIUM LEVEL 9.4 MG/DL (8.8-10.2); CREATININE FOR GFR 2.6 MG/DL (0.7-1.5); GLOMERULAR FILTRATION RATE 32.4 (>49); POTASSIUM SERUM 4.9 MEQ/L (3.6-5.0)
[2023-07-29 09:28] LABS: CREATININE FOR GFR 2.8 MG/DL (0.7-1.5); GLOMERULAR FILTRATION RATE 29.8 (>49)
[2023-07-29 09:29] LABS: CALCIUM LEVEL 9.3 MG/DL (8.8-10.2)
[2023-07-29 11:52] VITALS: BP 138/88
[2023-07-29] MEDS: PATIROMER SORBITEX CALCIUM 8.4 GM POWDER PACKET (VELTASSA) PO SCH (12:09)
[2023-07-29] MEDS: PERCOCET 5MG/325MG TAB PO PRN (12:19)
[2023-07-29 14:00] VITALS: BP 134/82; TEMP 97.3; O2SAT 98
[2023-07-29] MEDS: busPIRone 5 MG TAB PO SCH (21:34)
[2023-07-29] MEDS: FINASTERIDE 5MG TAB PO SCH (21:35)
[2023-07-29] MEDS: ATORVASTATIN 20 MG TAB PO SCH (21:35)
[2023-07-29 22:00] VITALS: BP 139/83; TEMP 97.7; O2SAT 97
[2023-07-30] MEDS: ISOSORBIDE DIN. (ISORDIL) 30 MG TAB PO SCH ×2 (00:48→05:30)
[2023-07-30] MEDS: **hydrALAZINE** 50 MG TAB PO SCH ×2 (00:49→05:30)
[2023-07-30 05:25] LABS: HEMATOCRIT 33.1 % (42.0-52.0); HEMOGLOBIN 10.5 g/dl (13.5-17.5); MEAN CORPUSCULAR HEMOGLOBIN 26.7 pg (27.0-33.0); MEAN CORPUSCULAR HGB CONC 31.7 g/dl (32.0-36.5); MEAN CORPUSCULAR VOLUME 84.2 fl (80.0-96.0); PLATELET COUNT, AUTOMATED 275 10^3/uL (150-450); RED BLOOD COUNT 3.93 10^6/uL (4.30-6.10); WHITE BLOOD COUNT 15.3 10^3/uL (4.0-10.0)
[2023-07-30] MEDS: HEPARIN SOD (PORCINE) 5000UNITS/ML 1ML VIAL/SYRINGE SC SCH (05:30)
[2023-07-30 06:00] VITALS: BP 141/88; TEMP 98.1; O2SAT 99
[2023-07-30] MEDS: COMBIVENT RESPIMAT 100-20MCG INHALER 4GM INH SCH (07:18)
[2023-07-30] MEDS: PERCOCET 5MG/325MG TAB PO PRN (09:00)
[2023-07-30] MEDS: CHLORTHALIDONE 12.5MG PER 1/2 TABLET PO SCH (09:02)
[2023-07-30] MEDS: CLOPIDOGREL 75 MG TAB PO SCH (09:02)
[2023-07-30] MEDS: CARVedilol 12.5 MG TAB PO SCH (09:02)
[2023-07-30] MEDS: FUROSEMIDE 20 MG TAB PO SCH (09:02)
[2023-07-30 09:03] VITALS: BP 140/86
[2023-07-30] MEDS: guaiFENesin ER TABLET 600 MG TAB PO SCH (09:03)
[2023-07-30] MEDS: VENLAFAXINE **XR** 75MG CAPSULE PO SCH (09:03)
[2023-07-30] MEDS: ASPIRIN 81MG CHEW TABLET PO SCH (09:03)
[2023-07-30] MEDS: NIFEdipine 30MG XL TAB PO SCH (09:03)
[2023-07-30] MEDS: allopurinoL 100 MG TAB PO SCH (09:04)
[2023-07-30] MEDS: SENOKOT S TAB PO SCH (09:04)
[2023-07-30] MEDS: SITagliptin 50 MG TAB (JANUVIA) PO SCH (09:04)
[2023-07-30] MEDS: TAMSULOSIN 0.4 MG CAP PO SCH (09:04)
[2023-07-30] MEDS: predniSONE 10MG TAB PO SCH (09:04)
[2023-07-30] MEDS: BACLOFEN 10 MG TAB PO SCH (09:04)
[2023-07-30] MEDS: GABAPENTIN 300 MG CAP PO SCH (09:04)
[2023-07-30] MEDS: DOCUSATE SODIUM 100MG CAPSULE PO SCH (09:04)
[2023-07-30] MEDS: FERROUS SULFATE 325MG TAB PO SCH (09:04)
[2023-07-30] MEDS: BISACODYL 10MG SUPP PR SCH (09:04)
[2023-07-30] MEDS: INSULIN LISPRO (NovoLOG) PER UNIT SC SCH ×2 (09:05)
[2023-07-30] MEDS: FLUTICASONE PROP 0.05% NASAL SPRAY 16 GM (FLONASE) NARES SCH (09:06)
[2023-07-30] MEDS: LEVEMIR (INSULIN DETEMIR) 1 UNITS/0.01ML SC SCH (09:06)
[2023-07-30 14:07] LABS: BLOOD UREA NITROGEN 77 MG/DL (7-21); CREATININE FOR GFR 2.4 MG/DL (0.7-1.5); GLOMERULAR FILTRATION RATE > 60.0 (>49); GLUCOSE, FASTING 144 MG/DL; POTASSIUM SERUM 5.3 MEQ/L (3.6-5.0); SODIUM LEVEL 137 MEQ/L (134-153)
[2023-07-30 14:08] LABS: CALCIUM LEVEL 9.4 MG/DL (8.8-10.2); CARBON DIOXIDE LEVEL 18 MEQ/L (22-30); CHLORIDE LEVEL 106 MEQ/L (98-107)
[2023-07-31 14:30] LABS: CREATININE FOR GFR 2.5 MG/DL (0.7-1.5); GLOMERULAR FILTRATION RATE 33.9 (>49)
== END 2023-07-30 12:15 | disposition home or self-care (01) | DRG 640 ==
LOC: M ED 18:05 → EDBD 18:05 → M ED INP 18:06 → M MS4PR 07-21 00:55 → OBSVTOIN 07-24 12:23 → M MS4PR 07-27 16:11 → M MS5PR 07-27 16:15
PROVIDERS: ADMIT Internal Medicine; ATTEND General Practice
DX: E87.5 Hyperkalemia (principal); J15.69 Pneumonia due to other Gram-negative bacteria; I69.351 Hemiplegia and hemiparesis following cerebral infarction affecting right dominant side; J45.901 Unspecified asthma with (acute) exacerbation; N17.9 Acute kidney failure, unspecified; E11.65 Type 2 diabetes mellitus with hyperglycemia; I16.0 Hypertensive urgency; N18.32 Chronic kidney disease, stage 3b; I12.9 Hypertensive chronic kidney disease with stage 1 through stage 4 chronic kidney disease, or unspecified chronic kidney disease; E11.22 Type 2 diabetes mellitus with diabetic chronic kidney disease; G93.0 Cerebral cysts; E78.5 Hyperlipidemia, unspecified; I25.10 Atherosclerotic heart disease of native coronary artery without angina pectoris; K59.00 Constipation, unspecified; R13.10 Dysphagia, unspecified; N13.9 Obstructive and reflux uropathy, unspecified; R33.9 Retention of urine, unspecified; E87.70 Fluid overload, unspecified; N40.1 Benign prostatic hyperplasia with lower urinary tract symptoms; F41.9 Anxiety disorder, unspecified; F32.A Depression, unspecified; Z86.73 Personal history of transient ischemic attack (TIA), and cerebral infarction without residual deficits; Z87.891 Personal history of nicotine dependence; Z79.82 Long term (current) use of aspirin; Z79.899 Other long term (current) drug therapy; Z79.4 Long term (current) use of insulin; E87.20 Acidosis, unspecified

== ENCOUNTER → 2023-10-10 | Outpatient (REF) | payer MEDICARE, OTHER ==
[~2023-10-10] MED LIST changes: +CEFD1CAP9 PO; -CEFD300C42 PO; +FINA-48 PO; -FLUT50SP17 NARES; +FLUTISP NARES; +FURO20TA2 PO; +HYDR-3911 PO; +VELT1POW PO; +VELT1POW3 PO
== END ==
LOC: M LAB REF 22:11
PROVIDERS: ATTEND Physician Assistant
DX: R05.9 Cough, unspecified (principal)

== ENCOUNTER → 2024-02-11 | Outpatient (REF) | payer MEDICARE, OTHER ==
[~2024-02-11] MED LIST changes: -HYDR-3910 PO; -HYDR-3911 PO; -HYDR25TA PO; +HYDR25TA87 PO; +HYDR25TA88 PO; -HYDR50TA PO; +HYDR50TA46 PO; +HYDR50TA47 PO; -KLON1TAB PO; +KLON1TAB13 PO
[2024-02-12 12:09] LABS: PERCENT SATURATION 26.3 % (19.7-50.0)
== END ==
LOC: M LAB REF 17:14
PROVIDERS: ATTEND Internal Medicine Nephrology
DX: D50.9 Iron deficiency anemia, unspecified (principal)

== ENCOUNTER 2024-03-11 16:10 | Outpatient (CLI) | payer MEDICARE, OTHER ==
[~2024-03-11] VITALS: Ht 175.3 cm; Wt 95.5 kg
[2024-03-11 16:10] VITALS: BP_SYST 78; O2SAT 98
[~2024-03-11 16:10] MED LIST changes: +ALBUTEROL SULFATE 2.5MG/0.5ML INH NEB SOLN INH PRN; +EPINEPHrine INJ 1 MG/ML 1ML AMP IM PRN; +NS 1,000 ML IV SCH; +diphenhydrAMINE 50MG/ML VIAL IV PRN; +methylPREDNISolone 125MG 2ML VIAL IV PRN
[2024-03-11] MEDS: FERRIC CARBOXYMALTOSE INJ 750 MG in NS 250 ML (>50kg) IV ONE (16:20)
== END 2024-03-11 17:10 | disposition home or self-care (01) ==
LOC: M INFU 16:10
PROVIDERS: ATTEND Internal Medicine Nephrology
DX: D50.9 Iron deficiency anemia, unspecified (principal)
CPT/HCPCS: 96365; J1439

== ENCOUNTER → 2024-03-18 | Outpatient (CLI) | payer MEDICARE, OTHER ==
[~2024-03-18] MED LIST changes: +FERRIC CARBOXYMALTOSE INJ 750 MG in NS 250 ML (>50kg) IV ONE
== END ==
LOC: M INFU 15:30
PROVIDERS: ATTEND Internal Medicine Nephrology
DX: D50.9 Iron deficiency anemia, unspecified (principal)

== ENCOUNTER 2024-04-22 11:15 | Emergency (ER) | payer MEDICARE ==
[~2024-04-22] VITALS: Ht 177.8 cm; Wt 96.9 kg
[~2024-04-22 11:15] MED LIST changes: -ALBUTEROL SULFATE 2.5MG/0.5ML INH NEB SOLN INH PRN; -EPINEPHrine INJ 1 MG/ML 1ML AMP IM PRN; -FERRIC CARBOXYMALTOSE INJ 750 MG in NS 250 ML (>50kg) IV ONE; -NS 1,000 ML IV SCH; -diphenhydrAMINE 50MG/ML VIAL IV PRN; -methylPREDNISolone 125MG 2ML VIAL IV PRN
[2024-04-22] MEDS ORDERED: ISOVUE-370 76% 100ML VIAL As Ordered ONE (11:38)
[2024-04-22 11:52] LABS: BASO # 0.1 10^3/uL (0.0-0.2); BASO % 0.5 % (0.0-1.0); EOS # 0.5 10^3/uL (0.0-0.5); HEMATOCRIT 33.7 % (42.0-52.0); HEMOGLOBIN 10.4 g/dl (13.5-17.5); LYMPH # 2.9 10^3/uL (1.5-5.0); LYMPH % 31.2 % (24.0-44.0); MEAN CORPUSCULAR HEMOGLOBIN 26.7 pg (27.0-33.0); MEAN CORPUSCULAR HGB CONC 30.9 g/dl (32.0-36.5); MEAN CORPUSCULAR VOLUME 86.6 fl (80.0-96.0); MONO # 0.9 10^3/uL (0.0-0.8); MONO % 9.5 % (2.0-8.0); NEUTROPHILS # 4.9 10^3/uL (1.5-8.5); NEUTROPHILS % 53.4 % (36.0-66.0); PLATELET COUNT, AUTOMATED 321 10^3/uL (150-450); RED BLOOD COUNT 3.89 10^6/uL (4.30-6.10); WHITE BLOOD COUNT 9.2 10^3/uL (4.0-10.0)
[2024-04-22 11:58] VITALS: BP 117/68; O2SAT 95
[2024-04-22 12:14] LABS: LIPASE 59 U/L (12-53)
[2024-04-22 12:16] LABS: ALBUMIN 3.4 G/DL (3.2-5.2); ALKALINE PHOSPHATASE 120 U/L (46-116); ALT/SGPT 42 U/L (7.0-40); AST/SGOT 56 U/L (<34); BILIRUBIN,DIRECT < 0.1 MG/DL (<0.4); BILIRUBIN,TOTAL < 0.2 MG/DL (0.3-1.2); BLOOD UREA NITROGEN 31 MG/DL (9-23); CALCIUM LEVEL 9.1 MG/DL (8.3-10.6); CARBON DIOXIDE LEVEL 21 MMOL/L (20-31); CHLORIDE LEVEL 114 MMOL/L (98-107); CREATININE FOR GFR 2.55 MG/DL (0.70-1.30); GLOMERULAR FILTRATION RATE 33.2 (>49); GLUCOSE, FASTING 117 MG/DL (74-106); POTASSIUM SERUM 5.4 MMOL/L (3.5-5.1); SODIUM LEVEL 144 MMOL/L (136-145)
[2024-04-22] MEDS: SODIUM CHLORIDE 0.9% INJ 10 ML SYR IV ONE ×2 (12:30→12:32)
[2024-04-22 12:33] LABS: INR 0.97; PARTIAL THROMBOPLASTIN TIME 25.5 SECONDS (24.8-34.2); PROTHROMBIN TIME 12.6 SECONDS (12.5-14.5)
[2024-04-22] MEDS: TENECTEPLASE 50 MG/10 ML VIAL IVP ONE (12:33)
[2024-04-22 12:40] VITALS: BP 121/71
[2024-04-22 12:55] VITALS: BP 129/77; O2SAT 96
[2024-04-22 13:10] VITALS: O2SAT 96
[2024-04-22 13:30] VITALS: O2SAT 96
[2024-04-22] MEDS ORDERED: LABETALOL 100MG/20ML VIAL As Ordered ONE (14:04)
[2024-04-22 14:12] VITALS: BP 144/76; TEMP 97; O2SAT 96
== END 2024-04-22 14:18 | disposition short-term general hospital (02) ==
LOC: M ED 11:15
DX: I63.9 Cerebral infarction, unspecified (principal); G93.0 Cerebral cysts; K59.00 Constipation, unspecified; I25.2 Old myocardial infarction; I10 Essential (primary) hypertension; E11.9 Type 2 diabetes mellitus without complications; F32.A Depression, unspecified; F41.9 Anxiety disorder, unspecified; N18.30 Chronic kidney disease, stage 3 unspecified; Z86.79 Personal history of other diseases of the circulatory system; Z79.82 Long term (current) use of aspirin; Z79.02 Long term (current) use of antithrombotics/antiplatelets; Z79.4 Long term (current) use of insulin; Z79.899 Other long term (current) drug therapy
CPT/HCPCS: 70450; 71045; 80047; 80048; 80076; 83690; 85025; 85610; 85730; 93005; 93041; 94760; 96374; 96375; 99285; J3101

== ENCOUNTER 2024-08-04 16:23 | Emergency (ER) | payer MEDICARE ==
[~2024-08-04] VITALS: Ht 175.3 cm; Wt 90.9 kg
[~2024-08-04 16:23] MED LIST changes: +GABA-1490 PO; +GABA-1635 PO; -GABA600T4 PO; -GABA800T4 PO; +GLIP10TA15 PO; -GLIP10TA6 PO; -NIFE10CA2 PO; +NIFE10CA61 PO
[2024-08-04 16:26] VITALS: TEMP 96.7
[2024-08-04 18:41] LABS: BASO % 0.7 % (0.0-1.0); EOS # 0.1 10^3/uL (0.0-0.5); EOS % 2.8 % (0.0-3.0); HEMATOCRIT 34.3 % (42.0-52.0); LYMPH # 1.4 10^3/uL (1.5-5.0); LYMPH % 31.3 % (24.0-44.0); MEAN CORPUSCULAR HEMOGLOBIN 27.4 pg (27.0-33.0); MEAN CORPUSCULAR HGB CONC 32.1 g/dl (32.0-36.5); MEAN CORPUSCULAR VOLUME 85.5 fl (80.0-96.0); MONO # 1.1 10^3/uL (0.0-0.8); MONO % 22.8 % (2.0-8.0); NEUTROPHILS # 1.9 10^3/uL (1.5-8.5); PLATELET COUNT, AUTOMATED 337 10^3/uL (150-450); RED BLOOD COUNT 4.01 10^6/uL (4.30-6.10); WHITE BLOOD COUNT 4.6 10^3/uL (4.0-10.0)
[2024-08-04 19:06] LABS: CK-MB VALUE MASS 2.4 NG/ML (<3.6)
[2024-08-04 19:07] LABS: CALCIUM LEVEL 8.9 MG/DL (8.3-10.6); CREATININE FOR GFR 2.98 MG/DL (0.70-1.30); GLOMERULAR FILTRATION RATE 27.6 (>49); POTASSIUM SERUM 4.6 MMOL/L (3.5-5.1)
[2024-08-04 19:08] LABS: MB/CK RELATIVE INDEX 0.53 (< OR =4)
[2024-08-04] MEDS: **hydrALAZINE** 50 MG TAB PO ONE (20:21)
[2024-08-04] MEDS: CARVedilol 12.5 MG TAB PO ONE (20:21)
[2024-08-04] MEDS ORDERED: METH-1164 (20:24)
[2024-08-04] MEDS: PERCOCET 5MG/325MG TAB PO ONE (20:42)
[2024-08-04] MEDS: BACLOFEN 10 MG TAB PO ONE (20:42)
[2024-08-04] MEDS: ISOSORBIDE DIN. (ISORDIL) 30 MG TAB PO ONE (20:43)
[2024-08-04] MEDS: ONDANSETRON 4MG 2ML VIAL IV ONE (22:24)
[2024-08-04 23:30] VITALS: BP 129/64; O2SAT 98
== END 2024-08-04 23:45 | disposition home or self-care (01) ==
LOC: M ED 16:23
DX: N18.9 Chronic kidney disease, unspecified (principal); K21.9 Gastro-esophageal reflux disease without esophagitis; I25.2 Old myocardial infarction; J44.9 Chronic obstructive pulmonary disease, unspecified; J45.909 Unspecified asthma, uncomplicated; M54.50 Low back pain, unspecified; Z79.82 Long term (current) use of aspirin; Z79.02 Long term (current) use of antithrombotics/antiplatelets; Z79.4 Long term (current) use of insulin; Z79.899 Other long term (current) drug therapy
CPT/HCPCS: 76775; 80048; 82550; 82553; 84484; 85025; 93005; 93041; 96374; 99285; J2405

== ENCOUNTER 2024-09-26 17:55 | Emergency (ER) | payer MEDICARE ==
[~2024-09-26] VITALS: Ht 175.3 cm; Wt 88.0 kg
[~2024-09-26 17:55] MED LIST changes: +METH-1164 PO
[2024-09-26 18:40] LABS: BASO # 0.1 10^3/uL (0.0-0.2); BASO % 0.8 % (0.0-1.0); EOS # 0.5 10^3/uL (0.0-0.5); EOS % 7.2 % (0.0-3.0); HEMATOCRIT 32.6 % (42.0-52.0); HEMOGLOBIN 10.3 g/dl (13.5-17.5); LYMPH # 2.4 10^3/uL (1.5-5.0); LYMPH % 37.2 % (24.0-44.0); MEAN CORPUSCULAR HEMOGLOBIN 26.8 pg (27.0-33.0); MEAN CORPUSCULAR HGB CONC 31.6 g/dl (32.0-36.5); MEAN CORPUSCULAR VOLUME 84.7 fl (80.0-96.0); MONO # 0.6 10^3/uL (0.0-0.8); MONO % 9.3 % (2.0-8.0); NEUTROPHILS % 45.3 % (36.0-66.0); PLATELET COUNT, AUTOMATED 304 10^3/uL (150-450); RED BLOOD COUNT 3.85 10^6/uL (4.30-6.10); WHITE BLOOD COUNT 6.5 10^3/uL (4.0-10.0)
[2024-09-26 18:55] LABS: INR 1.05; PARTIAL THROMBOPLASTIN TIME 33.6 SECONDS (24.8-34.2)
[2024-09-26 19:06] LABS: CPK CREATINE PHOSPHOKINASE 474 U/L (46-171)
[2024-09-26 19:07] LABS: ALBUMIN 3.8 G/DL (3.2-5.2); ALKALINE PHOSPHATASE 77 U/L (40-129); ALT/SGPT 18 U/L (7.0-40); AST/SGOT 13 U/L (<34); BILIRUBIN,DIRECT < 0.1 MG/DL (<0.4); BILIRUBIN,TOTAL 0.2 MG/DL (0.3-1.2); BLOOD UREA NITROGEN 50 MG/DL (9-23); CALCIUM LEVEL 9.4 MG/DL (8.3-10.6); CARBON DIOXIDE LEVEL 21 MMOL/L (20-31); CHLORIDE LEVEL 109 MMOL/L (98-107); CK-MB VALUE MASS 2.7 NG/ML (<3.6); CREATININE FOR GFR 2.67 MG/DL (0.70-1.30); GLOMERULAR FILTRATION RATE 31.4 (>49); GLUCOSE, FASTING 137 MG/DL (74-106); MB/CK RELATIVE INDEX 0.56 (< OR =4); POTASSIUM SERUM 5.5 MMOL/L (3.5-5.1); SODIUM LEVEL 140 MMOL/L (136-145); TOTAL PROTEIN 8.1 G/DL (5.7-8.2)
[2024-09-26] MEDS: ASPIRIN 81MG CHEW TABLET PO ONE (19:35)
[2024-09-26] MEDS: CALCIUM GLUCONATE 1,000 MG in DEXTROSE 5% (D5W) MINI-BAG PLU 100 ML IV ONE (19:41)
[2024-09-26] MEDS: DEXTROSE 50% 50ML SYRINGE IV STA (19:42)
[2024-09-26] MEDS: HumuLIN R (REGULAR) INSULIN (NovoLIN R) **100U/ML** PER UNIT IV ONE (19:42)
[2024-09-26 20:27] LABS: CK-MB VALUE MASS 2.3 NG/ML (<3.6)
[2024-09-26 20:28] LABS: MB/CK RELATIVE INDEX 0.55 (< OR =4)
[2024-09-26] MEDS: PATIROMER SORBITEX CALCIUM 8.4 GM POWDER PACKET (VELTASSA) PO ONE (21:14)
[2024-09-26] MEDS ORDERED: HYDR25TA87 PO (21:29)
[2024-09-26] MEDS ORDERED: FINA5TAB2 PO (21:29)
[2024-09-26] MEDS ORDERED: TORS20TA2 PO (21:31)
[2024-09-26] MEDS ORDERED: GABA-1172 PO (21:31)
[2024-09-26] MEDS ORDERED: SEMA0.257 PO (21:31)
[2024-09-26] MEDS ORDERED: LISI2.5T9 PO (21:31)
[2024-09-26] MEDS ORDERED: JARD1TAB PO (21:31)
[2024-09-26] MEDS ORDERED: CALC1CAP31 PO (21:31)
[2024-09-26] MEDS ORDERED: HOME MED LIST COMPLETE! XX SCH (21:35)
[2024-09-26] MEDS: CLOPIDOGREL 300 MG TAB (PLAVIX) PO ONE (22:45)
[2024-09-26] MEDS: HEPARIN SOD (PORCINE) 5000UNITS/ML 1ML VIAL/SYRINGE IV ONE (22:56)
[2024-09-26] MEDS: HEPARIN DRIP 25,000 UNITS in IV 1 EA IV SCH (22:57)
[2024-09-27] MEDS: PERCOCET 5MG/325MG TAB PO ONE
[2024-09-27 01:00] VITALS: O2SAT 98
[2024-09-27 01:15] VITALS: BP 150/85; TEMP 97.2
== END 2024-09-27 01:27 | disposition short-term general hospital (02) ==
LOC: M ED 17:55
DX: I20.0 Unstable angina (principal); E87.5 Hyperkalemia; N18.9 Chronic kidney disease, unspecified; I25.2 Old myocardial infarction; E11.9 Type 2 diabetes mellitus without complications; J45.909 Unspecified asthma, uncomplicated; E78.5 Hyperlipidemia, unspecified; I10 Essential (primary) hypertension; M10.9 Gout, unspecified; Z79.82 Long term (current) use of aspirin; Z79.02 Long term (current) use of antithrombotics/antiplatelets; Z79.811 Long term (current) use of aromatase inhibitors; Z79.899 Other long term (current) drug therapy; Z88.8 Allergy status to other drugs, medicaments and biological substances; Z87.820 Personal history of traumatic brain injury; Z86.79 Personal history of other diseases of the circulatory system; Z87.891 Personal history of nicotine dependence
CPT/HCPCS: 71046; 80048; 80076; 82550; 82553; 84484; 85025; 85610; 85730; 87486; 87581; 87633; 87798; 93005; 93041; 94760; 96365; 96366; 96375; 99285; J0612; J1815

== ENCOUNTER → 2024-12-31 | Outpatient (CLI) | payer MEDICARE, OTHER ==
[~2024-12-31] MED LIST changes: +ALBU2.5V10 INH; +AMLO1TAB25 PO; +BRIL90TA PO; +CALC1CAP31 PO; +DICL20GE TP; +DULC5TAB PO; +FINA5TAB2 PO; +GABA-1172 PO; +GLIP2.5T46 PO; -GLIP2.5T6 PO; +HYDR12CA PO; +INSULANT SC; +JARD1TAB PO; +LIDO3CRE14 TOP; +LISI2.5T9 PO; +MIRA3350 PO; +NOVOINJ3 SC; +SEMA0.257 PO; +TORS20TA2 PO; +VITA500045 PO
== END ==
LOC: M PLAIMG 11:36
PROVIDERS: ATTEND Physician Assistant
DX: R91.8 Other nonspecific abnormal finding of lung field (principal)

== ENCOUNTER 2025-01-07 08:46 | Day surgery (SDC) | payer MEDICARE, OTHER ==
[~2025-01-07] VITALS: Ht 175.3 cm; Wt 85.6 kg
[~2025-01-07 08:46] MED LIST changes: +MIDAZOLAM INJ 2MG/2ML VIAL As Ordered ONE; +PHENYLEPHRINE 10% OPHTH SOL 5ML OD PRN; +fentaNYL 100 MCG/2 ML INJECTION As Ordered ONE
[2025-01-07] MEDS: CYCLOPENTOLATE 1% OPHTH SOLN 2ML BTL OD SCH (09:24)
[2025-01-07] MEDS: PHENYLEPHRINE 2.5% OPHTH SOL 2ML OD SCH (09:24)
[2025-01-07] MEDS: LIDOCAINE 3.5 % 1ML OPHTH TOPICAL GEL OU ONE (09:24)
[2025-01-07] MEDS: TROPICAMIDE 1% OPHTH SOLN 15ML OD SCH (09:24)
[2025-01-07] MEDS: OFLOXACIN 0.3 % (OCUFLOX) OPTH SOL 5ML OD ONE (09:24)
[2025-01-07] MEDS ORDERED: GLUCOSE 4 GM CHEW PO PRN (10:10)
[2025-01-07] MEDS ORDERED: GLUCAGON INJ 1MG VIAL SC PRN (10:10)
[2025-01-07] MEDS ORDERED: DEXTROSE 50% 50ML SYRINGE IV PRN (10:10)
[2025-01-07] MEDS: INSULIN LISPRO (NovoLOG) PER UNIT SC PRN (10:19)
[2025-01-07] MEDS: LIDOCAINE 1% SDV 5ML VIAL As Ordered ONE (10:39)
[2025-01-07] MEDS: BSS IRRIG/VANCO(10MG)/TOBRA(5MG)/EPINEPH(1:1000-0.5CC)500ML BAG-ORONLY As Ordered ONE (10:39)
[2025-01-07] MEDS: CEFUROXIME 1MG/0.1ML INTRACAMERAL INJ As Ordered ONE (10:39)
[2025-01-07] MEDS: DUOVISC (0.50ML VISCOAT/0.85ML PROVISC) OPHTH KIT As Ordered ONE (10:45)
[2025-01-07 11:12] VITALS: BP 129/74; TEMP 97.8; O2SAT 97
== END 2025-01-07 12:10 | disposition home or self-care (01) ==
LOC: M SDC 08:46
PROVIDERS: ATTEND Ophthalmology
DX: H25.11 Age-related nuclear cataract, right eye (principal); I25.10 Atherosclerotic heart disease of native coronary artery without angina pectoris; E11.9 Type 2 diabetes mellitus without complications; I10 Essential (primary) hypertension; E78.5 Hyperlipidemia, unspecified; F41.9 Anxiety disorder, unspecified; F32.A Depression, unspecified; Z79.51 Long term (current) use of inhaled steroids; Z79.84 Long term (current) use of oral hypoglycemic drugs; Z79.4 Long term (current) use of insulin; Z79.899 Other long term (current) drug therapy; J44.9 Chronic obstructive pulmonary disease, unspecified; G47.33 Obstructive sleep apnea (adult) (pediatric); N40.0 Benign prostatic hyperplasia without lower urinary tract symptoms; Z86.73 Personal history of transient ischemic attack (TIA), and cerebral infarction without residual deficits; Z98.61 Coronary angioplasty status; Z88.8 Allergy status to other drugs, medicaments and biological substances
CPT/HCPCS: 36415; 66984; 84132; 92015; J0697; J2250; J3010; V2787

== ENCOUNTER → 2025-01-21 | Outpatient (CLI) | payer MEDICARE, OTHER ==
[~2025-01-21] MED LIST changes: -FLOM0.4C39 PO; +ISOS-18 PO; -ISOS30TAB PO; -MIDAZOLAM INJ 2MG/2ML VIAL As Ordered ONE; -PHENYLEPHRINE 10% OPHTH SOL 5ML OD PRN; +TAMS-18 PO; -fentaNYL 100 MCG/2 ML INJECTION As Ordered ONE
== END ==
LOC: EDBD → MERGE 20:00 → M SLEEP 20:00
PROVIDERS: ATTEND Physician Assistant
DX: G47.33 Obstructive sleep apnea (adult) (pediatric) (principal)

== ENCOUNTER → 2025-03-04 | Outpatient (CLI) | payer OTHER, MEDICARE ==
[~2025-03-04] VITALS: Ht 175.3 cm; Wt 86.2 kg
[~2025-03-04] MED LIST changes: +BSS IRRIG/VANCO(10MG)/TOBRA(5MG)/EPINEPH(1:1000-0.5CC)500ML BAG-ORONLY As Ordered ONE; +CEFUROXIME 1 MG/0.1 ML INTRACAMERAL INJ As Ordered ONE; +CYCLOPENTOLATE 1% OPHTH SOLN 2 ML BTL OS SCH; +LIDOCAINE 1% SDV 5 ML VIAL As Ordered ONE; +LIDOCAINE 3.5% 1 ML OPHTH TOPICAL GEL OU ONE; +LISI40TA10 PO; -LISI40TA4 PO; +MIDAZOLAM INJ 2 MG/2 ML VIAL As Ordered ONE; +OFLOXACIN 0.3 % (OCUFLOX) OPTH SOL 5ML OS ONE; +PHENYLEPHRINE 10% OPHTH SOL 5ML OS PRN; +PHENYLEPHRINE 2.5% OPHTH SOL 2ML OS SCH; +TROPICAMIDE 1% OPHTH SOLN 15ML OS SCH; +fentaNYL 100 MCG/2 ML INJECTION As Ordered ONE
[2025-03-04 10:40] VITALS: BP 140/74; TEMP 96.9; O2SAT 98
== END ==
LOC: M LAB 03-01 09:39 → M SDC 09:39 → EDSTATUS 14:30
PROVIDERS: ATTEND Ophthalmology
DX: H25.12 Age-related nuclear cataract, left eye (principal); Z53.09 Procedure and treatment not carried out because of other contraindication; E87.5 Hyperkalemia

== ENCOUNTER 2025-04-29 07:55 | Day surgery (SDC) | payer MEDICARE, OTHER ==
[~2025-04-29] VITALS: Ht 175.3 cm; Wt 90.7 kg
[~2025-04-29 07:55] MED LIST changes: +ALLO300T2 PO; +ASPI81TA26 PO; -BSS IRRIG/VANCO(10MG)/TOBRA(5MG)/EPINEPH(1:1000-0.5CC)500ML BAG-ORONLY As Ordered ONE; -CEFUROXIME 1 MG/0.1 ML INTRACAMERAL INJ As Ordered ONE; +D 50CAP2 PO; +HYDR12.510 PO; -HYDR12CA PO; -LIDOCAINE 1% SDV 5 ML VIAL As Ordered ONE; -LIDOCAINE 3.5% 1 ML OPHTH TOPICAL GEL OU ONE; -MIDAZOLAM INJ 2 MG/2 ML VIAL As Ordered ONE; +NITR0.4S14; -OFLOXACIN 0.3 % (OCUFLOX) OPTH SOL 5ML OS ONE; -PHENYLEPHRINE 2.5% OPHTH SOL 2ML OS SCH; +SEMA0.257; -TROPICAMIDE 1% OPHTH SOLN 15ML OS SCH; -fentaNYL 100 MCG/2 ML INJECTION As Ordered ONE
[2025-04-29] MEDS: TROPICAMIDE 1% OPHTH SOLN 15ML OS SCH (08:59)
[2025-04-29] MEDS: LIDOCAINE 3.5% 1 ML OPHTH TOPICAL GEL OU ONE (08:59)
[2025-04-29] MEDS: OFLOXACIN 0.3 % (OCUFLOX) OPTH SOL 5ML OS ONE (08:59)
[2025-04-29] MEDS: PHENYLEPHRINE 2.5% OPHTH SOL 2ML OS SCH (08:59)
[2025-04-29] MEDS ORDERED: GLUCAGON INJ 1 MG VIAL SC PRN (09:00)
[2025-04-29] MEDS ORDERED: GLUCOSE 4 GM CHEW PO PRN (09:00)
[2025-04-29] MEDS ORDERED: DEXTROSE 50% 50 ML SYRINGE IV PRN (09:00)
[2025-04-29] MEDS: INSULIN LISPRO (NovoLOG) PER UNIT SC PRN (09:11)
[2025-04-29] MEDS ORDERED: MIDAZOLAM INJ 2 MG/2 ML VIAL As Ordered ONE (09:27)
[2025-04-29] MEDS: LIDOCAINE 1% SDV 5 ML VIAL As Ordered ONE (09:30)
[2025-04-29] MEDS: BSS IRRIG/VANCO(10MG)/TOBRA(5MG)/EPINEPH(1:1000-0.5CC)500ML BAG-ORONLY As Ordered ONE (09:35)
[2025-04-29] MEDS: CEFUROXIME 1 MG/0.1 ML INTRACAMERAL INJ As Ordered ONE (09:35)
[2025-04-29 09:45] VITALS: BP 139/74; TEMP 97.1; O2SAT 96
== END 2025-04-29 10:04 | disposition home or self-care (01) ==
LOC: M SDC 07:55
PROVIDERS: ATTEND Ophthalmology
DX: E11.36 Type 2 diabetes mellitus with diabetic cataract (principal); H25.12 Age-related nuclear cataract, left eye; I12.9 Hypertensive chronic kidney disease with stage 1 through stage 4 chronic kidney disease, or unspecified chronic kidney disease; E11.22 Type 2 diabetes mellitus with diabetic chronic kidney disease; N18.4 Chronic kidney disease, stage 4 (severe); E11.40 Type 2 diabetes mellitus with diabetic neuropathy, unspecified; I25.10 Atherosclerotic heart disease of native coronary artery without angina pectoris; E78.00 Pure hypercholesterolemia, unspecified; I25.2 Old myocardial infarction; Z95.5 Presence of coronary angioplasty implant and graft; G47.30 Sleep apnea, unspecified; Z79.899 Other long term (current) drug therapy; Z79.85 Long-term (current) use of injectable non-insulin antidiabetic drugs; Z79.4 Long term (current) use of insulin; Z79.02 Long term (current) use of antithrombotics/antiplatelets; Z79.82 Long term (current) use of aspirin; Z88.8 Allergy status to other drugs, medicaments and biological substances; M10.9 Gout, unspecified
CPT/HCPCS: 66984; 92015; J0697; J2250; J3010; V2787

== ENCOUNTER → 2025-06-05 | Outpatient (CLI) | payer MEDICARE ==
[~2025-06-05] MED LIST changes: +BUDE10.2 INH; -CYCLOPENTOLATE 1% OPHTH SOLN 2 ML BTL OS SCH; +ERGO125013 PO; -PHENYLEPHRINE 10% OPHTH SOL 5ML OS PRN; -VITA500045 PO
== END ==
LOC: M PLAIMG 12:38
PROVIDERS: ATTEND Internal Medicine Cardiovascular Disease
DX: R06.02 Shortness of breath (principal); R60.0 Localized edema; I71.21 Aneurysm of the ascending aorta, without rupture

== ENCOUNTER 2025-06-09 09:50 | Inpatient (IN) | payer MEDICARE ==
[~2025-06-09] VITALS: Ht 175.3 cm; Wt 95.5 kg
[~2025-06-09 09:50] MED LIST changes: -BUDE10.2 INH
[2025-06-09 10:42] LABS: BASO # 0.1 10^3/uL (0.0-0.2); BASO % 0.6 % (0.0-1.0); EOS # 0.4 10^3/uL (0.0-0.5); EOS % 4.0 % (0.0-3.0); LYMPH # 3.4 10^3/uL (1.5-5.0); LYMPH % 31.9 % (24.0-44.0); MONO # 0.9 10^3/uL (0.0-0.8); MONO % 8.2 % (2.0-8.0); NEUTROPHILS # 5.8 10^3/uL (1.5-8.5); NEUTROPHILS % 54.8 % (36.0-66.0); PLATELET COUNT, AUTOMATED 278 10^3/uL (150-450)
[2025-06-09 11:14] LABS: CK-MB VALUE MASS 4.2 NG/ML (<3.6)
[2025-06-09 11:16] LABS: ALT/SGPT 21 U/L (7.0-40); AST/SGOT 30 U/L (<34); CALCIUM LEVEL 9.2 MG/DL (8.3-10.6); CARBON DIOXIDE LEVEL 21 MMOL/L (20-31); CHLORIDE LEVEL 110 MMOL/L (98-107); CREATININE FOR GFR 2.62 MG/DL (0.70-1.30); GLOMERULAR FILTRATION RATE 26.6 (>49); POTASSIUM SERUM 4.9 MMOL/L (3.5-5.1); SODIUM LEVEL 142 MMOL/L (136-145)
[2025-06-09 11:24] LABS: CPK CREATINE PHOSPHOKINASE 885 U/L (46-171); MB/CK RELATIVE INDEX 0.47 (< OR =4)
[2025-06-09 12:44] LABS: CK-MB VALUE MASS 4.3 NG/ML (<3.6)
[2025-06-09 12:46] LABS: CPK CREATINE PHOSPHOKINASE 877.0 U/L (46-171); MB/CK RELATIVE INDEX 0.49 (< OR =4)
[2025-06-09] MEDS ORDERED: BUDE10.2 INH (13:05)
[2025-06-09] MEDS: FAMOTIDINE 20 MG/2 ML VIAL IVP ONE (13:08)
[2025-06-09] MEDS ORDERED: HOME MED LIST COMPLETE! XX SCH (13:10)
[2025-06-09] MEDS ORDERED: ALBUTEROL 90 MCG/ACT 8 GM HFA INHALER INH PRN (15:25)
[2025-06-09] MEDS ORDERED: NITROGLYCERIN 0.4 MG SUBL TABLET SL PRN (15:55)
[2025-06-09] MEDS ORDERED: GLUCAGON INJ 1 MG VIAL SC PRN (16:00)
[2025-06-09] MEDS ORDERED: GLUCOSE 4 GM CHEW PO PRN (16:00)
[2025-06-09] MEDS ORDERED: DEXTROSE 50% 50 ML SYRINGE IV PRN (16:00)
[2025-06-09] MEDS: PANTOPRAZOLE 40MG TAB PO ONE (16:39)
[2025-06-09] MEDS: amLODIPine 10 MG TAB PO ONE (16:39)
[2025-06-09] MEDS: SUCRALFATE 1 GM TAB PO SCH (16:40)
[2025-06-09] MEDS ORDERED: INSULIN LISPRO (NovoLOG) PER UNIT SC SCH (17:30)
[2025-06-09] MEDS: INSULIN LISPRO (NovoLOG) PER UNIT SC SCH ×2 (17:55→21:01)
[2025-06-09 18:45] LABS: CK-MB VALUE MASS 5.2 NG/ML (<3.6)
[2025-06-09 18:47] LABS: CPK CREATINE PHOSPHOKINASE 932.0 U/L (46-171); MB/CK RELATIVE INDEX 0.55 (< OR =4)
[2025-06-09] MEDS: SYMBICORT 160/4.5MCG INHALER 6GM INH SCH (20:19)
[2025-06-09] MEDS: busPIRone 5 MG TAB PO SCH (20:59)
[2025-06-09] MEDS: GABAPENTIN 300 MG CAP PO SCH (20:59)
[2025-06-09] MEDS: INSULIN GLARGINE-YFGN 1 UNITS/0.01 ML SC SCH (21:25)
[2025-06-09 21:43] VITALS: TEMP 97.5; O2SAT 95
[2025-06-09 21:56] VITALS: BP 170/86; TEMP 97.5; O2SAT 98
[2025-06-09] MEDS: HEPARIN SOD 5000 UNITS/ML 1 ML VIAL/SYRINGE SQ SCH (22:04)
[2025-06-09 23:06] VITALS: BP 139/71; TEMP 97.6; O2SAT 93
[2025-06-10] VITALS (7 sets, daily range): BP systolic 143–168; BP diastolic 78–90; TEMP 97.4–98.6; O2SAT 92–97
[2025-06-10 00:36] LABS: CK-MB VALUE MASS 5.3 NG/ML (<3.6)
[2025-06-10 00:38] LABS: CPK CREATINE PHOSPHOKINASE 814.0 U/L (46-171); MB/CK RELATIVE INDEX 0.65 (< OR =4)
[2025-06-10 05:22] LABS: PLATELET COUNT, AUTOMATED 272 10^3/uL (150-450)
[2025-06-10 05:52] LABS: CPK CREATINE PHOSPHOKINASE 652.0 U/L (46-171)
[2025-06-10 05:53] LABS: CALCIUM LEVEL 8.4 MG/DL (8.3-10.6); CARBON DIOXIDE LEVEL 21.0 MMOL/L (20-31); CHLORIDE LEVEL 108.0 MMOL/L (98-107); CK-MB VALUE MASS 4.3 NG/ML (<3.6); CREATININE FOR GFR 2.93 MG/DL (0.70-1.30); GLOMERULAR FILTRATION RATE 23.3 (>49); MB/CK RELATIVE INDEX 0.65 (< OR =4); POTASSIUM SERUM 6.0 MMOL/L (3.5-5.1); SODIUM LEVEL 137.0 MMOL/L (136-145)
[2025-06-10] MEDS: ASPIRIN 81 MG ENTERIC TABLET PO SCH (08:56)
[2025-06-10] MEDS: ATORVASTATIN 20 MG TAB PO SCH (08:56)
[2025-06-10] MEDS: CALCITRIOL 0.25 MCG CAP (S0169) PO SCH (08:57)
[2025-06-10] MEDS: PANTOPRAZOLE 40MG TAB PO SCH (08:57)
[2025-06-10] MEDS: amLODIPine 10 MG TAB PO SCH (08:57)
[2025-06-10] MEDS: TORSEMIDE 20 MG TAB PO SCH (08:58)
[2025-06-10] MEDS: CLOPIDOGREL 75 MG TAB PO SCH (08:59)
[2025-06-10 09:31] LABS: C REACTIVE PROTEIN QUANTITATIV 2.31 MG/DL (<1.0)
[2025-06-10 09:38] LABS: ERYTHROCYTE SEDIMENTATION RATE > 130 mm/hr (0-20)
[2025-06-10 10:04] LABS: CK-MB VALUE MASS 4.5 NG/ML (<3.6)
[2025-06-10] MEDS: CEFDINIR 300 MG CAP PO SCH (10:13)
[2025-06-10] MEDS: DOXYCYCLINE HYCLATE 100 MG TABLET PO SCH (10:13)
[2025-06-10] MEDS: PATIROMER SORBITEX CALCIUM 8.4GM POWDER PACKET PO ONE (10:13)
[2025-06-10 10:15] LABS: CPK CREATINE PHOSPHOKINASE 686.0 U/L (46-171); MB/CK RELATIVE INDEX 0.65 (< OR =4)
[2025-06-10] MEDS: FUROSEMIDE 100 MG/10 ML VIAL IV SCH (10:49)
[2025-06-11] VITALS (7 sets, daily range): BP systolic 131–170; BP diastolic 71–90; TEMP 97.5–98.3; O2SAT 93–98
[2025-06-11 06:14] LABS: PLATELET COUNT, AUTOMATED 287 10^3/uL (150-450)
[2025-06-11 06:52] LABS: CALCIUM LEVEL 9.0 MG/DL (8.3-10.6); CARBON DIOXIDE LEVEL 23.0 MMOL/L (20-31); CHLORIDE LEVEL 105.0 MMOL/L (98-107); CREATININE FOR GFR 3.03 MG/DL (0.70-1.30); GLOMERULAR FILTRATION RATE 22.4 (>49); POTASSIUM SERUM 4.9 MMOL/L (3.5-5.1); SODIUM LEVEL 139.0 MMOL/L (136-145)
[2025-06-11 06:53] LABS: IRON (FE) 95.0 UG/DL (65-175); PERCENT SATURATION 39.6 % (19.7-50.0)
[2025-06-11 06:55] LABS: TOTAL 25(OH) VITAMIN D 8.9 NG/ML (20.0-100.0)
[2025-06-11] MEDS: PATIROMER SORBITEX CALCIUM 8.4GM POWDER PACKET PO SCH (12:37)
[2025-06-11] MEDS: INSULIN GLARGINE-YFGN 1 UNITS/0.01 ML SC ONE (12:38)
[2025-06-11] MEDS: INSULIN LISPRO (NovoLOG) PER UNIT SC SCH (12:39)
[2025-06-11] MEDS ORDERED: NALOXONE INJ 0.4 MG/1 ML VIAL IV PRN (16:25)
[2025-06-11] MEDS: PERCOCET 5MG/325MG TAB PO ONE (16:50)
[2025-06-11] MEDS: PERCOCET 5MG/325MG TAB PO SCH (18:00)
[2025-06-12] VITALS (7 sets, daily range): BP systolic 131–173; BP diastolic 80–98; TEMP 97.1–99; O2SAT 93–95
[2025-06-12 06:42] LABS: PLATELET COUNT, AUTOMATED 329 10^3/uL (150-450)
[2025-06-12 07:14] LABS: CALCIUM LEVEL 8.4 MG/DL (8.3-10.6); CARBON DIOXIDE LEVEL 24.0 MMOL/L (20-31); CHLORIDE LEVEL 106.0 MMOL/L (98-107); CREATININE FOR GFR 3.08 MG/DL (0.70-1.30); GLOMERULAR FILTRATION RATE 21.9 (>49); POTASSIUM SERUM 4.5 MMOL/L (3.5-5.1); SODIUM LEVEL 142.0 MMOL/L (136-145)
[2025-06-12] MEDS: VITAMIN D 1,000 INTERNATIONAL UNITS TABLET PO SCH (09:21)
[2025-06-12] MEDS: DARBEPOETIN 100 MCG/0.5 ML *NON-DIALYSIS* SYRINGE SC SCH (10:07)
[2025-06-12 11:49] LABS: TOTAL PROTEIN 24 HOUR URINE 8521.2 MG/24HR (50-80); URINE TOTAL PROTEIN 236.7 MG/DL (0-14)
[2025-06-12] MEDS: MIRALAX *UNIT DOSE* 17 GM PACKET PO ONE (16:15)
[2025-06-12] MEDS: SENNOSIDES/DOCUSATE SODIUM 8.6 MG/50MG TAB PO ONE (16:16)
[2025-06-12] MEDS: BISACODYL 5 MG TAB PO ONE (16:16)
[2025-06-12] MEDS: LanTUS (INSULIN GLARGINE INJ) 1 UNITS/0.01 ML SC SCH (20:33)
[2025-06-12] MEDS ORDERED: INSULIN GLARGINE-YFGN 1 UNITS/0.01 ML SC SCH (21:00)
[2025-06-13] VITALS (7 sets, daily range): BP systolic 117–158; BP diastolic 65–86; TEMP 97–98.7; O2SAT 94–98
[2025-06-13 05:53] LABS: PLATELET COUNT, AUTOMATED 332 10^3/uL (150-450)
[2025-06-13 06:15] LABS: CALCIUM LEVEL 8.3 MG/DL (8.3-10.6); CARBON DIOXIDE LEVEL 24.0 MMOL/L (20-31); CHLORIDE LEVEL 105.0 MMOL/L (98-107); CREATININE FOR GFR 3.54 MG/DL (0.70-1.30); GLOMERULAR FILTRATION RATE 18.6 (>49); POTASSIUM SERUM 4.6 MMOL/L (3.5-5.1); SODIUM LEVEL 140.0 MMOL/L (136-145)
[2025-06-13] MEDS: MIRALAX *UNIT DOSE* 17 GM PACKET PO PRN (09:11)
[2025-06-13] MEDS: SENNOSIDES/DOCUSATE SODIUM 8.6 MG/50MG TAB PO PRN (09:11)
[2025-06-13] MEDS: BISACODYL 5 MG TAB PO PRN (09:12)
[2025-06-13] MEDS ORDERED: NALOXONE INJ 0.4 MG/1 ML VIAL IV PRN (10:20)
[2025-06-13] MEDS: HYDROMORPHONE HCL 0.5 MG/0.5 ML SYRINGE IV ONE (10:33)
[2025-06-13 22:37] LABS: URINE STREP PNEUMONIAE ANTIGEN Not Detected (Not Detected)
[2025-06-14 03:31] VITALS: BP 128/72; TEMP 97.4; O2SAT 97
[2025-06-14 06:01] LABS: PLATELET COUNT, AUTOMATED 325 10^3/uL (150-450)
[2025-06-14 06:28] LABS: CALCIUM LEVEL 8.5 MG/DL (8.3-10.6); CARBON DIOXIDE LEVEL 22.0 MMOL/L (20-31); CHLORIDE LEVEL 107.0 MMOL/L (98-107); CREATININE FOR GFR 3.66 MG/DL (0.70-1.30); GLOMERULAR FILTRATION RATE 17.8 (>49); POTASSIUM SERUM 4.2 MMOL/L (3.5-5.1); SODIUM LEVEL 141.0 MMOL/L (136-145)
[2025-06-14 07:21] VITALS: BP 157/93; TEMP 97.2; O2SAT 99
[2025-06-14] MEDS: CEFDINIR 300 MG CAP PO SCH (09:08)
[2025-06-14 16:40] VITALS: BP 146/80; TEMP 97.7; O2SAT 95
[2025-06-14 19:48] VITALS: BP 152/84; TEMP 98.5; O2SAT 98
[2025-06-14 20:28] VITALS: BP_SYST 180; BP_DIAS 110; BP_DIAS 86; TEMP 98.6; O2SAT 98
[2025-06-14 20:47] VITALS: BP 166/86
[2025-06-15 04:28] VITALS: BP 158/82; TEMP 97.9; O2SAT 100
[2025-06-15 06:56] LABS: PLATELET COUNT, AUTOMATED 316 10^3/uL (150-450)
[2025-06-15 07:15] LABS: CALCIUM LEVEL 8.8 MG/DL (8.3-10.6); CARBON DIOXIDE LEVEL 24.0 MMOL/L (20-31); CHLORIDE LEVEL 107.0 MMOL/L (98-107); CREATININE FOR GFR 3.47 MG/DL (0.70-1.30); GLOMERULAR FILTRATION RATE 19.0 (>49); POTASSIUM SERUM 4.4 MMOL/L (3.5-5.1); SODIUM LEVEL 141.0 MMOL/L (136-145)
[2025-06-15] MEDS: VITAMIN D 1,000 INTERNATIONAL UNITS TABLET PO SCH (08:57)
[2025-06-15] MEDS: TORSEMIDE 20 MG TAB PO ONE (11:46)
[2025-06-15 12:00] VITALS: TEMP 98.6; O2SAT 98
[2025-06-15] MEDS: INSULIN LISPRO (NovoLOG) PER UNIT SC SCH (12:00)
[2025-06-15] MEDS: TORSEMIDE 20 MG TAB PO SCH (16:08)
[2025-06-15 19:28] VITALS: BP 160/73; TEMP 98.7; O2SAT 99
[2025-06-15] MEDS: LanTUS (INSULIN GLARGINE INJ) 1 UNITS/0.01 ML SC SCH (20:49)
[2025-06-15 23:21] LABS: MYCOPLASMA PNEUMONIAE IGG 2.25 (<=0.90); MYCOPLASMA PNEUMONIAE IGM 13.0 U/mL (<770)
[2025-06-16 03:49] VITALS: BP 160/87; TEMP 98.2; O2SAT 99
[2025-06-16 07:46] LABS: PLATELET COUNT, AUTOMATED 370 10^3/uL (150-450)
[2025-06-16 08:02] VITALS: BP 162/85
[2025-06-16 08:03] LABS: CALCIUM LEVEL 9.0 MG/DL (8.3-10.6); CARBON DIOXIDE LEVEL 24.0 MMOL/L (20-31); CHLORIDE LEVEL 107.0 MMOL/L (98-107); CREATININE FOR GFR 3.55 MG/DL (0.70-1.30); GLOMERULAR FILTRATION RATE 18.5 (>49); POTASSIUM SERUM 4.5 MMOL/L (3.5-5.1); SODIUM LEVEL 143.0 MMOL/L (136-145)
[2025-06-16] MEDS ORDERED: TORS20TA2 PO (08:21)
[2025-06-16] MEDS ORDERED: LANTINJ4 SC (10:48)
[2025-06-16] MEDS ORDERED: CORE25TA PO (10:48)
[2025-06-16] MEDS ORDERED: NOVOINJ3 SC (10:48)
[2025-06-16] MEDS ORDERED: ALCOPAD25 TOP (10:50)
[2025-06-16] MEDS ORDERED: GLUC1TES2 XX (10:50)
[2025-06-16] MEDS ORDERED: LANC30MI XX (10:50)
[2025-06-16] MEDS ORDERED: PEN-308 SC (10:50)
[2025-06-16] MEDS ORDERED: HYDR-4514 PO (11:15)
== END 2025-06-16 13:10 | disposition home or self-care (01) | DRG 698 ==
LOC: M ED 09:50 → M ED INP 15:43 → M PCU 21:43 → M MS4PR 06-14 20:26
PROVIDERS: ADMIT General Practice; ATTEND General Practice
DX: E11.21 Type 2 diabetes mellitus with diabetic nephropathy (principal); J18.9 Pneumonia, unspecified organism; J45.901 Unspecified asthma with (acute) exacerbation; E87.70 Fluid overload, unspecified; N18.4 Chronic kidney disease, stage 4 (severe); R07.9 Chest pain, unspecified; R60.1 Generalized edema; I16.0 Hypertensive urgency; I12.9 Hypertensive chronic kidney disease with stage 1 through stage 4 chronic kidney disease, or unspecified chronic kidney disease; E11.43 Type 2 diabetes mellitus with diabetic autonomic (poly)neuropathy; E11.22 Type 2 diabetes mellitus with diabetic chronic kidney disease; J44.9 Chronic obstructive pulmonary disease, unspecified; E78.5 Hyperlipidemia, unspecified; I25.10 Atherosclerotic heart disease of native coronary artery without angina pectoris; I25.2 Old myocardial infarction; R51.9 Headache, unspecified; G47.33 Obstructive sleep apnea (adult) (pediatric); R63.5 Abnormal weight gain; N25.89 Other disorders resulting from impaired renal tubular function; E87.5 Hyperkalemia; R80.9 Proteinuria, unspecified; F32.A Depression, unspecified; F41.9 Anxiety disorder, unspecified; N40.1 Benign prostatic hyperplasia with lower urinary tract symptoms; F43.10 Post-traumatic stress disorder, unspecified; R33.9 Retention of urine, unspecified; Z86.73 Personal history of transient ischemic attack (TIA), and cerebral infarction without residual deficits; Z87.891 Personal history of nicotine dependence; Z98.42 Cataract extraction status, left eye; Z79.82 Long term (current) use of aspirin; Z87.820 Personal history of traumatic brain injury; Z79.899 Other long term (current) drug therapy; Z79.4 Long term (current) use of insulin; Z88.8 Allergy status to other drugs, medicaments and biological substances